=== PATIENT | female | born 1945 | race Caucasian/White ===

== ENCOUNTER 2023-12-10 19:44 | Emergency (ER) | payer MEDICARE, OTHER, SELFPAY ==
[2023-12-10 19:45] VITALS: BP 150/66
[2023-12-10 20:03] VITALS: BP 149/58
[2023-12-10 20:09] VITALS: BMI 39.6
[2023-12-10 20:23] LABS: % Basophils 0.3 % (0-2); % Eosinophils 1.2 % (0-6); % Immature Granulocytes 0.2 % (0-0.5); % Lymphocytes 9.9 % (20.5-51.1); % Monocytes 5.2 % (1.7-9.3); % Neutrophils 83.2 % (42.2-75.2); Absolute Eosinophils 0.2 10^3/uL (0-0.7); Absolute Lymphocytes 1.2 10^3/uL (1.2-3.4); Absolute Monocytes 0.6 10^3/uL (0.1-0.6); Absolute Neutrophils 10.1 10^3/uL (1.4-6.5); Hematocrit 38.2 % (37.0-47.0); Hemoglobin 12.6 g/dL (12.0-16.0); Mean Corpuscular Hgb 30.5 pg (27.0-31.0); Mean Corpuscular Volume 92.5 fL (81.0-99.0); Mean Platelet Volume 10.1 fL (7.4-10.4); Nucleated Red Blood Cells % 0 %; Platelet Count 286 10^3/uL (130-400); Red Blood Cell Count 4.13 10^6/uL (4.20-5.40); Red Cell Dist. Width 13.7 % (11.5-14.5); White Blood Cell Count 12.1 10^3/uL (4.8-10.8)
--- NOTE | 2023-12-10 20:44 | ED.GENMED ---
History of Present Illness
General
Chief Complaint: Fainting/Passed Out
Source: patient
Exam Limitations: none
Time Seen by Provider: 12/10/23 20:30
Travel History
Have you had any contact with someone who has COVID-19?: No
Do you have any symptoms of coronavirus? Fever > 100 degrees, chills, cough, shortness of breath, sore throat, loss of taste or smell, muscle aches, or headache?: No
History of Present Illness
History of Present Illness:
See MDM
Past History
Past History
ED Past Medical History: HTN, NIDDM and Other (DVT); Negative Asthma or Hypercholesterolemia
ED Past Surgical History: Gynecological (Tubel)
Social History
Tobacco: Former smoker
Alcohol: None
Personal:
Living: alone
Employment: Employed
Phy Exam
Physical Exam
Physical Exam:
See MDM
Course
Orders/Labs/Results
Orders:
Orders
12/10/23 19:48
Electrocardiogram (*1) Urgent
Reason for Study: Syncope
EKG- Treatment ONCE
Accucheck Once [Bedside Glucose Monitoring-ONCE] As Directed
12/10/23 20:16
Complete Blood Count/With Diff Urgent
Comprehensive Metabolic Panel Urgent
12/10/23 20:55
Prothrombin Time Urgent
Abnormal Lab Results
12/10/23 12/10/23
20:16 20:55
WBC 12.1 H 10^3/uL
(4.8-10.8)
RBC 4.13 L 10^6/uL
(4.20-5.40)
Absolute Neuts (auto) 10.1 H 10^3/uL
(1.4-6.5)
Neutrophils % 83.2 H %
(42.2-75.2)
Lymphocytes % 9.9 L %
(20.5-51.1)
PT 46.8 H Sec
(11.4-14.6)
INR 5.02 H*
Sodium 131 L mmol/L
(135-145)
Carbon Dioxide 19 L mmol/L
(22-30)
BUN 35 H mg/dl
(7-17)
Glucose 264 H mg/dl
(70-99)
12/10/23 20:16
12/10/23 20:16
Vital Signs
Initial and Last Documented VS:
Initial Vital Signs
Temp Pulse Resp BP Pulse Ox
98.4 F 62 18 150/66 96
12/10/23 19:45 12/10/23 19:45 12/10/23 19:45 12/10/23 19:45 12/10/23 19:45
Last Documented Vital Signs
Temp Pulse Resp BP Pulse Ox
98.4 F 63 20 149/62 94
12/10/23 19:45 12/10/23 21:45 12/10/23 21:45 12/10/23 21:00 12/10/23 21:45
MDM/Problems Addressed
Differential Diagnosis Includes:
HPI and MDM Narrative:
78-year-old female presenting with a syncopal episode. Patient was standing and she started to shake and feel comfortable. She became nauseous. Family brought her down to the floor and she passed out for a moment. No seizure-like activity was
noted. No postictal state. Patient does not recollect the event. EMS arrived and patient was found to be hyperglycemic. Patient is a uyk-sjtogdq-asoxresoz diabetic and claims compliance
Patient currently lying in bed without any complaints. I discussed my concern for hyperglycemia as possible cause for mild dehydration as possible cause for vasovagal syncope.
I discussed that I cannot reliably rule out cardiac arrhythmia. Given how well-appearing she is, we discussed likely discharge home with tighter blood sugar control and speaking to her primary care doctor about possible Holter monitor
Physical exam
General: Well appearing and non-toxic
HEENT: protecting airway
Neck: appears supple
CV: No evidence of cyanosis. Regular rate and rhythm
Resp: No accessory muscle use. Lungs clear
Abd: Non-distended
Extremities: No deformities
Neuro: alert
Psych: Normal affect
Skin: Intact
Problems Addressed including Acute and Chronic Conditions affecting care:
1. Syncope
Acuity: acute
Prognosis: stable
Details: Likely vasovagal. Patient without complaint at the moment. EKG nonischemic
2. Hyperglycemia
Acuity: acute
Prognosis: stable
Details: Discussed talking to PCP about better blood control. Will give dose of insulin
Updates
I discussed her elevated INR. There is no evidence of bleeding. Discussed skipping her next 2 INR doses. In regards to her hyperglycemia, there is no evidence of DKA. We discussed insulin versus increasing her metformin. She will take an extra
dose of metformin at home. She will call her PCP tomorrow
Differential Diagnosis (but not limited to): Vasovagal syncope, cardiac arrhythmia, dehydration
Testing considered: Troponin but she denies chest pain
Drug therapy (if applicable): OTC meds, please see d/c instruction regarding Rx drugs
Amount and/or Complexity of Data Reviewed
Clinical info obtained from: Patient
External data reviewed: N/A
Labs I independently reviewed (but not limited to): Hyperglycemia without evidence of DKA
Radiology: N/A
Pulse Ox: not hypoxic
EKG independently reviewed: Sinus rhythm, normal axis, no STEMI
[employer] Consultant: Sinus rhythm
Critical Care: N/A
Risk of Complication:
Social Determinants of health: Good social support
Discussed with other providers: N/A
Escalation of Care includes Admit/Obs: After being observed in the Emergency Department, pt stable for discharge.
Occasional wrong word or 'sound a like' substitutions may have occurred due to the inherent limitations of voice recognition software. Read the chart carefully and recognize, using context, where substitutions have occurred.
*Critical Care Note
Total Time (30-74mins, 75-104mins- exclusive of procedures): Not Applicable
ED Attending Note
-
Portions of this chart may have been created with voice recognition software.� Occasional wrong word or��sound alike� substitutions may have occurred due to the inherent limitations of voice recognition software.
Discharge Plan
Departure
Patient Disposition: Home (Routine Discharge)
Date of Disposition: 12/10/23
Time of Disposition: 22:03
Patient with high blood pressure during this ER visit?: Yes
Discharge Problem:
Syncope, Hyperglycemia
Instructions: BLOOD PRESSURE
Prescriptions:
No Action
apixaban [Eliquis DVT-PE Treat 30D Start] 5 MG tablets,dose pack
5 - 10 mg PO DIRECTED Qty: 1 0RF
Referrals:
Lilian Carrera, DO [Family Provider] -
Activity Restrictions/Additional Instructions:
As we discussed, your INR is 5.02. Please skip your next 2 doses of Coumadin.
Your blood sugar was also elevated today. It was 264. Without checking your fingerstick routinely at home, it is possible that it has been elevated for quite some time. Please take an extra dose of metformin when you go home today. If your blood
sugar is still greater than 200 in the morning, you can take 1000 mg of metformin in the morning.
Please call your primary care physician first thing tomorrow morning and discuss all of this.
There is always the possibility of an abnormal heart rhythm that caused you to pass out. Please talk to your doctor about a possible Holter monitor.
Please return for any worsening symptoms.
You may return at any time if you have further concerns.
Interventions
Interventions:
*Risk Screen - Suicide Last Done: 12/10/23 19:45
*General Assessment Last Done: 12/10/23 20:09
*Neglect/Abuse Screening Last Done: 12/10/23 19:45
ED- Fall Risk Assessment Last Done: 12/10/23 20:09
*ED COVID-19 Vaccine History Last Done: 12/10/23 20:13
ED- Cardiac Assessment Last Done: 12/10/23 20:09
ED- Neurological Assessment Last Done: 12/10/23 20:09
[2023-12-10 20:45] LABS: ALT (SGPT) 16 U/L (0-35); AST (SGOT) 21 U/L (14-36); Albumin 4.2 g/dl (3.5-5.0); Alkaline Phosphatase 98 U/L (38-126); Blood Urea Nitrogen 35 mg/dl (7-17); Carbon Dioxide 19 mmol/L (22-30); Chloride 101 mmol/L (98-107); Estimated Creatinine Clearance 53 ml/min; Glucose 264 mg/dl (70-99); Potassium 4.5 mmol/L (3.5-5.1); Sodium 131 mmol/L (135-145); Total Bilirubin 0.5 mg/dl (0.2-1.3); Total Protein 7.2 g/dl (6.3-8.2); eGFR > 60.00
[2023-12-10 21:00] VITALS: BP 149/62
[2023-12-10 21:13] LABS: PT 46.8 Sec (11.4-14.6)
[2023-12-10 21:15] LABS: INR 5.02
== END 2023-12-10 22:13 | disposition home or self-care (01) ==
LOC: EMR 19:44
PROVIDERS: EMERGENCY PHYSICIAN Student in an Organized Health Care Education/Training Program; FAMILY PHYSICIAN Family Medicine
DX: R55 Syncope and collapse (principal); E11.65 Type 2 diabetes mellitus with hyperglycemia; E86.0 Dehydration; I10 Essential (primary) hypertension; Z87.891 Personal history of nicotine dependence
CPT/HCPCS: 99284; 80053; 85025; 85610; 93005

== ENCOUNTER 2024-08-25 02:16 | Inpatient (IN) | payer MEDICARE, OTHER, SELFPAY ==
[2024-08-24 23:15] VITALS: BP 215/91
[2024-08-24 23:42] VITALS: BP 200/125
[2024-08-24 23:47] VITALS: BMI 34.6
--- NOTE | 2024-08-24 23:54 | ED.GENMED ---
History of Present Illness
<Lee Mathis PA-C - Last Filed: 08/25/24 00:58>
General
Chief Complaint: Cough
Source: patient
Exam Limitations: none
Time Seen by Provider: 08/24/24 23:33
History of Present Illness
History of Present Illness:
79-year-old female presents with several days worth of worsening cough and fatigue. She has history of clots and is on Coumadin. No prior diagnosis of A-fib. She denies any leg swelling. She was hypoxic upon EMS arrival and was started on 2 L of
oxygen. She tried to go to the bathroom and got weak and could not stand up from the toilet and could not get herself off the floor. She did not injure herself or strike her head from this episode. Of note, patient's INR was supratherapeutic
earlier this week and she has not been taking it. She last checked her INR yesterday which is 3.8.
Past History
<Lee Mathis PA-C - Last Filed: 08/25/24 00:58>
Past History
ED Past Medical History: HTN, NIDDM and Other (DVT); Negative Asthma or Hypercholesterolemia
ED Past Surgical History: Gynecological (Tubel)
Social History
Tobacco: Former smoker
Alcohol: None
Personal:
Living: alone
Employment: Employed
Phy Exam
<Lee Mathis PA-C - Last Filed: 08/25/24 00:58>
Physical Exam
Physical Exam:
General: Well-appearing female no respiratory distress
HEENT: Normocephalic atraumatic
Heart: Tachycardic and irregular
Lungs: Slightly diminished on the right clear on the left
Abdomen is soft nontender nondistended
Extremities: No cyanosis or edema
Sepsis
<Lee Mathis PA-C - Last Filed: 08/25/24 00:58>
Sepsis Screening
Sepsis Assessment: Sepsis Ruled Out
Sepsis Screen
Sepsis Screen: Sepsis Ruled Out
Date: 08/25/24
Time: 00:58
<Meliton Lewis MD - Last Filed: 08/25/24 01:37>
Sepsis Screen
Sepsis Screen: Sepsis Ruled Out
Date: 08/25/24
Time: 01:36
Course
<Lee Mathis PA-C - Last Filed: 08/25/24 00:58>
Orders/Labs/Results
Orders:
Orders
08/24/24 23:34
Electrocardiogram (*1) Urgent
Reason for Study: Other
Other Reason for Exam: Possible Sepsis
Cardiac Monitoring- Treatment ONCE
EKG- Treatment ONCE
O2 Therapy [RESP] Urgent
Titrate/Wean O2 to maintain O2 sat greater than (%): 93
Special Instructions: TO MAINTAIN CONTINUOUS O2 SATS > OR = 93%
Pulse Ox/cont/shift [RESP] Urgent
Quantity: 1
Special Instructions: CONTINUOUS
08/24/24 23:36
Complete Blood Count/With Diff Urgent
Comprehensive Metabolic Panel Urgent
08/24/24 23:53
COVID-19 Antigen Urgent
Source: Nasal Swab
NT-proBNP Urgent
Prothrombin Time Urgent
Troponin I Urgent
Influenza A+B Rapid Molecular Urgent
CORNELIO Source: Nasal Swab
Specimen Description:
08/25/24 00:00
CR Chest - 2 Views Urgent
Reason For Exam: cough, weakness
08/25/24 00:19
0.9% Sodium Chloride 1000 ml [Nss] 1,000 ml IV BOLUS
08/25/24 00:53
Azithromycin 500 mg/250 ml [Zithromax Infusion] 500 mg in 250 ml IV NOW
CefTRIAXone [Rocephin] 1,000 mg IV NOW STA
Abnormal Lab Results
08/24/24 08/24/24
23:36 23:53
WBC 13.0 H 10^3/uL
(4.8-10.8)
MCHC 32.1 L g/dL
(33.0-37.0)
MPV 11.0 H fL
(7.4-10.4)
PT 24.9 H Sec
(11.4-14.6)
BUN 24 H mg/dl
(7-17)
Creatinine 1.2 H mg/dL
(0.6-1.0)
Glucose 377 H mg/dl
(70-99)
Calcium 15.2 H* mg/dl
(8.4-10.2)
AST 38 H U/L
(14-36)
08/24/24 23:36
08/24/24 23:36
Vital Signs
Initial and Last Documented VS:
Initial Vital Signs
Temp Pulse Resp BP Pulse Ox
98.7 F 126 24 215/91 93
08/24/24 23:15 08/24/24 23:15 08/24/24 23:15 08/24/24 23:15 08/24/24 23:15
Last Documented Vital Signs
Temp Pulse Resp BP Pulse Ox
98.7 F 123 17 200/125 93
08/24/24 23:15 08/24/24 23:45 08/24/24 23:45 08/24/24 23:42 08/24/24 23:45
<Meliton Lewis MD - Last Filed: 08/25/24 01:37>
Orders/Labs/Results
Orders:
Orders
08/24/24 23:34
Electrocardiogram (*1) Urgent
Reason for Study: Other
Other Reason for Exam: Possible Sepsis
Cardiac Monitoring- Treatment ONCE
EKG- Treatment ONCE
O2 Therapy [RESP] Urgent
Titrate/Wean O2 to maintain O2 sat greater than (%): 93
Special Instructions: TO MAINTAIN CONTINUOUS O2 SATS > OR = 93%
Pulse Ox/cont/shift [RESP] Urgent
Quantity: 1
Special Instructions: CONTINUOUS
08/24/24 23:36
Complete Blood Count/With Diff Urgent
Comprehensive Metabolic Panel Urgent
08/24/24 23:53
COVID-19 Antigen Urgent
Source: Nasal Swab
NT-proBNP Urgent
Prothrombin Time Urgent
Troponin I Urgent
Influenza A+B Rapid Molecular Urgent
CORNELIO Source: Nasal Swab
Specimen Description:
08/25/24 00:00
CR Chest - 2 Views Urgent
Reason For Exam: cough, weakness
08/25/24 00:19
0.9% Sodium Chloride 1000 ml [Nss] 1,000 ml IV BOLUS
08/25/24 00:53
Azithromycin 500 mg/250 ml [Zithromax Infusion] 500 mg in 250 ml IV NOW
CefTRIAXone [Rocephin] 1,000 mg IV NOW STA
Abnormal Lab Results
08/24/24 08/24/24
23:36 23:53
WBC 13.0 H 10^3/uL
(4.8-10.8)
MCHC 32.1 L g/dL
(33.0-37.0)
MPV 11.0 H fL
(7.4-10.4)
PT 24.9 H Sec
(11.4-14.6)
BUN 24 H mg/dl
(7-17)
Creatinine 1.2 H mg/dL
(0.6-1.0)
Glucose 377 H mg/dl
(70-99)
Calcium 15.2 H* mg/dl
(8.4-10.2)
AST 38 H U/L
(14-36)
08/24/24 23:36
08/24/24 23:36
Vital Signs
Initial and Last Documented VS:
Initial Vital Signs
Temp Pulse Resp BP Pulse Ox
98.7 F 126 24 215/91 93
08/24/24 23:15 08/24/24 23:15 08/24/24 23:15 08/24/24 23:15 08/24/24 23:15
Last Documented Vital Signs
Temp Pulse Resp BP Pulse Ox
98.7 F 123 17 200/125 93
08/24/24 23:15 08/24/24 23:45 08/24/24 23:45 08/24/24 23:42 08/24/24 23:45
<Lee Mathis PA-C - Last Filed: 08/25/24 00:58>
MDM/Problems Addressed
Differential Diagnosis Includes:
Patient here with cough. Question viral illness such as COVID or flu versus pneumonia versus CHF. Unlikely to be PE secondary to anticoagulated state.
She is hypoxic here going down to 88% on room air. Now on 2 L of oxygen. Chest x-ray ordered COVID flu test ordered labs including troponin, BNP INR pending
<Lee Mathis PA-C - Last Filed: 08/25/24 00:58>
*Critical Care Note
Total Time (30-74mins, 75-104mins- exclusive of procedures): Not Applicable
<Lee Mathis PA-C - Last Filed: 08/25/24 00:58>
Update Note
Update Note:
Patient's white blood cell count is 13,000 BNP is only 522. She does not look overloaded. Chest x-ray could be pneumonia in the right upper lobe versus mild pulmonary edema. Will gently hydrate given that her calcium is 15.2. Will start on
antibiotics to cover for pneumonia. She is hypoxic requiring 2 L of oxygen. Will admit to hospital
ED Attending Note
<Lee Mathis PA-C - Last Filed: 08/25/24 00:58>
-
Portions of this chart may have been created with voice recognition software.� Occasional wrong word or��sound alike� substitutions may have occurred due to the inherent limitations of voice recognition software.
<Meliton Lewis MD - Last Filed: 08/25/24 01:37>
ED Attending Note
Patient seen and examined by attending physician: Yes
I performed the substantive portion of visit, reviewed & personally made and approve the management plan that is documented in note by myself or CHINEDU.: Yes
ED Attending Note:
Cough for days. Increase shortness of breath today. Some myalgias. No pleuritic pain or chest pain. No fever at home.
On exam patient is nontoxic minimally tachypneic at rest. Mildly tachycardic at rest.
Lungs have crackles mostly in the right base. No wheezing or rhonchi. Heart tachycardic and regular. Abdomen soft and nontender. Extremities are unremarkable. Warm and dry. Perfusing well.
Most suspicious of an infectious etiology with a leukocytosis, possible pneumonia on x-ray. X-ray could be interpreted as CHF however no CHF history. Is actually lost weight. No leg edema reasonably normal proBNP.
Will give careful fluids, antibiotics. Hypercalcemia also needs to be worked up and managed. Fluids should help.
Discharge Plan
Departure
Patient Disposition: Admit
Date of Disposition: 08/25/24
Time of Disposition: 00:55
Admit to: Telemetry
Presentation/result/management discussed w/ accepting /: Hospitalist
Discharge Problem:
Pneumonia, Hypercalcemia
Prescriptions:
No Action
apixaban [Eliquis DVT-PE Treat 30D Start] 5 MG tablets,dose pack
5 - 10 mg PO DIRECTED Qty: 1 0RF
Referrals:
Lilian Carrera DO [Family Provider] -
Interventions
Interventions:
*Risk Screen - Suicide Last Done: 08/24/24 23:15
*General Assessment Last Done: 08/24/24 23:15
*Neglect/Abuse Screening Last Done: 08/24/24 23:15
ED- Fall Risk Assessment Last Done: 08/24/24 23:15
*ED COVID-19 Vaccine History Last Done: 08/24/24 23:15
ED- Pulmonary Assessment Last Done: 08/24/24 23:43
Discharge Date and Time
Print Language: [place]
[2024-08-25] VITALS (20 sets, daily range): BP systolic 136–189; BP diastolic 59–104; PULSE 105–116; O2SAT 95
[2024-08-25] LABS: Hematocrit 39.9 % (37.0-47.0); Hemoglobin 12.8 g/dL (12.0-16.0); Mean Corp Hgb Conc. 32.1 g/dL (33.0-37.0); Mean Corpuscular Hgb 29.5 pg (27.0-31.0); Mean Corpuscular Volume 91.9 fL (81.0-99.0); Platelet Count 189 10^3/uL (130-400); Red Blood Cell Count 4.34 10^6/uL (4.20-5.40); Red Cell Dist. Width 13.3 % (11.5-14.5)
[2024-08-25 00:06] LABS: ALT (SGPT) 20 U/L (0-35); AST (SGOT) 38 U/L (14-36); Alkaline Phosphatase 114 U/L (38-126); Blood Urea Nitrogen 24 mg/dl (7-17); Carbon Dioxide 26 mmol/L (22-30); Chloride 101 mmol/L (98-107); Estimated Creatinine Clearance 38 ml/min; Glucose 377 mg/dl (70-99); Sodium 137 mmol/L (135-145); Total Bilirubin 0.3 mg/dl (0.2-1.3); eGFR 46.33
[2024-08-25 00:12] LABS: INR 2.24; PT 24.9 Sec (11.4-14.6)
[2024-08-25 00:21] LABS: Calcium 15.2 mg/dl (8.4-10.2)
[2024-08-25 00:24] LABS: COVID-19 Antigen Negative (Negative)
[2024-08-25 00:28] LABS: NT-proBNP 533 pg/ml; Troponin I 0.022 ng/ml
[2024-08-25] MEDS: NSS 1000 IV ×4 (00:39→23:38)
--- NOTE | 2024-08-25 01:31 | HPS.HSE ---
Family Physician
-
Family Physician: Lilian Carrera
Chief Complaint
-
Cough shortness of breath and weakness
History of Present Illness
This is a 79-year-old female with past medical history significant for ava-ddtcevb-aljlgqcga diabetes, hyperlipidemia, history of a right lower extremity DVT on Coumadin who presents to the emergency department with episode of weakness and unable to
get herself up in the setting of 1 week of worsening cough.
Patient reported that she started having a cough that is generally nonproductive for about 1 week ago. She also reports some left-sided flank pain. She does not have any significant dyspnea on exertion at baseline. Patient denies any lower
extremity swelling. She denies fevers or chills at home. She denies any known sick contacts. She denies any nausea or vomiting. She denies any diarrhea. She denies any urinary symptoms including dysuria, frequency urgency or incontinence. She
reported that she had a elevated INR 4 days ago and attributed to use of Mucinex. The INR was 6 at that time. Yesterday INR was down to 3.8. She denies any bleeding diathesis. Patient reports slight decreased appetite but no significant change.
She denies any changes in the color of her urine.
She is visibly called EMS today because she arose feeling very weak. She went to the bathroom and when she got up from the commode she felt like her leg gave way. She denied feeling lightheaded or dizzy. She denied any vision changes. She denies
having any chest pain or palpitations. She denied any diaphoresis. Patient reported that she had another episode of leg weakness later on in the day.
On arrival in the emergency department she was hypoxic and was placed on 2 L of oxygen. She was afebrile, she was hypertensive with initial systolic of 200 and tachycardic to 123. ECG showed a sinus tachycardia at 122. Troponin was 0.02. BNP was
500. COVID test was negative. Influenza test was negative. She had a white count of 13,000 with normal hemoglobin and platelet counts. INR was 2.4. Electrolytes are within normal limits. BUN was 24 and creatinine 1.2 with glucose of 337. The
x-ray was not particularly remarkable on my read without any obvious focal consolidation.
Medical History
Past Medical History
Past Medical History: Reports NIDDM
Additional Past Medical History:
DVT
Past Surgical History: Reports Gynocological (Tubal ligation)
Social History
Tobacco: Former Smoker
Alcohol: None
Drug: None
Personal:
Living: Alone
Employment: Retired
Family History
Family History: Not pertinent
Allergies / Home Medications
Allergies reflects when Allergies were last updated in [employer].
Home Medications with original date entered in [employer]
Allergy/Medication List:
Allergies
Allergy/AdvReac Type Severity Reaction Status Date / Time
latex Allergy Mild Rash Verified 08/24/24 23:14
Penicillins Allergy Rash Verified 08/24/24 23:14
Home Medications
Review of Systems
-
History Source: Patient
Constitutional: Reports No Symptoms
EENT: Reports No Symptoms
Respiratory: Reports Cough and Trouble Breathing
Cardiac: Reports No Symptoms
Abdomen/GI: Reports No Symptoms
: Reports Flank Pain
Musculoskeletal: Reports No Symptoms
Skin: Reports No Symptoms
Neurological: Reports No Symptoms
Endocrine: Reports No Symptoms
Hematologic/Lymphatic: Reports No Symptoms
Psych: Reports No Symptoms
Physical Exam
Vital Signs
Vital Signs
Temp Pulse Resp BP Pulse Ox
98.7 F 123 17 200/125 93
08/24/24 23:15 08/24/24 23:45 08/24/24 23:45 08/24/24 23:42 08/24/24 23:45
Physical Exam
General: Well Developed, Well Nourished and Conversant
HEENT: NormoCephalic, Anicteric, Moist mucous membranes, Atraumatic, PERRLA and [place] Conjunctivae
Respiratory: Clear (anteriorly) and Wheezes (occasional faint wheezes bilaterally)
Cardiac: S1/S2, Regular Rhythm and Tachycardia
Breast: Deferred by me
GI: Soft, Non Tender, Non Distended and Other (umbilical hernia, reducible)
Rectal: Deferred by Provider
Genito-urinary: Deferred by me
Musculoskeletal: No Clubbing, No Cyanosis and No Edema
Skin: Warm
Neuro: AO x 3
Hematologic/Lymphatic: No Lymphadenopathy
Psych: Calm
Laboratory Results
-
08/24/24 23:36
08/24/24 23:36
Laboratory Results
PT 24.9 Sec (11.4-14.6) H 08/24/24 23:53
INR 2.24 08/24/24 23:53
Total Bilirubin 0.3 mg/dl (0.2-1.3) 08/24/24 23:36
AST 38 U/L (14-36) H 08/24/24 23:36
ALT 20 U/L (0-35) 08/24/24 23:36
Alkaline Phosphatase 114 U/L (38-126) 08/24/24 23:36
Troponin I 0.022 ng/ml 08/24/24 23:53
Data Reviewed
-
Diagnostic Radiology: Image Personally Visualized and interpreted
Medical Tests (Nuc Med, Echo, EKG etc): Image Personally Visualized and interpreted
Lab Data: Labs Reviewed by me
Old Records: Reviewed
Impression/Plan
-
IMPRESSION:
79 y.o with h/o DVT on coumadin, diabetes, hld presenting with weakness after having one week of cough. Hypoxic in ED. Afebrile. Has leukocytosis. No obvious infiltrates. INR 2.4. Noted to have some hypercalcemia, renal function preserved.
COVID/FLu negative.
PLAN:
1. Suspected Pneumonia - Weakness, hypoxia and leukocytosis. No obvious infiltrates on my read but awaiting official read. No heart failure. Hypertensive.
- admit to telemetry
- check mrsa swab and legionella ag (low likelihood)
- IV ceftriaxone and doxycycline for now
- supportive care with oxygen, nebs and cough suppression
- check resp procal in am
2. Hypercalcemia - Ca 15.5. No remarkable evidence for severe dehydration. She is not on any supplementas. No prior h/o hypercalcemia or malignancy. ECG ST otherwise unremarkable. Weakness may be attributable. Total protein and albumin levels
WNL.
- check ionized calcium, vit D and pth levels
- continue hydration overnight
- reported flank pain, possible kidney stone, check u/a for blood and infection
3. DVT - h/o RLE DVT on coumadin. Takes 9mg every morning but has stopped for at least 5 days due to INR of >6 on monday. No recent changes in other meds but has been on mucinex.
- inr 2.4 today, restart coumadin at 6 and monitor
- unlikely PE given therapeutic INR
4. DM II - hyperglycemia here to 377. No DKA
- hold metformin
- continue glipizide
- insulin 3 units of regular and then low dose sliding scale
Code Status - Full Code.
[2024-08-25 01:52] LABS: % Basophils 0.5 % (0-2); % Eosinophils 1.3 % (0-6); % Lymphocytes 11.7 % (20.5-51.1); % Monocytes 6.4 % (1.7-9.3); % Neutrophils 73.1 % (42.2-75.2); Absolute Basophils 0.1 10^3/uL (0-0.2); Absolute Eosinophils 0.2 10^3/uL (0-0.7); Absolute Immature Granulocytes 0.9 10^3/uL (0-0.05); Absolute Lymphocytes 1.5 10^3/uL (1.2-3.4); Absolute Monocytes 0.8 10^3/uL (0.1-0.6); Absolute Neutrophils 9.5 10^3/uL (1.4-6.5); Nucleated Red Blood Cells % 0 %
[2024-08-25] MEDS: ROCEPHIN 1000 MG IV ×2 (01:54→23:38)
[2024-08-25] MEDS: FLUSH (NSS) 1 FLUSH IV (02:10)
[2024-08-25] MEDS: ZITHROMAX INFUSION 250 IV (02:12)
[2024-08-25 06:56] LABS: Hematocrit 36.8 % (37.0-47.0); Hemoglobin 11.8 g/dL (12.0-16.0); Mean Corp Hgb Conc. 32.1 g/dL (33.0-37.0); Mean Corpuscular Hgb 30.3 pg (27.0-31.0); Mean Corpuscular Volume 94.4 fL (81.0-99.0); Mean Platelet Volume 10.7 fL (7.4-10.4); Platelet Count 162 10^3/uL (130-400); Red Cell Dist. Width 13.5 % (11.5-14.5); White Blood Cell Count 12.8 10^3/uL (4.8-10.8)
[2024-08-25 07:06] LABS: INR 2.08; PT 23.5 Sec (11.4-14.6)
[2024-08-25 07:07] LABS: APTT 41.8 Sec (23.4-35.0)
[2024-08-25 07:25] LABS: Blood Urea Nitrogen 23 mg/dl (7-17); Carbon Dioxide 28 mmol/L (22-30); Chloride 103 mmol/L (98-107); Estimated Creatinine Clearance 45 ml/min; Glucose 241 mg/dl (70-99); Potassium 4.2 mmol/L (3.5-5.1); Sodium 138 mmol/L (135-145); eGFR 57.66
[2024-08-25 07:35] LABS: Calcium 14.3 mg/dl (8.4-10.2)
[2024-08-25 07:53] LABS: Vitamin D, 25-OH*** < 12.8 ng/mL (30-80)
--- NOTE | 2024-08-25 07:54 | EDRN ---
This RN just TT'd Dr. Huerta about 14.3 calcium -Good Morning, I see you are signed up as attending for Donna Stein in ED #[id number]. Instructor Physical Education just received a call from lab that pt's calcium is 14.3 (was 15.2 08/24 @ 23:36) KAREN HOLBROOK
--- NOTE | 2024-08-25 07:55 | EDRN ---
Dr. Huerta texted back and is informed.
[2024-08-25] MEDS: GLUCOTROL 2.5 MG PO (08:11)
[2024-08-25] MEDS: MUCINEX 600 MG PO ×2 (08:14→20:08)
[2024-08-25 08:20] LABS: Glucose - Point of Care 217 mg/dl (70-99)
--- NOTE | 2024-08-25 08:27 | EDRN ---
Physical therapy in room w/ pt at this time. Pharmacy called for insulin flexpen
--- NOTE | 2024-08-25 08:51 | EDRN ---
Diet tray ordered.
--- NOTE | 2024-08-25 08:58 | EDRN ---
Dr. Helm in room w/pt.
--- NOTE | 2024-08-25 09:06 | W.CON.NEPH ---
Consultation
-
Date/Time Consultation Requested: 08/25/24823
Date/Time Consultation Performed: 08/25/24929
Requesting Provider: Matthew Ruffin
Performing Provider: Cristiane Whitfield
Reason for Consultation: Hypercalcemia
Medical History
-
Chief Complaint: cough, sob
History of Present Illness:
79-year-old female with past medical history significant for aji-jwdxgte-hsdguhnjl diabetes on metformin, Actos, hyperlipidemia on statin, HTN on ARB, Diltiazem, history of a right lower extremity DVT on Coumadin who presents to the emergency
department with episode of weakness and unable to get herself up in the setting of 1 week of worsening cough.
Patient reported that she started having a cough that is generally nonproductive for about 1 week ago. Cough not improving and feels weak in general. She went to the bathroom last night and when she got up from the commode she felt like her leg gave
way, she buzzed her life alert. No dizziness or LOC. Patient denies any lower extremity swelling. She denies fevers or chills at home. She denies any known sick contacts. She denies any nausea or vomiting. She denies any diarrhea but has
constipation for 1week, No CP. She denies any urinary symptoms including dysuria. She reported that she had a elevated INR at 6, 4 days ago and attributed to use of Mucinex. In ER She was hypoxic and was placed on 2 L of oxygen. She was
afebrile but was hypertensive with initial systolic of 200 and tachycardic to 123. ECG showed a sinus tachycardia. CXR shows possible pNA. BNP was 500. COVID test was negative. Influenza test was negative. INR was 2.4. cr1.2, james 15.5 . BUN was
24 with glucose of 337.
Past Medical History
DVT - h/o RLE DVT on coumadin
DM II
Primary HTN
HLD
Past Surgical History: Gynecological (tubal ligation) and Other
Social History
Tobacco: Former Smoker
Alcohol: None
Living: Alone
Employment: Retired
Family History
Family History: Not Pertinent
Allergies / Home Medications
Allergy/AdvReac Type Severity Reaction Status Date / Time
latex Allergy Mild Rash Verified 08/24/24 23:14
Penicillins Allergy Rash Verified 08/24/24 23:14
�Medication �Instructions �Recorded �Confirmed �Type
apixaban 5 mg (74 tabs) tablets in 5 - 10 mg (1 - 2 x 5 mg (74 tabs)) 04/24/20 04/27/20 Rx
a dose pack (Eliquis DVT-PE Treat PO DIRECTED ##1
30D Start)
Review of Systems
-
All complete 12 point review of system have been inquired and found negative other than stated in HPI
Physical Exam
Vital Signs
Vital Signs
Temp Pulse Resp BP Pulse Ox
98.7 F 108 19 183/73 94
08/25/24 08:15 08/25/24 10:31 08/25/24 10:31 08/25/24 10:31 08/25/24 10:31
Lab Results
WBC 12.8 10^3/uL (4.8-10.8) H 08/25/24 06:41
RBC 3.90 10^6/uL (4.20-5.40) L 08/25/24 06:41
Hgb 11.8 g/dL (12.0-16.0) L 08/25/24 06:41
Hct 36.8 % (37.0-47.0) L 08/25/24 06:41
Plt Count 162 10^3/uL (130-400) 08/25/24 06:41
Sodium 138 mmol/L (135-145) 08/25/24 06:41
Potassium 4.2 mmol/L (3.5-5.1) 08/25/24 06:41
Chloride 103 mmol/L (98-107) 08/25/24 06:41
Carbon Dioxide 28 mmol/L (22-30) 08/25/24 06:41
BUN 23 mg/dl (7-17) H 08/25/24 06:41
Creatinine 1.0 mg/dL (0.6-1.0) 08/25/24 06:41
eGFR 57.66 08/25/24 06:41
Glucose 241 mg/dl (70-99) H 08/25/24 06:41
Calcium 14.3 mg/dl (8.4-10.2) H* 12 06:41
Pjr-P-Vwgwtmbrrus Pept 533 pg/ml 08/24/24 23:53
Albumin 4.0 g/dl (3.5-5.0) 08/24/24 23:36
CXR:
IMPRESSION:
New findings concerning for right-sided pneumonia.
Physical Exam
General: Awake, Alert, Oriented, AOx3, No Distress and Nontoxic
HEENT: EOMI, Anicteric, Conjunctivae Clear, Ear/Nose Intact, Neck Supple and No JVD
Respiratory: Clear, Normal Excursion and Nonlabored Respirations
Cardiac: S1/S2, Regular Rate/Rhythm and Murmur
Breast: Deferred by me
Abdomen: Soft and Nontender
Musculoskeletal: No Cyanosis and No Edema
Skin: No Rash
Neuro: Nonfocal/Grossly Intact
Psych: Mood/afflect pleasant, Insight/judgement good and Appropriate
Data Reviewed
-
Radiology: Report Reviewed by me and Discussed with Patient
Labs: Labs Reviewed by me and Discussed with Patient
Assessment/Plan
-
IMP:
Hypercalcemia - Ca 15.5
Suspected Pneumonia
possible mild BLANCHE
DVT - h/o RLE DVT on coumadin
DM II
Primary HTN
Plan:
A/w cough and sob
Hypercalcemia-no clear etiology, not on james meds
check PTH, vit D, paraprotein w/u
cont IVF, will dose Pamidronate
may need CT imaging to r/o occult malig if above are neg
cr at 1.2, baseline 0.9
UA likely UTI, await cx
concern of PNA , BNP low -abx per primary
BP are high, resume home meds
labs in am
d/w pt
--- NOTE | 2024-08-25 10:00 | EDRN ---
Pt was incontinent of urine as purewyck was not working. Pericare given and purewyck was changed, suction checked and working.
[2024-08-25] MEDS: NOVOLOG FLEXPEN-LOW RESISTANCE 300 UNITS SC (10:06)
[2024-08-25 10:18] LABS: TSH Reflex To Free T4 0.98 uIU/ml (0.47-4.68)
[2024-08-25] MEDS: AREDIA 280 MG IV (10:23)
--- NOTE | 2024-08-25 10:28 | EDRN ---
Dr. Huerta in room w/ pt. Ionized calcium blood sent to lab. Son just arrived to visit w/ pt.
[2024-08-25 10:35] LABS: Ionized Calcium 2.06 mMOL/L (1.15-1.33)
--- NOTE | 2024-08-25 10:35 | EDRN ---
Pt ate 50% of her breakfast at this time.
--- NOTE | 2024-08-25 11:00 | W.PN.UPDATE ---
Update Note
Progress Note Update
Overnight physician seen and examined overnight of independent physician. Resting in bed. States she is feeling better. On oxygen. Denies any prior history of high calcium. Denies any prior history of malignancy. Denies any flank pain or
hematuria. States of history of DVT, hypertension and diabetes. Does not have a medication list. Home med rec is pending.
General: Well Developed, Well Nourished and Conversant
HEENT: NormoCephalic, Anicteric, Moist mucous membranes, Atraumatic, PERRLA and [place] Conjunctivae
Respiratory: Wheezes (occasional faint wheezes bilaterally), on oxygen
Cardiac: S1/S2, Regular Rhythm and Tachycardia
GI: Soft, Non Tender, Non Distended and Other (umbilical hernia, reducible)
Musculoskeletal: No clubbing, No Cyanosis and No Edema
Skin: Warm
Neuro: AO x 3
Hematologic/Lymphatic: No Lymphadenopathy
Psych: Calm
IMPRESSION:
79 y.o with h/o DVT on coumadin, diabetes, hld presenting with weakness after having one week of cough. Hypoxic in ED. Afebrile. Has leukocytosis. No obvious infiltrates. INR 2.4. Noted to have some hypercalcemia, renal function preserved.
COVID/FLu negative.
Hypercalcemia - Ca 15.5. No remarkable evidence for severe dehydration. She is not on any supplementas. No prior h/o hypercalcemia or malignancy. ECG ST otherwise unremarkable. Weakness may be attributable. Total protein and albumin levels
WNL.
- check ionized calcium, vit D and pth levels
- continue hydration
- IV pamidronate added.
- severe low Vit D level. TSH wnl. No hx of cancer. Await PTH level
- nephro eval
Suspected Pneumonia - Weakness, hypoxia and leukocytosis. No obvious infiltrates on my read but awaiting official read. No heart failure. Hypertensive.
- admit to telemetry
- check mrsa swab and legionella ag (low likelihood)
- IV ceftriaxone and doxycycline for now
- supportive care with oxygen, nebs and cough suppression
- check resp procal in am
DVT - h/o RLE DVT on coumadin. Takes 9mg every morning but has stopped for at least 5 days due to INR of >6 on monday. No recent changes in other meds but has been on mucinex.
- inr 2.08 today, restart coumadin at 6 and monitor
- Daily INR.
DM II - hyperglycemia here to 377. No DKA
- hold metformin
- continue glipizide
- insulin 3 units of regular and then low dose sliding scale
Elevated Cr likely 2/2 dehydration
-Cr downtrended. IVF for now.
Primary HTN
-confirm home meds
-If unable to confirm will add IV prn meds
DVT ppx-coumadin
Code Status - Full Code.
d/w with son at bedside in details
--- NOTE | 2024-08-25 11:20 | EDRN ---
Med rec completed as best as this RN could w/ Dr. Huerta TT'd and also TT'd both coumadin and glipizide in question, all other meds checked out w/ pt, list and pharmacist Malu. Pt stated she takes 1.5 tablets of 6 mg = total of 9 mg of warfarin qpm.
[2024-08-25 12:08] LABS: Urine Albumin Trace (Neg - Trace); Urine Bilirubin Negative (Negative); Urine Character Very Cloudy (Clear); Urine Color Yellow; Urine Glucose Negative (Negative); Urine Ketone Negative (Negative); Urine Leukocyte 2+ (Negative); Urine Nitrite Negative (Negative); Urine Occult Blood 1+ (Negative); Urine Urobilinogen Negative (Neg - 1+)
[2024-08-25 12:47] LABS: Urine Bacteria Moderate (Negative); Urine White Cell 80-90 /HPF (0-5)
[2024-08-25 13:14] LABS: Glucose - Point of Care 130 mg/dl (70-99)
[2024-08-25] MEDS: NOVOLOG FLEXPEN-LOW RESISTANCE SC (13:18)
[2024-08-25] MEDS: CARDIZEM CD 240 MG PO (13:35)
[2024-08-25] MEDS: ZEBETA 5 MG PO (13:35)
[2024-08-25] MEDS: COZAAR 100 MG PO (13:35)
[2024-08-25] MEDS: NOVOLOG FLEXPEN-LOW RESISTANCE 1 UNITS SC (18:33)
[2024-08-25] MEDS: COUMADIN 6 MG PO (18:33)
[2024-08-25 18:39] LABS: Glucose - Point of Care 179 mg/dl (70-99)
[2024-08-25] MEDS: VIBRAMYCIN 100 MG PO (20:08)
[2024-08-25 21:45] LABS: Glucose - Point of Care 273 mg/dl (70-99)
[2024-08-25] MEDS: STERILE WATER FOR INJECTION 10 ML IV (23:38)
[2024-08-26 03:00] VITALS: BP 157/78
[2024-08-26 07:04] VITALS: BP 164/74
[2024-08-26 07:29] LABS: INR 1.54; PT 18.8 Sec (11.4-14.6)
[2024-08-26 07:39] LABS: Hematocrit 39.6 % (37.0-47.0); Hemoglobin 12.2 g/dL (12.0-16.0); Mean Corp Hgb Conc. 30.8 g/dL (33.0-37.0); Mean Corpuscular Hgb 29.5 pg (27.0-31.0); Mean Corpuscular Volume 95.7 fL (81.0-99.0); Mean Platelet Volume 10.7 fL (7.4-10.4); Platelet Count 142 10^3/uL (130-400); Red Blood Cell Count 4.14 10^6/uL (4.20-5.40); Red Cell Dist. Width 13.4 % (11.5-14.5); White Blood Cell Count 11.3 10^3/uL (4.8-10.8)
[2024-08-26 07:39] LABS: Glucose - Point of Care 182 mg/dl (70-99)
[2024-08-26 07:56] LABS: ALT (SGPT) 22 U/L (0-35); AST (SGOT) 50 U/L (14-36); Albumin 3.8 g/dl (3.5-5.0); Alkaline Phosphatase 107 U/L (38-126); Blood Urea Nitrogen 24 mg/dl (7-17); Calcium 13.5 mg/dl (8.4-10.2); Carbon Dioxide 27 mmol/L (22-30); Chloride 102 mmol/L (98-107); Estimated Creatinine Clearance 41 ml/min; Glucose 190 mg/dl (70-99); Potassium 3.8 mmol/L (3.5-5.1); Sodium 137 mmol/L (135-145); Total Bilirubin 0.3 mg/dl (0.2-1.3); Total Protein 6.6 g/dl (6.3-8.2); eGFR 51.43
[2024-08-26 08:23] LABS: % Basophils 0.5 % (0-2); % Eosinophils 1.4 % (0-6); % Immature Granulocytes 8.5 % (0-0.5); % Lymphocytes 6.8 % (20.5-51.1); % Monocytes 4.3 % (1.7-9.3); % Neutrophils 78.5 % (42.2-75.2); Absolute Basophils 0.1 10^3/uL (0-0.2); Absolute Eosinophils 0.2 10^3/uL (0-0.7); Absolute Lymphocytes 0.8 10^3/uL (1.2-3.4); Absolute Monocytes 0.5 10^3/uL (0.1-0.6); Absolute Neutrophils 8.8 10^3/uL (1.4-6.5); Nucleated Red Blood Cells % 0 %
--- NOTE | 2024-08-26 08:38 | PTCARENOTE ---
Lab informed this RN of critical calcium result= 13.5. made aware.
[2024-08-26] MEDS: ZOLOFT 50 MG PO (08:44)
[2024-08-26] MEDS: NSS 1000 IV (08:44)
[2024-08-26] MEDS: VIBRAMYCIN 100 MG PO ×2 (08:44→20:30)
[2024-08-26] MEDS: ZEBETA 5 MG PO (08:44)
[2024-08-26] MEDS: CARDIZEM CD 240 MG PO (08:44)
[2024-08-26] MEDS: MUCINEX 600 MG PO ×2 (08:44→20:30)
[2024-08-26] MEDS: COZAAR 100 MG PO (08:44)
[2024-08-26] MEDS: LIPITOR 20 MG PO (08:44)
[2024-08-26] MEDS: NOVOLOG FLEXPEN-LOW RESISTANCE 1 UNITS SC ×3 (09:41→18:03)
--- NOTE | 2024-08-26 10:51 | W.PN.NEPH.PH ---
Today's Communication / Plan
-
Follow-up BMP and calcium levels
will hold further IVFs after current bag completed
Assessment/Plan
-
IMP:
Hypercalcemia - Ca 15.5
Suspected Pneumonia
possible mild BLANCHE
DVT - h/o RLE DVT on coumadin
DM II
Primary HTN
Plan:
A/w cough and sob
Hypercalcemia-no clear etiology, not on james meds
Calcium down to 13.5 after pamidronate administered
checked PTH, vit D, paraprotein w/u
may need CT imaging to r/o occult malignancy if above are neg
UA likely UTI, await cx
concern of PNA , BNP low -abx per primary
Will allow IV fluids to run out today
BP are high, resume home meds
labs in am
-
-
Date of Service: August 26, 2024
CC / HPI / ROS
-
Chief Complaint:
Hypercalcemia
History of Present Illness:
calcium down to 13.5
hemodynamically stable
creatinine down to 1
Review of Systems:
no chest pain
resting comfortably on NC O2
Labs
-
Labs:
WBC 11.3 10^3/uL (4.8-10.8) H 08/26/24 06:32
RBC 4.14 10^6/uL (4.20-5.40) L 08/26/24 06:32
Hgb 12.2 g/dL (12.0-16.0) 08/26/24 06:32
Hct 39.6 % (37.0-47.0) 08/26/24 06:32
Plt Count 142 10^3/uL (130-400) 08/26/24 06:32
Sodium 137 mmol/L (135-145) 08/26/24 06:32
Potassium 3.8 mmol/L (3.5-5.1) 08/26/24 06:32
Chloride 102 mmol/L (98-107) 08/26/24 06:32
Carbon Dioxide 27 mmol/L (22-30) 08/26/24 06:32
BUN 24 mg/dl (7-17) H 08/26/24 06:32
Creatinine 1.1 mg/dL (0.6-1.0) H 08/26/24 06:32
eGFR 51.43 08/26/24 06:32
Glucose 190 mg/dl (70-99) H 08/26/24 06:32
Calcium 13.5 mg/dl (8.4-10.2) H* 08/26/24 06:32
Jpw-K-Rzrnqekgzuj Pept 533 pg/ml 08/24/24 23:53
Albumin 3.8 g/dl (3.5-5.0) 08/26/24 06:32
Physical Exam
-
Vital Signs:
Vital Signs
Temp Pulse Resp BP Pulse Ox
99.0 F 74 16 164/74 94
08/26/24 07:04 08/26/24 08:44 08/26/24 07:04 08/26/24 08:44 08/26/24 07:04
Cardiovascular:: Regular rate and rhythm
Respiratory:: Bilateral: Coarse
Lung Excursion:: Normal
Abdomen:: Nontender and Soft
Bowel Sounds:: Normal
Extremity Edema:: None: Bilateral:
[2024-08-26 11:12] VITALS: BP 156/67
[2024-08-26 12:03] LABS: Glucose - Point of Care 175 mg/dl (70-99)
[2024-08-26] MEDS: TYLENOL 650 MG PO (14:09)
[2024-08-26 15:00] VITALS: BP 121/46
--- NOTE | 2024-08-26 16:01 | W.PN.HOSP.TC ---
Today's Communication/Plan
-
Trend BMP/ionized calcium daily
Follow-up SPEP/UPEP
Plan for bone scan
Continue antibiotics and wean O2
Assessment / Plan
Assessment / Plan
#Hypercalcemia
-Suspicion for malignancy such as multiple myeloma versus other occult neoplasm
-Presented with calcium of 15.5, s/p pamidronate, calcium down to 13.5 today
-Vitamin D levels were low; TSH normal; iPTH ordered with results pending
-Nephrology sent paraprotein workup for multiple myeloma
-Remains on IV fluids, current bag to be last
Plan
-Continue to trend BMP and AM ionized calcium
-Follow-up iPTH levels and SPEP/UPEP + ETHAN
-Plan for CT to assess for bone lesions
-To consider onclology consult for proteosome inhibitor when Dx certain
#Acute hypoxemic respiratory insufficiency
#Community-acquired pneumonia
-Chest x-ray with right-sided infiltrate concerning for pneumonia, leukocytosis present
-Has required low levels of oxygen here, does not wear oxygen at baseline
-Was started on IV ceftriaxone and doxycycline empirically
-Urine antigen testing negative for Legionella; viral panel negative
Plan
-Continue CTX and doxycycline
-Trend CBC and temperature curve
-Wean oxygen for SpO2 >90%
-Plan for cefdinir for oral regimen
#Elevated serum creatinine
-On arrival had serum creatinine 1.2; last labs in November with creatinine 0.9
-Creatinine clearance 41, suspect this may be CKD stage III rather than BLANCHE
-Creatinine level has been fairly stable here, between 1.0 and 1.2
-May be associated with hypercalcemia if MM present
-Monitor daily BMP, avoid nephrotoxin
#T2DM with hyperglycemia
-On arrival blood sugar was 377; Home medications include metformin and glipizide
-Metformin held; continued on glipizide and started on ISS with Accu-Cheks
-Blood sugars in the range of 130s to 200 for the most part since admission
-Continue with current regimen, BG goal 100-200, avoid hypoglycemia
#Hypertension
-Home medication includes losartan, bisoprolol, diltiazem
-No known history of hypertensive systemic disease
-BP currently elevated
-Ordered IV hydralazine as needed
#H/O DVT of RLE
-Home medications include warfarin with INR goal 2�3
-Will continue warfarin and monitor INR
DVT prophylaxis: Home warfarin
Diet: Carb controlled
CODE STATUS: full code
The patient's 2 sons were present and I provided them with updates. Stated that they would prefer daily updates if possible
Anticipated Discharge: > 48 hours
Subjective/Interval History
-
Date of Service: August 26, 2024
Seen and examined at the bedside. No acute events reported overnight. AFVSS on 2 L oxygen
Calcium improving following IV pamidronate, down to 13.5 on morning BMP with ionized calcium 2.6
Denies any acute complaints
Objective Data
-
Labs:
Laboratory Results
08/26/24
06:32
WBC 11.3 H
Hgb 12.2
Hct 39.6
Plt Count 142
PT 18.8 H
INR 1.54
Sodium 137
Potassium 3.8
Chloride 102
Carbon Dioxide 27
BUN 24 H
Creatinine 1.1 H
Glucose 190 H
Calcium 13.5 H*
Total Bilirubin 0.3
AST 50 H
ALT 22
Alkaline Phosphatase 107
Vital Signs:
Vital Signs
Temp Pulse Resp BP Pulse Ox
97.5 F 76 18 156/67 96
08/26/24 11:12 08/26/24 11:12 08/26/24 11:12 08/26/24 11:12 08/26/24 11:12
I&O
08/25/24 08/26/24 08/27/24
06:59 06:59 06:59
Intake Total 480 / 480
Balance 480 / 480
Review of Systems
-
History Source: Patient
All other systems: Reviewed and negative
Physical Exam
-
General: Well Developed, No Apparent Distress, Comfortable and Obese
HEENT: Normocephalic, Atraumatic, Moist Mucous Membranes and Anicteric; Negative Neck Masses or Thyromegaly
Respiratory: Rhonchi (Right lung base) and Non Labored Respirations; Negative Wheezes, Rales or Accessory Resp Muscle Use
Cardiac: Regular Rhythm and S1/S2; Negative Murmur, Rub or Gallop
GI: Soft, Nontender, Nondistended and Normal Bowel Sounds
Musculoskeletal: No Clubbing, No Cyanosis and No Edema
Skin: Warm and Dry; Negative Rash
Neuro: AO x 3 and Nonfocal/Grossly Intact
Psych: Calm
Data Reviewed
-
Labs: Labs Reviewed by me, Discussed with Patient and Discussed with Family
[2024-08-26 17:04] LABS: Glucose - Point of Care 153 mg/dl (70-99)
[2024-08-26] MEDS: COUMADIN 6 MG PO (18:04)
[2024-08-26 19:00] VITALS: BP 129/51
[2024-08-26 21:31] LABS: Glucose - Point of Care 175 mg/dl (70-99)
[2024-08-26 23:00] VITALS: BP 153/67
[2024-08-26] MEDS: ROCEPHIN 1000 MG IV (23:15)
[2024-08-26] MEDS: STERILE WATER FOR INJECTION 10 ML IV (23:15)
[2024-08-27 03:00] VITALS: BP 142/69
[2024-08-27 03:02] LABS: Vitamin D 1,25 Dihydroxy <5.0 pg/mL (19.9-79.3)
[2024-08-27] MEDS: DUONEB 3 ML INH (05:14)
--- NOTE | 2024-08-27 05:41 | PTCARENOTE ---
Pt. experiencing increased shortness of breath and wheezing O2 84% on 2L. Lung sounds coarse with crackles through out. Pt states she feels congested. Pt O2 increased to 4L nasal cannula. [employer] notified and evaluated pt at bedside. PRN breathing tx
given by RT. Pt. O2 now 93%, RR 20.
[2024-08-27 06:59] LABS: Ionized Calcium 1.57 mMOL/L (1.15-1.33)
--- NOTE | 2024-08-27 07:22 | PTCARENOTE ---
Lab informed this RN of critical ionized calcium, result=1.57. made aware.
[2024-08-27 07:23] LABS: % Basophils 0.3 % (0-2); % Eosinophils 1.3 % (0-6); % Immature Granulocytes 8.8 % (0-0.5); % Lymphocytes 12.4 % (20.5-51.1); % Monocytes 6.7 % (1.7-9.3); % Neutrophils 70.5 % (42.2-75.2); Absolute Eosinophils 0.2 10^3/uL (0-0.7); Absolute Immature Granulocytes 1.1 10^3/uL (0-0.05); Absolute Lymphocytes 1.5 10^3/uL (1.2-3.4); Absolute Monocytes 0.8 10^3/uL (0.1-0.6); Absolute Neutrophils 8.5 10^3/uL (1.4-6.5); Hematocrit 33.7 % (37.0-47.0); Hemoglobin 10.9 g/dL (12.0-16.0); Mean Corp Hgb Conc. 32.3 g/dL (33.0-37.0); Mean Corpuscular Hgb 30.3 pg (27.0-31.0); Mean Corpuscular Volume 93.6 fL (81.0-99.0); Mean Platelet Volume 10.4 fL (7.4-10.4); Nucleated Red Blood Cells % 0 %; Platelet Count 119 10^3/uL (130-400); Red Cell Dist. Width 13.4 % (11.5-14.5)
[2024-08-27 07:30] VITALS: BP 145/69
[2024-08-27 07:48] LABS: Blood Urea Nitrogen 29 mg/dl (7-17); Calcium 11.3 mg/dl (8.4-10.2); Carbon Dioxide 25 mmol/L (22-30); Chloride 102 mmol/L (98-107); Estimated Creatinine Clearance 45 ml/min; Glucose 131 mg/dl (70-99); Potassium 3.2 mmol/L (3.5-5.1); Sodium 135 mmol/L (135-145); eGFR 57.66
[2024-08-27 08:06] LABS: Glucose - Point of Care 128 mg/dl (70-99)
[2024-08-27] MEDS: CARDIZEM CD 240 MG PO (08:55)
[2024-08-27] MEDS: COZAAR 100 MG PO (08:55)
[2024-08-27] MEDS: KCL ELIXIR 40 MEQ PO ×2 (09:34→20:18)
[2024-08-27] MEDS: LIPITOR 20 MG PO (09:35)
[2024-08-27] MEDS: ZOLOFT 50 MG PO (09:35)
[2024-08-27] MEDS: MUCINEX 600 MG PO ×2 (09:35→20:18)
[2024-08-27] MEDS: ZEBETA 5 MG PO (09:35)
[2024-08-27] MEDS: VIBRAMYCIN 100 MG PO ×2 (09:35→20:18)
[2024-08-27] MEDS: NOVOLOG FLEXPEN-LOW RESISTANCE SC ×2 (09:36→13:48)
--- NOTE | 2024-08-27 10:31 | PN.CDI ---
CDI
- -
CDI:
Physician Documentation Request
Admit Date: 08/25/24 02:16
Dear Doctor Fran,
08/26 Hospitalist PN: 'Community-acquired pneumonia -Chest x-ray with right-sided infiltrate concerning for pneumonia, leukocytosis present'
Laboratory Tests
08/24/24 08/25/24
23:36 06:41
WBC 13.0 H 12.8 H
08/24/24
23:15 08/24/24
23:45 08/25/24
00:46
Pulse 126 123 124
08/24/24
23:15 08/24/24
23:43 08/25/24
00:00
Resp Rate 32 23 25
Please clarify which of the following most accurately describes the status of the patient's infection:
Sepsis, POA
- Systemic manifestations of infection, with 2 or more SIRS criteria which include:
- Fever >100.4 degrees F or hypothermia < 96.8 degrees F
- Leukocytosis - WBC > 12,000 or leukopenia - WBC < 4,000 or > 10% bands
- Tachycardia > 90 beats per minute
- Tachypnea - RR > 20 breaths per minute or PaCO2 , 32mmHg
Source: Merck Manual 2012
Localized Infection Only, Without Systemic Illness
- indicate the site/source, such as UTI, pneumonia etc.
Other
Use of terms such as suspected, likely, concern for, or probable (associated with a specific diagnosis that is being evaluated, monitored, or treated as if it exists) are acceptable and can be coded in the inpatient setting, when documented at the
time of discharge.
Thank you,
Angie Matute RN, BSN
CDI Specialist
Available via [employer] text
Please use your independent medical judgment in providing your response.
[2024-08-27 11:34] VITALS: BP 179/77
--- NOTE | 2024-08-27 12:55 | W.PN.HOSP.TC ---
Today's Communication/Plan
-
Follow-up iPTH, SPEP/UPEP/ETHAN, PTHrP
Order CT C/A/P
Trend BMP and ionized calcium levels
Assessment / Plan
Assessment / Plan
#Hypercalcemia
-Suspicion for malignancy such as multiple myeloma versus other occult neoplasm
-Presented with calcium of 15.5, s/p pamidronate, calcium down to 13.5 today
-Vitamin D levels were low; TSH normal; iPTH ordered with results pending
-Nephrology sent paraprotein workup for multiple myeloma
-Remains on IV fluids, current bag to be last
Plan
-Continue to trend BMP and AM ionized calcium
-Follow-up iPTH levels, SPEP/UPEP + ETHAN, PTHrP levels
-Order CT C/A/P without contrast to assess bones, other sources of neoplasm
-To consider onclology consult for proteosome inhibitor when Dx certain
#Acute hypoxemic respiratory insufficiency
#Community-acquired pneumonia
#Sepsis POA, now resolved
-Chest x-ray with right-sided infiltrate concerning for pneumonia, leukocytosis present
-Has required low levels of oxygen here, does not wear oxygen at baseline
-Was started on IV ceftriaxone and doxycycline empirically
-Urine antigen testing negative for Legionella; viral panel negative
Plan
-Continue CTX and doxycycline
-Trend CBC and temperature curve
-Wean oxygen for SpO2 >90%
-Plan for cefdinir for oral regimen
#Elevated serum creatinine
-On arrival had serum creatinine 1.2; last labs in November with creatinine 0.9
-Creatinine clearance 41, suspect this may be CKD stage III rather than BLANCHE
-Creatinine level has been fairly stable here, between 1.0 and 1.2
-May be associated with hypercalcemia if MM present
-Monitor daily BMP, avoid nephrotoxin
#T2DM with hyperglycemia
-On arrival blood sugar was 377; Home medications include metformin and glipizide
-Metformin held; continued on glipizide and started on ISS with Accu-Cheks
-Blood sugars in the range of 130s to 200 for the most part since admission
-Continue with current regimen, BG goal 100-200, avoid hypoglycemia
#Hypertension
-Home medication includes losartan, bisoprolol, diltiazem
-No known history of hypertensive systemic disease
-BP currently elevated
-Ordered IV hydralazine as needed
#H/O DVT of RLE
-Home medications include warfarin with INR goal 2�3
-Will continue warfarin and monitor INR
#Hypokalemia
-Likely nutritional, provided KCl syrup today
-Continue to trend BMP and replete as needed
DVT prophylaxis: Home warfarin
Diet: Carb controlled
CODE STATUS: full code
The patient's 2 sons (Tyson and Gilmar) were present and I provided them with updates. Stated that they would prefer daily updates if possible. Gilmar's phone number [phone], would like results of tests here prior to giving them to the patient
so that they can be present
Anticipated Discharge: > 48 hours
Subjective/Interval History
-
Date of Service: August 27, 2024
Seen and examined at the bedside. No acute events reported overnight. AFVSS this morning on 2 L O2
Calcium continues to improve following IV bisphosphonate. WBC count remains mildly elevated without significant change
Denies any acute complaints today. States she still has some weakness. Denies chest pain, dyspnea, fevers or chills, lightheadedness, palpitations, GI issues, urinary issues, bleeding or bruising, paresthesias or weakness
Objective Data
-
Labs:
Laboratory Results
08/27/24
06:34
WBC 12.0 H
Hgb 10.9 L
Hct 33.7 L
Plt Count 119 L
Sodium 135
Potassium 3.2 L
Chloride 102
Carbon Dioxide 25
BUN 29 H
Creatinine 1.0
Glucose 131 H
Calcium 11.3 H D
Vital Signs:
Vital Signs
Temp Pulse Resp BP Pulse Ox
98.1 F 69 16 179/77 98
08/27/24 11:34 08/27/24 11:34 08/27/24 11:34 08/27/24 11:34 08/27/24 11:34
I&O
08/26/24 08/27/24 08/28/24
06:59 06:59 06:59
Intake Total 480 / 480 957 / 957
Balance 480 / 480 957 / 957
Review of Systems
-
History Source: Patient
All other systems: Reviewed and negative
Physical Exam
-
General: Well Developed, No Apparent Distress, Comfortable and Obese
HEENT: Normocephalic, Atraumatic, Moist Mucous Membranes and Anicteric
Respiratory: Clear to Auscultation and Non Labored Respirations; Negative Wheezes, Rales or Rhonchi
Cardiac: Regular Rhythm, S1/S2 and Murmur; Negative Rub or Gallop
GI: Soft, Nontender, Nondistended and Normal Bowel Sounds
Musculoskeletal: No Clubbing, No Cyanosis and No Edema
Skin: Warm, Dry and Normal Turgor; Negative Rash or Jaundice
Neuro: AO x 3 and Nonfocal/Grossly Intact
Psych: Calm
Data Reviewed
-
CT Scan: Discussed with Patient and Discussed with Family
Labs: Labs Reviewed by me, Discussed with Patient and Discussed with Family
--- NOTE | 2024-08-27 13:28 | CM ---
Patient was not in room as she was getting a cat scan therefore placed a call to patient's sons to obtain information for assessment. Placed a call to Tyson however had to leave a voice mail. Placed a call to Gaurav who answered and stated that he
could provide information on behalf of patient. Patient lives alone in an apartment which is all one floor with no steps to enter. Both of her sons live about a mile away. Patient's son stated that patient is independent with her bathing, dressing,
all ADLs, and just started using a walker as she has been week. Patient's son stated that she does have challenges with toileting and can be incontinent of bowel and bladder. She is able to cook meals for herself, her sons do her laundry and
urban planning professor and she does have a woman who comes in 2x a month to clean her apartment. Patient does not drive, however her sons are available to do her shopping, take her to the store and appointments.
Patient's son denied any DME besides the walker. She does have personal emergency response system that she wears.
She has not had any VN services.
Patient has not been to a SNF.
Patient has a prescription plan and uses, [facility] in [place] for all of her medications.
Her PCP is, Lilain Carrera.
Patient's son feels that patient will need some short term rehab before she goes home and would like for her to go to [facility]. He was also [facility]able [facility].
Messaged Faraz in admissions to determine if she has bed availability at [facility]. Have not as of yet received return message.
Will send referrals to facilities above and await responses.
Plan: Case management will continue to follow and assist with discharge planning. SNF when stable.
[2024-08-27 13:40] LABS: Glucose - Point of Care 110 mg/dl (70-99)
--- NOTE | 2024-08-27 14:29 | W.PN.NEPH.PH ---
Today's Communication / Plan
-
Follow calcium
No IV fluids at this time
Assessment/Plan
-
IMP:
Hypercalcemia - Ca 15.5
Suspected Pneumonia
possible mild BLANCHE
DVT - h/o RLE DVT on coumadin
DM II
Primary HTN
Plan:
A/w cough and sob
Hypercalcemia-no clear etiology, not on james meds, suspect related to underlying lung malignancy per review of CT scan today
Calcium down to 11 point after pamidronate administered
checked PTH, vit D, paraprotein w/u pending
concern of PNA , BNP low -abx per primary
No IV fluids provided
BP are high, resumed home meds
labs in am
-
-
Date of Service: August 27, 2024
CC / HPI / ROS
-
Chief Complaint:
Hypercalcemia
History of Present Illness:
calcium down to 11.3
hemodynamically stable, BP high
creatinine down to 1
Review of Systems:
no chest pain
resting comfortably on NC O2
Labs
-
Labs:
WBC 12.0 10^3/uL (4.8-10.8) H 08/27/24 06:34
RBC 3.60 10^6/uL (4.20-5.40) L 08/27/24 06:34
Hgb 10.9 g/dL (12.0-16.0) L 08/27/24 06:34
Hct 33.7 % (37.0-47.0) L 08/27/24 06:34
Plt Count 119 10^3/uL (130-400) L 08/27/24 06:34
Sodium 135 mmol/L (135-145) 08/27/24 06:34
Potassium 3.2 mmol/L (3.5-5.1) L 08/27/24 06:34
Chloride 102 mmol/L (98-107) 08/27/24 06:34
Carbon Dioxide 25 mmol/L (22-30) 08/27/24 06:34
BUN 29 mg/dl (7-17) H 08/27/24 06:34
Creatinine 1.0 mg/dL (0.6-1.0) 08/27/24 06:34
eGFR 57.66 08/27/24 06:34
Glucose 131 mg/dl (70-99) H 08/27/24 06:34
Calcium 11.3 mg/dl (8.4-10.2) H D 08/27/24 06:34
Wzy-W-Swxfianbajq Pept 533 pg/ml 08/24/24 23:53
Albumin 3.8 g/dl (3.5-5.0) 08/26/24 06:32
Physical Exam
-
Vital Signs:
Vital Signs
Temp Pulse Resp BP Pulse Ox
98.1 F 69 16 179/77 98
08/27/24 11:34 08/27/24 11:34 08/27/24 11:34 08/27/24 11:34 08/27/24 11:34
Cardiovascular:: Regular rate and rhythm
Respiratory:: Bilateral: Coarse, Bilateral: Rhonchi and Bilateral: Wheeze
Lung Excursion:: Normal
Abdomen:: Nontender
Extremity Edema:: None: Bilateral:
Russo Catheter: No
[2024-08-27 14:51] VITALS: BP 138/57
--- NOTE | 2024-08-27 15:10 | CON.ONC ---
Impression
Impression
hypercalcemia of malignancy
metastatic lung cancer
Plan
Plan
s/p pamidronate, monitor calcium
consult pulmonary for bronch for diagnostic and therapeutic purposes
Will follow along and plan outpatient oncology f/u to review path, order add'l staging studies (PET, brain MRI), and consider options for treatment
Patient History
History of Present Illness
79 yo F w/ h/o DVT on warfarin, and prior smoker, presented to the ER with cough, chest discomfort, and leg weakness. Calcium was 15.2 at admission. Clinical picture was concerning for pneumonia, she was started on antibiotics and given pamidronate.
CT CAP done today shows likely obstructing mass in right lung w/ post-obstructive process, lymphadenopathy, small/mod right pleural effusion, and concern for mets to adrenal, liver, bones.
Past-Medical/Surgical History
PMH/PSH:
DVT - h/o RLE DVT on coumadin
DM II
Primary HTN
HLD
Past Surgical History: Gynecological (tubal ligation) and Other
Social History
Tobacco: Former Smoker
Alcohol: None
Living: Alone
Employment: Retired
Family History
Family History: Not Pertinent
Patient Medication
�Medication �Instructions �Recorded �Confirmed �Last Taken �Type
acetaminophen 325 mg tablet 650 mg PO Q4HPRN PRN back pain 08/25/24 08/25/24 08/19/24 History
(Tylenol)
atorvastatin 20 mg tablet 20 mg PO DAILY High Cholesterol 08/25/24 08/25/24 08/19/24 History
bisoprolol fumarate 5 mg tablet 5 mg PO DAILY Blood Pressure 08/25/24 08/25/24 08/19/24 History
chlorpheniramine-acetaminophen 2 1 tab PO DAILYPRN PRN cough 08/25/24 08/25/24 08/20/24 History
mg-325 mg tablet
diltiazem HCl 240 mg 240 mg PO DAILY Heart 08/25/24 08/25/24 08/19/24 History
capsule,extended release 24 hr Disease/Condition
guaifenesin 600 mg tablet, 600 mg PO BIDPRN PRN cough 08/25/24 08/25/24 08/20/24 History
extended release 12 hr (Mucinex)
losartan 100 mg tablet 100 mg PO DAILY Blood Pressure 08/25/24 08/25/24 08/19/24 History
metformin 500 mg tablet 500 mg PO BID Diabetes 08/25/24 08/25/24 08/19/24 History
pioglitazone 30 mg tablet 30 mg PO DAILY Diabetes 08/25/24 08/25/24 08/19/24 History
sertraline 50 mg tablet 50 mg PO DAILY Mental 08/25/24 08/25/24 08/19/24 History
Health/Anxiety
warfarin 5 mg tablet 9 mg PO DAILY Blood Clot 08/25/24 08/25/24 08/19/24 History
Prevention/Tx
Active Medications
Generic Name Dose Route Start Last Admin
Trade Name Freq PRN Reason Stop Dose Admin
Acetaminophen 650 mg 08/25/24 01:57 08/26/24 14:09
Acetaminophen 325 Mg Tablet PO 09/22/24 01:56 650 mg
Q6HPRN PRN Administration
mild pain/ fever>100.5F
Albuterol/Ipratropium 3 ml 08/25/24 03:39 08/27/24 05:14
Ipratropium 0.5/Albuterol 3 Mg (3 Ml Ampul) INH 3 ml
R Q4HPRN PRN Administration
shortness of breath/wheezing
Protocol
Atorvastatin Calcium 20 mg 08/26/24 08:00 08/27/24 09:35
Atorvastatin (Lipitor) 20 Mg Tablet PO 09/23/24 07:59 20 mg
DAILY JA Administration
Benzonatate 200 mg 08/25/24 11:06
Benzonatate 100 Mg Capsule PO 09/22/24 11:05
TIDPRN PRN
severe cough
Bisoprolol Fumarate 5 mg 08/25/24 11:15 08/27/24 09:35
Bisoprolol Fumarate (Zebeta) 5 Mg Tablet PO 09/22/24 11:14 5 mg
DAILY JA Administration
Ceftriaxone Sodium 1,000 mg 08/26/24 00:00 08/26/24 23:15
Ceftriaxone 1000 Mg / 10 Ml Vial IV 1,000 mg
Q24H JA Administration
Dextrose 12.5 grams 08/25/24 04:00
Dextrose 50% (0.5 Grams/Ml) 50 Ml Syringe IV 09/22/24 03:59
[id number] PRN
hypoglycemia
Protocol
Diltiazem HCl 240 mg 08/25/24 12:00 08/27/24 08:55
Diltiazem 240 Mg Extended Release (24 H) Capsule PO 09/22/24 11:59 240 mg
DAILY JA Administration
Doxycycline Hyclate 100 mg 08/25/24 20:00 08/27/24 09:35
Doxycycline 100 Mg Capsule PO 100 mg
Q12 JA Administration
Glipizide 2.5 mg 08/25/24 08:00 08/25/24 08:11
Glipizide 5 Mg Regular Release Tablet PO 09/22/24 07:59 2.5 mg
DAILY JA Administration
Glucagon 1 mg 08/25/24 04:00
Glucagon 1 Mg Vial IM 09/22/24 03:59
PRN PRN
hypoglycemia - no IV access
Protocol
Guaifenesin 600 mg 08/25/24 08:00 08/27/24 09:35
Guaifenesin 600 Mg Extended Release Tablet PO 09/22/24 07:59 600 mg
Q12 JA Administration
Hydralazine HCl 10 mg 08/26/24 15:48
Hydralazine 20 Mg/Ml Vial IV 09/23/24 15:47
Q6HPRN PRN
SBP > 160
Insulin Aspart 0 units 08/25/24 07:30 08/27/24 13:48
Insulin Aspart Low Resistance 300 Units/3 Ml Pen.Injctr SC 09/22/24 07:29 Not Given
AC JA
Protocol
Losartan Potassium 100 mg 08/25/24 12:00 08/27/24 08:55
Losartan 100 Mg Tablet PO 09/22/24 11:59 100 mg
DAILY JA Administration
Potassium Chloride 40 meq 08/27/24 09:00 08/27/24 09:34
Potassium Chloride 10% Oral Solution (40 Meq/30 Ml) Cup PO 08/28/24 01:00 40 meq
BID JA Administration
Sertraline HCl 50 mg 08/26/24 08:00 08/27/24 09:35
Sertraline 50 Mg Tablet PO 09/23/24 07:59 50 mg
DAILY JA Administration
Sodium Chloride 0 flush 08/25/24 02:00 08/25/24 02:10
Sodium Chloride 0.9% (Flush) Syringe IV 09/22/24 01:59 1 flush
PER PROTOCOL JA Administration
Sterile Water 10 ml 08/26/24 00:00 08/26/24 23:15
Sterile Water For Injection 10 Ml Vial IV 09/23/24 00:00 10 ml
Q24H JA Administration
Warfarin Sodium 6 mg 08/25/24 18:00 08/26/24 18:04
Warfarin 3 Mg Tablet PO 08/30/24 17:59 6 mg
QPM AJ Administration
Review of Systems
-
All Other Systems: Not reviewed unless documented
Physical Exam
-
General: Well Developed, Well Nourished, No Apparent Distress and Comfortable
Cardiology: Normal Sinus Rhythm
Pulmonary: Rhonchi
Neurology: Non Focal
Skin: Warm and Dry
Psych: Calm and Intact Judgement/Insight
Labs
Lab Results
WBC 12.0 10^3/uL (4.8-10.8) H 08/27/24 06:34
RBC 3.60 10^6/uL (4.20-5.40) L 08/27/24 06:34
Hgb 10.9 g/dL (12.0-16.0) L 08/27/24 06:34
Hct 33.7 % (37.0-47.0) L 08/27/24 06:34
MCV 93.6 fL (81.0-99.0) 08/27/24 06:34
MCH 30.3 pg (27.0-31.0) 08/27/24 06:34
MCHC 32.3 g/dL (33.0-37.0) L 08/27/24 06:34
RDW 13.4 % (11.5-14.5) 08/27/24 06:34
Plt Count 119 10^3/uL (130-400) L 08/27/24 06:34
MPV 10.4 fL (7.4-10.4) 08/27/24 06:34
Abs Immat Gran (auto) 1.1 10^3/uL (0-0.05) H 08/27/24 06:34
Absolute Neuts (auto) 8.5 10^3/uL (1.4-6.5) H 08/27/24 06:34
Absolute Lymphs (auto) 1.5 10^3/uL (1.2-3.4) 08/27/24 06:34
Absolute Monos (auto) 0.8 10^3/uL (0.1-0.6) H 08/27/24 06:34
Absolute Eos (auto) 0.2 10^3/uL (0-0.7) 08/27/24 06:34
Absolute Basos (auto) 0.0 10^3/uL (0-0.2) 08/27/24 06:34
Immature Gran % 8.8 % (0-0.5) H 08/27/24 06:34
Neutrophils % 70.5 % (42.2-75.2) 08/27/24 06:34
Lymphocytes % 12.4 % (20.5-51.1) L 08/27/24 06:34
Monocytes % 6.7 % (1.7-9.3) 08/27/24 06:34
Eosinophils % 1.3 % (0-6) 08/27/24 06:34
Basophils % 0.3 % (0-2) 08/27/24 06:34
Creatinine 1.0 mg/dL (0.6-1.0) 08/27/24 06:34
Vital Signs
Vital Signs
Temp Pulse Resp BP Pulse Ox
98.7 F 63 16 138/57 98
08/27/24 14:51 08/27/24 14:51 08/27/24 14:51 08/27/24 14:51 08/27/24 14:51
--- NOTE | 2024-08-27 15:29 | CON.PUL ---
Consultation
Consultation Request
Date/Time Consultation Requested: 08/27/24
Date/Time Consultation Performed: 08/27/24
Performing Provider: Tashia
Reason for Consultation: Abnormal CT
Medical History
-
History of Present Illness:
Patient is a 79-year-old female with previous history of diabetes, hyperlipidemia, right lower extremity DVT on Coumadin presenting to ER with generalized weakness, cough complaints, left-sided flank pain over the past week. She had alerted EMS
today because of feeling of weakness, could not get up from commode and felt her legs give way. She denies any shortness of breath with this episode but was noted to be hypoxemic on arrival to ER. She was hypertensive with systolic BP of 200 and
tachycardia of 123. Serum calcium was very elevated at 15.2 which prompted malignancy w/u. Chest x-ray demonstrated possible right basilar disease, follow-up CT abdomen pelvis indicating postobstructive mass versus pneumonia at right base.
She was a former smoker, 1 PPD started at age 21 and quit 24 years ago (30+ pack years). She denies family history of lung disease or cancers.
She has never seen a forest fire management officer nor had lung cancer screening. Emphysema is noted on her imaging as well. No prior PFTs for review.
Past Medical History
Past Medical History: Other (see list below)
Social History
Tobacco: Former Smoker
Alcohol: None
Drug: None
Family History
Family History: Reviewed & Not Pertinent
Allergies / Home Medications
Allergies
Allergy/AdvReac Type Severity Reaction Status Date / Time
latex Allergy Mild Rash Verified 08/24/24 23:14
Penicillins Allergy Rash Verified 08/24/24 23:14
Home Medications
�Medication �Instructions �Recorded �Confirmed �Last Taken �Type
acetaminophen 325 mg tablet 650 mg PO Q4HPRN PRN back pain 08/25/24 08/25/24 08/19/24 History
(Tylenol)
atorvastatin 20 mg tablet 20 mg PO DAILY High Cholesterol 08/25/24 08/25/24 08/19/24 History
bisoprolol fumarate 5 mg tablet 5 mg PO DAILY Blood Pressure 08/25/24 08/25/24 08/19/24 History
chlorpheniramine-acetaminophen 2 1 tab PO DAILYPRN PRN cough 08/25/24 08/25/24 08/20/24 History
mg-325 mg tablet
diltiazem HCl 240 mg 240 mg PO DAILY Heart 08/25/24 08/25/24 08/19/24 History
capsule,extended release 24 hr Disease/Condition
guaifenesin 600 mg tablet, 600 mg PO BIDPRN PRN cough 08/25/24 08/25/24 08/20/24 History
extended release 12 hr (Mucinex)
losartan 100 mg tablet 100 mg PO DAILY Blood Pressure 08/25/24 08/25/24 08/19/24 History
metformin 500 mg tablet 500 mg PO BID Diabetes 08/25/24 08/25/24 08/19/24 History
pioglitazone 30 mg tablet 30 mg PO DAILY Diabetes 08/25/24 08/25/24 08/19/24 History
sertraline 50 mg tablet 50 mg PO DAILY Mental 08/25/24 08/25/24 08/19/24 History
Health/Anxiety
warfarin 5 mg tablet 9 mg PO DAILY Blood Clot 08/25/24 08/25/24 08/19/24 History
Prevention/Tx
Review of Systems
-
History Source: Patient
All other systems: Negative unless noted
Vitals / Labs / Diagnostic Testing
Vital Signs
Temp Pulse Resp BP Pulse Ox
98.7 F 63 16 138/57 98
08/27/24 14:51 08/27/24 14:51 08/27/24 14:51 08/27/24 14:51 08/27/24 14:51
Lab Data
08/27/24 06:34
08/27/24 06:34
Microbiology
08/25/24 18:34 Nose MRSA Screen - Final
No Methicillin Resistant Staphylococcus aureus isolated.
08/25/24 12:01 Urine Urine Culture - Final
No Significant Growth
08/25/24 12:01 Urine Legionella Urinary Antigen - Final
Negative for Legionella pneumophila Serogroup 1 antigen.
A negative result does not rule out the possiblity of
Legionella infection due to other serogroups or species of
Legionella. Clinical correlation is recommended.
08/24/24 23:53 Nasal Swab Influenza Types A & B (NELL) - Final
Negative for Influenza A & B, NAAT
Negative results must be combined with clinical observations
and patient history.
Nucleic Acid Amplification test (NAAT)performed on the
[employer] platform.
Diagnostic Testing:
Physical Exam
-
HEENT: Normocephalic, Anicteric and Moist Mucous Membranes
Cardiovascular: S1/S2 and Regular Rhythm
Respiratory: Clear (on L), Rales (R base), Non-Labored Respirations and Other
GI: Soft, Non Distended and Non Tender
Neurology: Awake, Alert, Oriented and No Motor Deficits
Skin: Warm, Dry and Good Color
General: Comfortable and Other (NAD)
Assessment
-
Patient is a 79-year-old female with previous history of diabetes, hyperlipidemia, right lower extremity DVT on Coumadin presenting to ER with generalized weakness, cough complaints, left-sided flank pain over the past week. She had alerted EMS
today because of feeling of weakness, could not get up from commode and felt her legs give way. She denies any shortness of breath with this episode but was noted to be hypoxemic on arrival to ER. She was hypertensive with systolic BP of 200 and
tachycardia of 123. Serum calcium was very elevated at 15.2 which prompted malignancy w/u. Chest x-ray demonstrated possible right basilar disease, follow-up CT abdomen pelvis indicating postobstructive mass versus pneumonia at right base. We are
consulted for eval.
Generalized weakness
Nonproductive cough
Abnormal CT, right sided postobstructive pneumonia versus mass
Compressive atelectasis
Hypertensive urgency
Tachycardia
Hypercalcemia
Suspect COPD
Emphysema noted on CT
Conditions present prior to admission
Varicose veins
Non-pressure chronic ulcer of R ankle
Diabetes
Hyperlipidemia
Right lower extremity DVT on Coumadin
Former smoker, 30 pack years, quit 24 years ago
Obesity BMI 34
Plan
She was notably low in her O2 in admission, but lázaro at 91%--she was placed on 2L NC
Not known to be on home O2, this could likely be weaned off
Home O2 evaluation eventually
Prior history of lung disease is NOT noted though suspected --
She was a former smoker, 1 PPD started at age 21 and quit 24 years ago (30+ pack years).
She denies family history of lung disease or cancers.
She has never seen a forest fire management officer nor had lung cancer screening.
Emphysema is noted on her imaging as well. No prior PFTs for review.
Imaging reviewed, new RLL consolidation, no prior recent imaging for review
CXR 2015 with no acute findings
Suspect patient has possible postobs PNA vs mass--she is high risk
We discussed evaluation via bronchoscopy but could be done as OP --preoperative testing with PFTs and ECHO can be done
She was agreeable to this
Weakness noted, would obtain PT consult/eval
HTN urgency noted, no known history of cardiac disease
Has risk factors
No ECHO for review, will obtain new study
Renal following for hypercalcemia
Could be related to underlying malignancy, trending down with IVFs
Smoking history noted--quit 24 years ago
Smoking cessation continued
Weight loss measures recommended
Obesity noted, BMI 34
Risk factors assessed for underlying sleep disordered breathing also noted, recommend outpatient PSG/sleep evaluation
Will need outpatient pulmonary evaluation in our office for PFTs and 6MWT
Reviewed with patient
We will follow
Diagnostic Data
Chest X-Ray: 08/25/24- New findings concerning for right-sided pneumonia.
09/21/15- No active disease.
CT Scan: CAP 08/27/24- Soft tissue fullness in the right hilar and infrahilar region with abrupt cut off of the bronchus intermedius. Findings likely represent a combination of infected neoplasm and postobstructive atelectasis within the right
middle and right lower lobe. Lymphadenopathy within the chest, which is likely neoplastic lymphadenopathy. Small to moderate right pleural effusion.
Patchy parenchymal opacity within the right upper lobe of the lung, which is likely patchy pneumonia. Patchy parenchymal opacity within the posterior aspect of the left lower lobe of the lung, most likely atelectasis, although pneumonia is also
possible. Minimal left pleural effusion. Changes of emphysema in the visualized upper lungs. Cholelithiasis. Mild fatty infiltration liver. Low-density lesion within the anterior left lobe of the liver, nonspecific, but concerning for hepatic
metastatic disease. 3 cm mass arising in the right adrenal gland, and CT features are most suggestive of adenoma or myelolipoma. However, given the rest of the findings on this examination, metastatic disease not completely excluded. Lucent lesions
within the skeleton as described, and raises concern for bony metastatic disease, especially lesion within C6. As warranted, further evaluation with nuclear medicine bone scan could be considered. As warranted, further evaluation with CT examination
with intravenous contrast may be helpful.
Echo:
PFT's:
Reports and relevant images were personally reviewed.
Total time spent on this consultation __75__ minutes which includes review of history, physical exam, medications, laboratory data, personal review of imaging, extensive review of outpatient records, discussion with care team and respiratory therapy.
[2024-08-27 16:13] LABS: Intact PTH 7.8 pg/ml (13.6-85.8)
[2024-08-27 16:35] LABS: Glucose - Point of Care 235 mg/dl (70-99)
[2024-08-27] MEDS: NOVOLOG FLEXPEN-LOW RESISTANCE 2 UNITS SC (17:58)
[2024-08-27] MEDS: COUMADIN 6 MG PO (17:58)
[2024-08-27 22:07] LABS: Glucose - Point of Care 227 mg/dl (70-99)
[2024-08-27 23:09] VITALS: BP 150/60
[2024-08-28] MEDS: STERILE WATER FOR INJECTION 10 ML IV ×2 (00:55→23:40)
[2024-08-28] MEDS: ROCEPHIN 1000 MG IV ×2 (00:56→23:40)
[2024-08-28] MEDS: DUONEB 3 ML INH (05:11)
[2024-08-28 06:29] VITALS: BMI 35.2
[2024-08-28 07:00] VITALS: BP 151/62
[2024-08-28 07:23] LABS: Glucose - Point of Care 180 mg/dl (70-99)
[2024-08-28 07:53] LABS: Ionized Calcium 1.29 mMOL/L (1.15-1.33)
[2024-08-28 08:12] LABS: Hemoglobin 10.8 g/dL (12.0-16.0); Mean Corp Hgb Conc. 31.8 g/dL (33.0-37.0); Mean Corpuscular Hgb 29.8 pg (27.0-31.0); Mean Corpuscular Volume 93.7 fL (81.0-99.0); Mean Platelet Volume 10.9 fL (7.4-10.4); Platelet Count 111 10^3/uL (130-400); Red Blood Cell Count 3.63 10^6/uL (4.20-5.40); Red Cell Dist. Width 13.6 % (11.5-14.5); White Blood Cell Count 13.2 10^3/uL (4.8-10.8)
[2024-08-28 08:31] VITALS: BP 150/65; PULSE 69; O2SAT 90
[2024-08-28] MEDS: NOVOLOG FLEXPEN-LOW RESISTANCE 1 UNITS SC (08:36)
[2024-08-28 08:37] LABS: Blood Urea Nitrogen 35 mg/dl (7-17); Calcium 9.5 mg/dl (8.4-10.2); Carbon Dioxide 22 mmol/L (22-30); Chloride 104 mmol/L (98-107); Estimated Creatinine Clearance 51 ml/min; Glucose 148 mg/dl (70-99); Potassium 3.6 mmol/L (3.5-5.1); Sodium 136 mmol/L (135-145); eGFR > 60.00
[2024-08-28] MEDS: VIBRAMYCIN 100 MG PO ×2 (08:37→21:05)
[2024-08-28] MEDS: COZAAR 100 MG PO (08:37)
[2024-08-28] MEDS: MUCINEX 600 MG PO ×2 (08:37→21:05)
[2024-08-28] MEDS: CARDIZEM CD 240 MG PO (08:38)
[2024-08-28] MEDS: LIPITOR 20 MG PO (08:39)
[2024-08-28] MEDS: ZEBETA 5 MG PO (08:39)
[2024-08-28] MEDS: ZOLOFT 50 MG PO (08:39)
[2024-08-28 08:55] LABS: % Basophils 0.5 % (0-2); % Eosinophils 1.3 % (0-6); % Immature Granulocytes 8.7 % (0-0.5); % Monocytes 6.7 % (1.7-9.3); % Neutrophils 72.8 % (42.2-75.2); Absolute Basophils 0.1 10^3/uL (0-0.2); Absolute Eosinophils 0.2 10^3/uL (0-0.7); Absolute Immature Granulocytes 1.2 10^3/uL (0-0.05); Absolute Lymphocytes 1.3 10^3/uL (1.2-3.4); Absolute Monocytes 0.9 10^3/uL (0.1-0.6); Absolute Neutrophils 9.6 10^3/uL (1.4-6.5); Nucleated Red Blood Cells % 0 %
--- NOTE | 2024-08-28 10:43 | CM ---
Addendum entered by INGRID Rivers 08/28/24 15:26:
Patient's son called to relay that he heard from attending that patient may be cleared for discharge on Monday. Placed a call to [facility]. Left message to update that patient may need bed for Monday.
Patient's son called. Spoke with him to update that if patient is stable for discharge on Monday, will call Valerie in the morning. Patient's son stated that he is going to call the facility to talk to admissions and a financial person to answer
some questions he has about patient's Medicare benefit.
Addendum entered by INGRID Rivers 08/28/24 13:02:
Received call from patient's son, Gaurav who is agreeable to [facility] when patient is medically stable.
Original Note:
Received call from Faraz in admissions at [facility] who stated that she will most likely be able to accept patient pending the day of discharge. Will send updated referral. Faraz stated that she will call patient's son Gaurav to talk to him and
get further information.
Plan: Case management will continue to follow and assist with discharge planning. transfer to SNF upon medical clearance.
--- NOTE | 2024-08-28 10:48 | W.PN.PUL3 ---
Today's Communication / Plan
-
Had extensive discussion case with Son (Gaurav) who is agreeable to follow up (with potential bronch) as OP
I do feel she would benefit from pre-operative w/u prior to undergoing procedure, they are not sure she can handle this from a practical place (chemo, multiple visits, rehab)
Son requested inpatient consult by cards as well, discussed with care team
Otherwise, family is agreeable to discharge to SNF and we will continue pre-op appts/further discussions in our office
Assessment
-
Patient is a 79-year-old female with previous history of diabetes, hyperlipidemia, right lower extremity DVT on Coumadin presenting to ER with generalized weakness, cough complaints, left-sided flank pain over the past week. She had alerted EMS
today because of feeling of weakness, could not get up from commode and felt her legs give way. She denies any shortness of breath with this episode but was noted to be hypoxemic on arrival to ER. She was hypertensive with systolic BP of 200 and
tachycardia of 123. Serum calcium was very elevated at 15.2 which prompted malignancy w/u. Chest x-ray demonstrated possible right basilar disease, follow-up CT abdomen pelvis indicating postobstructive mass versus pneumonia at right base. We are
consulted for eval.
Generalized weakness
Nonproductive cough
Abnormal CT, right sided postobstructive pneumonia versus mass
Suspect widely metastatic disease based on CT (liver, bone, adrenal)
Compressive atelectasis
Hypertensive urgency
Tachycardia
Hypercalcemia
Suspect COPD
Emphysema noted on CT
Conditions present prior to admission
Varicose veins
Non-pressure chronic ulcer of R ankle
Diabetes
Hyperlipidemia
Right lower extremity DVT on Coumadin
Former smoker, 30 pack years, quit 24 years ago
Obesity BMI 34
Plan
She was notably low in her O2 in admission, but lázaro at 91%--she was placed on 2L NC
Not known to be on home O2, this could likely be weaned off
Home O2 evaluation eventually
Prior history of lung disease is NOT noted though suspected --
She was a former smoker, 1 PPD started at age 21 and quit 24 years ago (30+ pack years).
She denies family history of lung disease or cancers.
She has never seen a pattern fitter nor had lung cancer screening.
Emphysema is noted on her imaging as well. No prior PFTs for review.
Imaging reviewed, new RLL consolidation, no prior recent imaging for review
CXR 2016 with no acute findings
Suspect patient has possible postobs PNA vs mass--she is high risk
We discussed evaluation via bronchoscopy but could be done as OP --preoperative testing with PFTs and ECHO can be done
She was agreeable to this
Weakness noted, would obtain PT consult/eval
Likely d/c planning to SNF
HTN urgency noted, no known history of cardiac disease
Has risk factors
No ECHO for review, will obtain new study--reviewed/stable
May need OP referral to [facility] for preop eval, son has requested inpatient consult
Renal following for hypercalcemia
Could be related to underlying malignancy, trending down with IVFs
Smoking history noted--quit 24 years ago
Smoking cessation continued
Weight loss measures recommended
Obesity noted, BMI 34
Risk factors assessed for underlying sleep disordered breathing also noted, recommend outpatient PSG/sleep evaluation
Will need outpatient pulmonary evaluation in our office for PFTs and 6MWT
Reviewed with patient and Son (Gaurav, who is POA) -- he is not sure she has the functional capacity to endure treatment and multiple visits
I explained the expectations with this type of diagnosis
They will discuss with patient
Discharge planning per team to SNF
Further management to continue as OP
Diagnostic Data
Chest X-Ray: 08/25/24- New findings concerning for right-sided pneumonia.
09/21/15- No active disease.
CT Scan: CAP 08/27/24- Soft tissue fullness in the right hilar and infrahilar region with abrupt cut off of the bronchus intermedius. Findings likely represent a combination of infected neoplasm and postobstructive atelectasis within the right
middle and right lower lobe. Lymphadenopathy within the chest, which is likely neoplastic lymphadenopathy. Small to moderate right pleural effusion.
Patchy parenchymal opacity within the right upper lobe of the lung, which is likely patchy pneumonia. Patchy parenchymal opacity within the posterior aspect of the left lower lobe of the lung, most likely atelectasis, although pneumonia is also
possible. Minimal left pleural effusion. Changes of emphysema in the visualized upper lungs. Cholelithiasis. Mild fatty infiltration liver. Low-density lesion within the anterior left lobe of the liver, nonspecific, but concerning for hepatic
metastatic disease. 3 cm mass arising in the right adrenal gland, and CT features are most suggestive of adenoma or myelolipoma. However, given the rest of the findings on this examination, metastatic disease not completely excluded. Lucent lesions
within the skeleton as described, and raises concern for bony metastatic disease, especially lesion within C6. As warranted, further evaluation with nuclear medicine bone scan could be considered. As warranted, further evaluation with CT examination
with intravenous contrast may be helpful.
Echo:
PFT's:
Reports and relevant images were personally reviewed.
Total time spent on this encounter __61__ minutes which includes review of history, physical exam, medications, laboratory data, personal review of imaging, extensive review of outpatient records, discussion with care team and respiratory therapy.
Subjective Data
-
Date of Service:
Date of Service: August 28, 2024
Chief Complaint: Pulmonary Follow Up
Subjective:
No issues overnight, feels weak but no new complaints
Stable
Objective Data
Data Reviewed
Vital Signs / I&O / Oxygen:
Vital Signs
Temp Pulse Resp BP Pulse Ox
97.8 F 69 17 151/62 92
08/28/24 07:00 08/28/24 08:37 08/28/24 07:00 08/28/24 08:37 08/28/24 07:00
Intake and Output
12/10/24 12/11/24 12/12/24
06:59 06:59 06:59
Intake Total 957 / 957 960 / 960
Balance 957 / 957 960 / 960
SaO2 92
Nasal Cannula flow liters per 2
minute
Physical Exam
General: Comfortable and Other (NAD)
HEENT: Normocephalic, Anicteric and Moist Mucous Membranes
Cardiovascular: S1-S2 and Regular Rhythm
Respiratory: Clear and Non-Labored Respirations
GI: Soft, Non Distended and Non Tender
Neurology: Awake, Alert, Oriented and No Motor Deficits
Skin: Warm, Dry and Good Color
Labs/Micro/Reports
Lab Data
08/28/24 07:31
08/28/24 07:31
Microbiology
08/25/24 18:34 Nose MRSA Screen - Final
No Methicillin Resistant Staphylococcus aureus isolated.
08/25/24 12:01 Urine Urine Culture - Final
No Significant Growth
08/25/24 12:01 Urine Legionella Urinary Antigen - Final
Negative for Legionella pneumophila Serogroup 1 antigen.
A negative result does not rule out the possiblity of
Legionella infection due to other serogroups or species of
Legionella. Clinical correlation is recommended.
[2024-08-28 10:58] LABS: Protein/creatinine Ratio 0.3; Urine Protein 21 mg/dl
[2024-08-28 11:35] LABS: Glucose - Point of Care 255 mg/dl (70-99)
[2024-08-28] MEDS: NOVOLOG FLEXPEN-LOW RESISTANCE 3 UNITS SC (11:38)
--- NOTE | 2024-08-28 12:49 | W.PN.NEPH.PH ---
Today's Communication / Plan
-
follow BMP
Assessment/Plan
-
IMP:
Hypercalcemia - Ca 15.5
Suspected Pneumonia
possible mild BLANCHE
DVT - h/o RLE DVT on coumadin
DM II
Primary HTN
Plan:
malignancy w/u
follow BMP
await PTHrP
no IVF
-
-
Date of Service: August 28, 2024
CC / HPI / ROS
-
Chief Complaint:
Hypercalcemia
History of Present Illness:
calcium down to 9.5
hemodynamically stable, BP high
creatinine down to 0.9
Review of Systems:
no chest pain
resting comfortably on NC O2
Labs
-
Labs:
WBC 13.2 10^3/uL (4.8-10.8) H 08/28/24 07:31
RBC 3.63 10^6/uL (4.20-5.40) L 08/28/24 07:31
Hgb 10.8 g/dL (12.0-16.0) L 08/28/24 07:31
Hct 34.0 % (37.0-47.0) L 08/28/24 07:31
Plt Count 111 10^3/uL (130-400) L 08/28/24 07:31
Sodium 136 mmol/L (135-145) 08/28/24 07:31
Potassium 3.6 mmol/L (3.5-5.1) 08/28/24 07:31
Chloride 104 mmol/L (98-107) 08/28/24 07:31
Carbon Dioxide 22 mmol/L (22-30) 08/28/24 07:31
BUN 35 mg/dl (7-17) H 08/28/24 07:31
Creatinine 0.9 mg/dL (0.6-1.0) 12/11/24 07:31
eGFR > 60.00 08/28/24 07:31
Glucose 148 mg/dl (70-99) H 08/28/24 07:31
Calcium 9.5 mg/dl (8.4-10.2) D 08/28/24 07:31
Tcx-Z-Snewtiudktp Pept 533 pg/ml 08/24/24 23:53
Albumin 3.8 g/dl (3.5-5.0) 08/26/24 06:32
Physical Exam
-
Vital Signs:
Vital Signs
Temp Pulse Resp BP Pulse Ox
97.8 F 69 17 151/62 92
08/28/24 07:00 08/28/24 08:37 08/28/24 07:00 08/28/24 08:37 08/28/24 07:00
Cardiovascular:: Regular rate and rhythm
Respiratory:: Bilateral: CTA
Lung Excursion:: Normal
Abdomen:: Nontender and Soft
Bowel Sounds:: Normal
Extremity Edema:: None: Bilateral:
--- NOTE | 2024-08-28 13:23 | W.PN.HOSP.TC ---
Today's Communication/Plan
-
Plan for bronchoscopy with biopsy
Continue antibiotics and wean O2
Plan for home O2 eval
Trend BMP
Assessment / Plan
Assessment / Plan
#Acute hypoxemic respiratory insufficiency
#Community-acquired pneumonia
#Sepsis POA, now resolved
-Chest x-ray with right-sided infiltrate concerning for pneumonia, leukocytosis present
-Has required low levels of oxygen here, does not wear oxygen at baseline
-Was started on IV ceftriaxone and doxycycline empirically
-Urine antigen testing negative for Legionella; viral panel negative
-CT C/A/P showed signs of pneumonia superimposed on lung malignancy
Plan
-Continue antibiotics, plan for 7 days
-Trend CBC and temperature curve
-Wean oxygen for SpO2 >90%
-Plan for cefdinir for oral regimen
-Home oxygen eval prior to DC
#Metastatic lung cancer
-CT C/A/P without contrast showed likely bronchogenic carcinoma the right lung, adrenal mass, C6 bone lesion
-Patient does have previous smoking history despite stopping 24 years ago, smoked as well
-Pulmonology and oncology following, planning for bronchoscopy with biopsy and tissue diagnosis
-Will need formal staging with PET/CT, possible brain MRI with and without contrast
-Will need to have consideration for PD-1 testing if non-small cell lung cancer noted
#Hypercalcemia
-Very likely secondary to metastatic lung cancer, unclear histopathology at this time
-Vitamin D levels were low; TSH normal; iPTH ordered with results pending
-S/p pamidronate; nephrology sent paraprotein workup for multiple myeloma
-Follow-up iPTH levels, SPEP/UPEP + ETHAN, PTHrP levels
-Calcium levels normalized, continue to monitor BMP
#Elevated serum creatinine
-On arrival had serum creatinine 1.2; last labs in November with creatinine 0.9
-Creatinine clearance 41, suspect this may be CKD stage III rather than BLANCHE
-Creatinine level has been fairly stable here, between 1.0 and 1.2
-May be associated with hypercalcemia if MM present
-Monitor daily BMP, avoid nephrotoxin
#T2DM with hyperglycemia
-On arrival blood sugar was 377; Home medications include metformin and glipizide
-Metformin held; continued on glipizide and started on ISS with Accu-Cheks
-Blood sugars in the range of 130s to 200 for the most part since admission
-Continue with current regimen, BG goal 100-200, avoid hypoglycemia
#Hypertension
-Home medication includes losartan, bisoprolol, diltiazem
-No known history of hypertensive systemic disease
-BP currently elevated
-Ordered IV hydralazine as needed
#H/O DVT of RLE
-Home medications include warfarin with INR goal 2�3
-Will continue warfarin and monitor INR
#Hypokalemia
-Likely nutritional, provided KCl syrup today
-Continue to trend BMP and replete as needed
DVT prophylaxis: Home warfarin
Diet: Carb controlled
CODE STATUS: full code
The patient's 2 sons (Tyson and Gilmar) were present and I provided them with updates. Stated that they would prefer daily updates if possible. Gilmar's phone number [phone], would like results of tests here prior to giving them to the patient
so that they can be present
Anticipated Discharge: 24 - 48 hours
Subjective/Interval History
-
Date of Service: August 28, 2024
Seen and examined at bedside. No acute events report overnight. AFVSS this morning.
Calcium continue to improve following bisphosphonate therapy
Denies acute complaints today
Objective Data
-
Labs:
Laboratory Results
08/28/24
07:31
WBC 13.2 H
Hgb 10.8 L
Hct 34.0 L
Plt Count 111 L
Sodium 136
Potassium 3.6
Chloride 104
Carbon Dioxide 22
BUN 35 H
Creatinine 0.9
Glucose 148 H
Calcium 9.5 D
Vital Signs:
Vital Signs
Temp Pulse Resp BP Pulse Ox
97.8 F 69 17 151/62 92
08/28/24 07:00 08/28/24 08:37 08/28/24 07:00 08/28/24 08:37 08/28/24 07:00
I&O
08/27/24 08/28/24 08/29/24
06:59 06:59 06:59
Intake Total 957 / 957 960 / 960
Balance 957 / 957 960 / 960
Review of Systems
-
History Source: Patient
All other systems: Reviewed and negative
Physical Exam
-
General: Well Developed, No Apparent Distress, Comfortable and Obese
HEENT: Normocephalic, Atraumatic, Moist Mucous Membranes and Anicteric
Respiratory: Clear to Auscultation and Non Labored Respirations
Cardiac: Regular Rhythm and S1/S2; Negative Murmur, Rub or Gallop
GI: Soft, Nontender, Nondistended and Normal Bowel Sounds
Musculoskeletal: No Clubbing, No Cyanosis and No Edema
Skin: Warm, Dry and Normal Turgor; Negative Rash
Neuro: AO x 3 and Nonfocal/Grossly Intact
Psych: Calm
Data Reviewed
-
Labs: Labs Reviewed by me, Discussed with Patient and Discussed with Family
[2024-08-28] MEDS: TYLENOL 650 MG PO ×2 (14:40→21:15)
[2024-08-28 15:17] VITALS: BP 136/54
--- NOTE | 2024-08-28 15:42 | W.PN.UPDATE ---
Update Note
Progress Note Update
I received a tiger text from RN that pt family requested a phone call for updates. I called Gaurav as requested, no answer so I LMOM to return my call at his convenience and that I will be rounding again in the morning so can provide updates at that
time as well.
[2024-08-28 16:24] LABS: Glucose - Point of Care 224 mg/dl (70-99)
[2024-08-28 17:00] VITALS: BP 129/55; BP 153/63; PULSE 63; O2SAT 98
[2024-08-28] MEDS: COUMADIN 6 MG PO (17:01)
[2024-08-28] MEDS: NOVOLOG FLEXPEN-LOW RESISTANCE 2 UNITS SC (17:01)
[2024-08-28 21:27] LABS: Glucose - Point of Care 265 mg/dl (70-99)
[2024-08-28 22:51] VITALS: BP 139/89
[2024-08-29] MEDS: TESSALON PERLES 200 MG PO (04:55)
[2024-08-29] MEDS: DUONEB 3 ML INH (05:10)
[2024-08-29 06:00] VITALS: BMI 33.8
[2024-08-29 06:25] LABS: Hematocrit 34.6 % (37.0-47.0); Hemoglobin 11.2 g/dL (12.0-16.0); Mean Corp Hgb Conc. 32.4 g/dL (33.0-37.0); Mean Corpuscular Hgb 29.9 pg (27.0-31.0); Mean Corpuscular Volume 92.5 fL (81.0-99.0); Mean Platelet Volume 10.9 fL (7.4-10.4); Platelet Count 117 10^3/uL (130-400); Red Blood Cell Count 3.74 10^6/uL (4.20-5.40); Red Cell Dist. Width 13.8 % (11.5-14.5); White Blood Cell Count 13.6 10^3/uL (4.8-10.8)
[2024-08-29 06:46] LABS: Blood Urea Nitrogen 37 mg/dl (7-17); Carbon Dioxide 23 mmol/L (22-30); Chloride 104 mmol/L (98-107); Estimated Creatinine Clearance 51 ml/min; Glucose 165 mg/dl (70-99); Potassium 3.4 mmol/L (3.5-5.1); Sodium 136 mmol/L (135-145); eGFR > 60.00
[2024-08-29 07:23] VITALS: BP 186/81
[2024-08-29] MEDS: VIBRAMYCIN 100 MG PO ×2 (07:44→20:43)
[2024-08-29] MEDS: COZAAR 100 MG PO (07:44)
[2024-08-29] MEDS: ZEBETA 5 MG PO (07:46)
[2024-08-29] MEDS: TYLENOL 650 MG PO ×3 (07:47→20:48)
[2024-08-29] MEDS: CARDIZEM CD 240 MG PO (07:47)
[2024-08-29] MEDS: LIPITOR 20 MG PO (07:49)
[2024-08-29] MEDS: MUCINEX 600 MG PO ×2 (07:51→20:43)
[2024-08-29] MEDS: ZOLOFT 50 MG PO (07:51)
--- NOTE | 2024-08-29 08:05 | W.PN.ONC2 ---
Today's Communication / Plan
-
OP follow up will be arranged upon discharge
I provided updates to son, Gilmar, on speaker phone in room with pt. Questions answered. I provided my contact information and encouaged pt and Gilmar to reach out with any questions or concerns.
Impression
Impression
acute hypoxic respiratory failure on 2L NC
hypercalcemia of malignancy -resolved s/p pamidronate
suspected metastatic lung cancer
CAP on abx
headache
Plan
Plan
Pulmonary planning OP follow up for potential bronch
MRI brain w &w/o to further evaluate headache
Will plan outpatient oncology f/u to review path, order add'l staging studies (PET), and consider options for treatment
Subjective/Objective
Subjective
new headache, denies dizziness or other neurological changes
Vital Signs:
Vital Signs
Temp Pulse Resp BP Pulse Ox
97.2 F 73 24 186/81 92
08/29/24 07:23 08/29/24 07:23 08/29/24 07:23 08/29/24 07:23 08/29/24 07:23
Lab Results:
Laboratory Data
WBC 13.6 10^3/uL (4.8-10.8) H 08/29/24 05:32
Hgb 11.2 g/dL (12.0-16.0) L 08/29/24 05:32
Plt Count 117 10^3/uL (130-400) L 08/29/24 05:32
PT 18.8 Sec (11.4-14.6) H 08/26/24 06:32
INR 1.54 08/26/24 06:32
APTT 41.8 Sec (23.4-35.0) H 08/25/24 06:41
eGFR > 60.00 08/29/24 05:32
Physical Exam
HEENT: No Jaundice or Moist Mucous Membranes
Cardiology: S1 and S2
Pulmonary: Clear
GI: Soft
Extremities: Pulses Present
Neuro: Non Focal
[2024-08-29 08:18] LABS: Glucose - Point of Care 163 mg/dl (70-99)
[2024-08-29 08:59] LABS: INR 2.37; PT 26.4 Sec (11.4-14.6)
[2024-08-29 09:00] LABS: APTT 50.2 Sec (23.4-35.0)
[2024-08-29] MEDS: NOVOLOG FLEXPEN-LOW RESISTANCE 1 UNITS SC ×2 (09:02→18:11)
[2024-08-29] MEDS: KCL 40 MEQ PO (09:04)
[2024-08-29 11:55] LABS: Glucose - Point of Care 204 mg/dl (70-99)
--- NOTE | 2024-08-29 12:11 | W.PN.PUL3 ---
Today's Communication / Plan
-
Doing well today, no complaints, stable on RA
We discussed OP FU again, updated son yesterday
Outpatient pulm FU left in chart
Awaiting SNF placement per team
We will sign off at this time, please call with questions
Assessment
-
Patient is a 79-year-old female with previous history of diabetes, hyperlipidemia, right lower extremity DVT on Coumadin presenting to ER with generalized weakness, cough complaints, left-sided flank pain over the past week. She had alerted EMS
today because of feeling of weakness, could not get up from commode and felt her legs give way. She denies any shortness of breath with this episode but was noted to be hypoxemic on arrival to ER. She was hypertensive with systolic BP of 200 and
tachycardia of 123. Serum calcium was very elevated at 15.2 which prompted malignancy w/u. Chest x-ray demonstrated possible right basilar disease, follow-up CT abdomen pelvis indicating postobstructive mass versus pneumonia at right base. We are
consulted for eval.
Generalized weakness
Nonproductive cough
Abnormal CT, right sided postobstructive pneumonia versus mass
Suspect widely metastatic disease based on CT (liver, bone, adrenal)
Compressive atelectasis
Hypertensive urgency
Tachycardia
Hypercalcemia
Suspect COPD
Emphysema noted on CT
Conditions present prior to admission
Varicose veins
Non-pressure chronic ulcer of R ankle
Diabetes
Hyperlipidemia
Right lower extremity DVT on Coumadin
Former smoker, 30 pack years, quit 24 years ago
Obesity BMI 34
Plan
She was notably low in her O2 in admission, but lázaro at 91%--she was placed on 2L NC
Not known to be on home O2, this could likely be weaned off
Home O2 evaluation eventually
Prior history of lung disease is NOT noted though suspected --
She was a former smoker, 1 PPD started at age 21 and quit 24 years ago (30+ pack years).
She denies family history of lung disease or cancers.
She has never seen a refinery pipeline operator nor had lung cancer screening.
Emphysema is noted on her imaging as well. No prior PFTs for review.
Imaging reviewed, new RLL consolidation, no prior recent imaging for review
CXR 2016 with no acute findings
Suspect patient has possible postobs PNA vs mass--she is high risk
We discussed evaluation via bronchoscopy but could be done as OP --preoperative testing with PFTs and ECHO can be done
She was agreeable to this
Weakness noted, would obtain PT consult/eval
Likely d/c planning to SNF
HTN urgency noted, no known history of cardiac disease
Has risk factors
No ECHO for review, will obtain new study--reviewed/stable
May need OP referral to cards for preop eval, son has requested inpatient consult
Renal following for hypercalcemia
Could be related to underlying malignancy, trending down with IVFs
Smoking history noted--quit 24 years ago
Smoking cessation continued
Weight loss measures recommended
Obesity noted, BMI 34
Risk factors assessed for underlying sleep disordered breathing also noted, recommend outpatient PSG/sleep evaluation
Will need outpatient pulmonary evaluation in our office for PFTs and 6MWT
Reviewed with patient and Son (Gaurav, who is POA) -- he is not sure she has the functional capacity to endure treatment and multiple visits
I explained the expectations with this type of diagnosis
They will discuss with patient
Discharge planning per team to SNF
Further management to continue as OP
Diagnostic Data
Chest X-Ray: 08/25/24- New findings concerning for right-sided pneumonia.
09/21/15- No active disease.
CT Scan: CAP 08/27/24- Soft tissue fullness in the right hilar and infrahilar region with abrupt cut off of the bronchus intermedius. Findings likely represent a combination of infected neoplasm and postobstructive atelectasis within the right
middle and right lower lobe. Lymphadenopathy within the chest, which is likely neoplastic lymphadenopathy. Small to moderate right pleural effusion.
Patchy parenchymal opacity within the right upper lobe of the lung, which is likely patchy pneumonia. Patchy parenchymal opacity within the posterior aspect of the left lower lobe of the lung, most likely atelectasis, although pneumonia is also
possible. Minimal left pleural effusion. Changes of emphysema in the visualized upper lungs. Cholelithiasis. Mild fatty infiltration liver. Low-density lesion within the anterior left lobe of the liver, nonspecific, but concerning for hepatic
metastatic disease. 3 cm mass arising in the right adrenal gland, and CT features are most suggestive of adenoma or myelolipoma. However, given the rest of the findings on this examination, metastatic disease not completely excluded. Lucent lesions
within the skeleton as described, and raises concern for bony metastatic disease, especially lesion within C6. As warranted, further evaluation with nuclear medicine bone scan could be considered. As warranted, further evaluation with CT examination
with intravenous contrast may be helpful.
Echo:
PFT's:
Reports and relevant images were personally reviewed.
Total time spent on this encounter __35__ minutes which includes review of history, physical exam, medications, laboratory data, personal review of imaging, extensive review of outpatient records, discussion with care team and respiratory therapy.
Subjective Data
-
Date of Service:
Date of Service: August 29, 2024
Chief Complaint: Pulmonary Follow Up
Subjective:
No new events ON, stable on RA
No new complaints
Objective Data
Data Reviewed
Vital Signs / I&O / Oxygen:
Vital Signs
Temp Pulse Resp BP Pulse Ox
97.2 F 73 24 186/81 92
08/29/24 07:23 08/29/24 07:23 08/29/24 07:23 08/29/24 07:23 08/29/24 07:23
Intake and Output
08/28/24 08/29/24 08/30/24
06:59 06:59 06:59
Intake Total 960 / 960 1800 / 1800
Output Total 125 / 125
Balance 960 / 960 1675 / 1675
SaO2 92
Nasal Cannula flow liters per 2
minute
Physical Exam
General: Comfortable and Other (NAD)
HEENT: Normocephalic, Anicteric and Moist Mucous Membranes
Cardiovascular: S1-S2 and Regular Rhythm
Respiratory: Clear and Non-Labored Respirations
GI: Soft, Non Distended and Non Tender
Neurology: Awake, Alert, Oriented and No Motor Deficits
Skin: Warm, Dry and Good Color
Labs/Micro/Reports
Lab Data
08/29/24 08:09
08/29/24 05:32
Laboratory Results
08/29/24
08:14
PT 26.4 H
INR 2.37
APTT 50.2 H
Microbiology
08/25/24 18:34 Nose MRSA Screen - Final
No Methicillin Resistant Staphylococcus aureus isolated.
08/25/24 12:01 Urine Urine Culture - Final
No Significant Growth
[2024-08-29] MEDS: NOVOLOG FLEXPEN-LOW RESISTANCE 2 UNITS SC (12:48)
--- NOTE | 2024-08-29 12:52 | W.PN.HOSP.TC ---
Today's Communication/Plan
-
Continue with antibiotics
Follow-up MRI brain with and without contrast
Cardiology consult for prebronchoscopy evaluation
Likely discharge to [facility] tomorrow
Assessment / Plan
Assessment / Plan
#Acute hypoxemic respiratory insufficiency
#Community-acquired pneumonia
#Sepsis POA, now resolved
-Chest x-ray with right-sided infiltrate concerning for pneumonia, leukocytosis present
-Has required low levels of oxygen here, does not wear oxygen at baseline
-Was started on IV ceftriaxone and doxycycline empirically
-Urine antigen testing negative for Legionella; viral panel negative
-CT C/A/P showed signs of pneumonia superimposed on lung malignancy
Plan
-Continue antibiotics, plan for 7 days
-Trend CBC and temperature curve
-Wean oxygen for SpO2 >90%
-Plan for cefdinir for oral regimen
#Metastatic lung cancer
-CT C/A/P without contrast showed likely bronchogenic carcinoma the right lung, adrenal mass, C6 bone lesion
-Patient does have previous smoking history despite stopping 24 years ago, smoked as well
-Pulmonology and oncology following, planning for bronchoscopy with biopsy and tissue diagnosis
-Will need formal staging with PET/CT, possible brain MRI with and without contrast
-Will need to have consideration for PD-1 testing if non-small cell lung cancer noted
-Oncology ordered MRI brain with and without contrast to assess for metastatic lesion
#Hypercalcemia
-Very likely secondary to metastatic lung cancer, unclear histopathology at this time
-Vitamin D levels were low; TSH normal; iPTH ordered with results pending
-S/p pamidronate; nephrology sent paraprotein workup for multiple myeloma
-Follow-up iPTH levels, SPEP/UPEP + ETHAN, PTHrP levels
-Calcium levels normalized, continue to monitor BMP
#Elevated serum creatinine
-On arrival had serum creatinine 1.2; last labs in November with creatinine 0.9
-Creatinine clearance 41, suspect this may be CKD stage III rather than BLANCHE
-Creatinine level has been fairly stable here, between 1.0 and 1.2
-May be associated with hypercalcemia if MM present
-Monitor daily BMP, avoid nephrotoxin
#T2DM with hyperglycemia
-On arrival blood sugar was 377; Home medications include metformin and glipizide
-Metformin held; continued on glipizide and started on ISS with Accu-Cheks
-Blood sugars in the range of 130s to 200 for the most part since admission
-Continue with current regimen, BG goal 100-200, avoid hypoglycemia
#Hypertension
-Home medication includes losartan, bisoprolol, diltiazem
-No known history of hypertensive systemic disease
-BP currently elevated
-Ordered IV hydralazine as needed
#H/O DVT of RLE
-Home medications include warfarin with INR goal 2�3
-Will continue warfarin and monitor INR
#Hypokalemia
-Likely nutritional, provided KCl syrup today
-Continue to trend BMP and replete as needed
DVT prophylaxis: Home warfarin
Diet: Carb controlled
CODE STATUS: full code
The patient's 2 sons (Tyson and Gilmar) were present and I provided them with updates. Stated that they would prefer daily updates if possible. Gilmar's phone number [phone], would like results of tests here prior to giving them to the patient
so that they can be present
Anticipated Discharge: Within 24 hours
Subjective/Interval History
-
Date of Service: August 29, 2024
Seen and examined at the bedside. Her sons were in the room and updates were provided. No acute events. AFVSS this morning on 2 L oxygen
INR this morning returned at 2.36. Per nursing, patient had 2 episodes of diarrhea this morning
Denies any other acute complaints.
Objective Data
-
Labs:
Laboratory Results
08/29/24 08/29/24 08/29/24
05:32 08:09 08:14
WBC 13.6 H Cancelled
Hgb 11.2 L Cancelled
Hct 34.6 L Cancelled
Plt Count 117 L Cancelled
PT 26.4 H
INR 2.37
APTT 50.2 H
Sodium 136
Potassium 3.4 L
Chloride 104
Carbon Dioxide 23
BUN 37 H
Creatinine 0.9
Glucose 165 H
Calcium 9.0
Vital Signs:
Vital Signs
Temp Pulse Resp BP Pulse Ox
97.2 F 73 24 186/81 92
08/29/24 07:23 08/29/24 07:23 08/29/24 07:23 08/29/24 07:23 08/29/24 07:23
I&O
08/28/24 08/29/24 08/30/24
06:59 06:59 06:59
Intake Total 960 / 960 1800 / 1800
Output Total 125 / 125
Balance 960 / 960 1675 / 1675
Review of Systems
-
History Source: Patient
All other systems: Reviewed and negative
Physical Exam
-
General: Well Developed, No Apparent Distress, Comfortable and Obese
HEENT: Normocephalic, Atraumatic, Moist Mucous Membranes, Anicteric and Oxygen
Respiratory: Clear to Auscultation and Non Labored Respirations; Negative Wheezes, Rales, Rhonchi or Accessory Resp Muscle Use
Cardiac: Regular Rhythm, S1/S2 and Murmur (2/6 HUMBERTO); Negative Rub or Gallop
GI: Soft, Nontender, Nondistended and Normal Bowel Sounds
Musculoskeletal: No Clubbing, No Cyanosis and No Edema
Skin: Warm, Dry and Normal Turgor; Negative Rash
Neuro: AO x 3 and Nonfocal/Grossly Intact
Psych: Anxious
Data Reviewed
-
Labs: Labs Reviewed by me, Discussed with Patient and Discussed with Family
[2024-08-29 13:01] LABS: Albumin 3.29 g/dL (3.75-5.01); Alpha 1 Globulin 0.38 g/dL (0.19-0.46); Alpha 2 Globulin 0.96 g/dL (0.48-1.05); SPEP IFE Reflex Not Done; Total Protein-Electrophoresis 6.4 g/dL (6.3-8.2)
--- NOTE | 2024-08-29 13:08 | CM ---
Addendum entered by Keyanna Christiansen RN 08/29/24 15:49:
Voice message left for Faraz with [facility] inquiring if bed will be available for the patient for potential discharge tomorrow. Awaiting call back.
Original Note:
Reviewed the chart notes and spoke with the patient at the bedside. IMM signed and placed on the chart. CM continues to be available to patient/family and is monitoring medical plan for needs at discharge.
Plan: Discharge to SNF/rehab once medically stable and bed secured. No precert required.
--- NOTE | 2024-08-29 13:19 | W.PN.NEPH.PH ---
Today's Communication / Plan
-
Await PTH RP
Assessment/Plan
-
IMP:
Hypercalcemia - Ca 15.5
Suspected Pneumonia
possible mild BLANCHE
DVT - h/o RLE DVT on coumadin
DM II
Primary HTN
Plan:
malignancy w/u
follow BMP
await PTHrP
no IVF
Replete potassium
-
-
Date of Service: August 29, 2024
CC / HPI / ROS
-
Chief Complaint:
Hypercalcemia
History of Present Illness:
calcium down to 9.0
Potassium low 3.4
hemodynamically stable, BP high
creatinine down to 0.9
Review of Systems:
no chest pain
resting comfortably on NC O2
Labs
-
Labs:
WBC Cancelled 08/29/24 08:09
RBC Cancelled 08/29/24 08:09
Hgb Cancelled 08/29/24 08:09
Hct Cancelled 08/29/24 08:09
Plt Count Cancelled 08/29/24 08:09
Sodium 136 mmol/L (135-145) 08/29/24 05:32
Potassium 3.4 mmol/L (3.5-5.1) L 08/29/24 05:32
Chloride 104 mmol/L (98-107) 08/29/24 05:32
Carbon Dioxide 23 mmol/L (22-30) 08/29/24 05:32
BUN 37 mg/dl (7-17) H 08/29/24 05:32
Creatinine 0.9 mg/dL (0.6-1.0) 08/29/24 05:32
eGFR > 60.00 08/29/24 05:32
Glucose 165 mg/dl (70-99) H 08/29/24 05:32
Calcium 9.0 mg/dl (8.4-10.2) 08/29/24 05:32
Ssn-L-Ksztllzjcbv Pept 533 pg/ml 08/24/24 23:53
Albumin 3.8 g/dl (3.5-5.0) 08/26/24 06:32
Physical Exam
-
Vital Signs:
Vital Signs
Temp Pulse Resp BP Pulse Ox
97.2 F 73 24 186/81 92
08/29/24 07:23 08/29/24 07:23 08/29/24 07:23 08/29/24 07:23 08/29/24 07:23
Cardiovascular:: Regular rate and rhythm
Respiratory:: Bilateral: CTA
Lung Excursion:: Normal
Abdomen:: Nontender and Soft
Bowel Sounds:: Normal
Extremity Edema:: None: Bilateral:
[2024-08-29] MEDS: KCL 20 MEQ PO (13:26)
[2024-08-29 16:15] VITALS: BP 156/74
[2024-08-29 17:04] VITALS: O2SAT 99
[2024-08-29 17:04] LABS: Glucose - Point of Care 178 mg/dl (70-99)
[2024-08-29] MEDS: COUMADIN 6 MG PO (18:12)
[2024-08-29 21:34] LABS: Glucose - Point of Care 245 mg/dl (70-99)
[2024-08-29 23:05] VITALS: BP 151/64
[2024-08-29] MEDS: ROCEPHIN 1000 MG IV (23:36)
[2024-08-29] MEDS: STERILE WATER FOR INJECTION 10 ML IV (23:36)
[2024-08-30] MEDS: TESSALON PERLES 200 MG PO (05:51)
[2024-08-30 06:00] VITALS: BMI 33.8
[2024-08-30] MEDS: DUONEB 3 ML INH ×2 (06:05→14:14)
[2024-08-30 07:55] VITALS: BP 151/66
[2024-08-30 08:00] LABS: Hematocrit 34.3 % (37.0-47.0); Hemoglobin 10.9 g/dL (12.0-16.0); Mean Corp Hgb Conc. 31.8 g/dL (33.0-37.0); Mean Corpuscular Hgb 29.4 pg (27.0-31.0); Mean Corpuscular Volume 92.5 fL (81.0-99.0); Mean Platelet Volume 10.6 fL (7.4-10.4); Platelet Count 123 10^3/uL (130-400); Red Blood Cell Count 3.71 10^6/uL (4.20-5.40); Red Cell Dist. Width 13.9 % (11.5-14.5); White Blood Cell Count 12.5 10^3/uL (4.8-10.8)
[2024-08-30] MEDS: VIBRAMYCIN 100 MG PO (08:02)
[2024-08-30] MEDS: ZOLOFT 50 MG PO (08:03)
[2024-08-30] MEDS: ZEBETA 5 MG PO (08:03)
[2024-08-30] MEDS: CARDIZEM CD 240 MG PO (08:03)
[2024-08-30] MEDS: LIPITOR 20 MG PO (08:03)
[2024-08-30] MEDS: COZAAR 100 MG PO (08:03)
[2024-08-30] MEDS: MUCINEX 600 MG PO ×2 (08:03→20:57)
[2024-08-30 08:11] LABS: Glucose - Point of Care 170 mg/dl (70-99)
[2024-08-30 08:13] LABS: INR 3.13
[2024-08-30 08:30] LABS: Blood Urea Nitrogen 31 mg/dl (7-17); Calcium 8.4 mg/dl (8.4-10.2); Carbon Dioxide 22 mmol/L (22-30); Chloride 107 mmol/L (98-107); Estimated Creatinine Clearance 56 ml/min; Glucose 169 mg/dl (70-99); Potassium 3.9 mmol/L (3.5-5.1); Sodium 138 mmol/L (135-145); eGFR > 60.00
[2024-08-30 09:01] LABS: % Basophils 0.6 % (0-2); % Eosinophils 2.2 % (0-6); % Immature Granulocytes 8.4 % (0-0.5); % Lymphocytes 9.1 % (20.5-51.1); % Monocytes 6.1 % (1.7-9.3); % Neutrophils 73.6 % (42.2-75.2); Absolute Basophils 0.1 10^3/uL (0-0.2); Absolute Eosinophils 0.3 10^3/uL (0-0.7); Absolute Lymphocytes 1.1 10^3/uL (1.2-3.4); Absolute Monocytes 0.8 10^3/uL (0.1-0.6); Absolute Neutrophils 9.2 10^3/uL (1.4-6.5); Nucleated Red Blood Cells % 0 %
[2024-08-30] MEDS: NOVOLOG FLEXPEN-LOW RESISTANCE 1 UNITS SC (09:10)
--- NOTE | 2024-08-30 09:15 | CON.CAR ---
Consultation
Consultation Request
Date/Time Consultation Requested: 08/29/24 11:08 AM
Date/Time Consultation Performed: 08/30/24 9:00 AM
Requesting Provider: Damian Peters MD
Performing Provider: Jonathan Zelaya MD
Reason for Consultation: Preoperative risk stratification for bronchoscopy
Medical History
-
Chief Complaint: Preprocedural cardiac risk stratification for bronchoscopy
History of Present Illness:
79-year-old woman with a past medical history of noninsulin-dependent diabetes, hypertension, hyperlipidemia, DVT on warfarin who presented to the hospital with cough and hypoxia, found to have RLL consolidation concerning for postobstructive
pneumonia versus lung mass. Pulmonary saw her this admission and is planning for an outpatient bronchoscopy. Cardiology was consulted for preprocedural risk stratification.
Patient reports that she does not see a stress analyst and has never been told she has any heart problems. She has chronic shortness of breath and cough which are being attributed to underlying lung disease. She denies chest pressure, palpitations,
leg swelling, orthopnea, and syncope. She did have 1 presyncopal episode a few months ago when her sugar was in the 300s. She had an echocardiogram on 08/28/2024 which showed normal biventricular size and function and moderate aortic stenosis.
Past Medical History
Past Medical History: HTN, Hypercholesterolemia, NIDDM and Other (DVT on warfarin)
Social History
Tobacco: Former Smoker
Living: Alone
Family History
Family History: Reviewed & Not Pertinent
Allergies / Home Medications
Allergy/AdvReac Type Severity Reaction Status Date / Time
latex Allergy Mild Rash Verified 08/24/24 23:14
Penicillins Allergy Rash Verified 08/24/24 23:14
�Medication �Instructions �Recorded �Confirmed �Type
acetaminophen 325 mg tablet 650 mg PO Q4HPRN PRN back pain 08/25/24 08/25/24 History
(Tylenol)
atorvastatin 20 mg tablet 20 mg PO DAILY High Cholesterol 08/25/24 08/25/24 History
bisoprolol fumarate 5 mg tablet 5 mg PO DAILY Blood Pressure 08/25/24 08/25/24 History
chlorpheniramine-acetaminophen 2 1 tab PO DAILYPRN PRN cough 08/25/24 08/25/24 History
mg-325 mg tablet
diltiazem HCl 240 mg 240 mg PO DAILY Heart 08/25/24 08/25/24 History
capsule,extended release 24 hr Disease/Condition
guaifenesin 600 mg tablet, 600 mg PO BIDPRN PRN cough 08/25/24 08/25/24 History
extended release 12 hr (Mucinex)
losartan 100 mg tablet 100 mg PO DAILY Blood Pressure 08/25/24 08/25/24 History
metformin 500 mg tablet 500 mg PO BID Diabetes 08/25/24 08/25/24 History
pioglitazone 30 mg tablet 30 mg PO DAILY Diabetes 08/25/24 08/25/24 History
sertraline 50 mg tablet 50 mg PO DAILY Mental 08/25/24 08/25/24 History
Health/Anxiety
warfarin 5 mg tablet 9 mg PO DAILY Blood Clot 08/25/24 08/25/24 History
Prevention/Tx
Review of Systems
-
All other systems: Negative unless noted
Physical Exam
Vital Signs
Temp Pulse Resp BP Pulse Ox
98.4 F 78 18 151/66 89
08/30/24 07:55 08/30/24 07:55 08/30/24 07:55 08/30/24 07:55 08/30/24 07:55
Lab Results
08/30/24 07:41
08/30/24 07:41
Troponin I 0.022 ng/ml 08/24/24 23:53
Vsa-B-Aoxnatbdfha Pept 533 pg/ml 08/24/24 23:53
Physical Exam
General: Well Developed and No Apparent Distress
Respiratory: Crackles and Rhonchi
Cardiac: S1/S2, Regular Rhythm and Murmur; Negative Peripheral Edema or JVD
Breast: Deferred by me
Musculoskeletal: No Edema
Skin: Warm and Dry
Neuro: AO x 3
Impression / Plan
-
79-year-old woman with a past medical history of noninsulin-dependent diabetes, hypertension, hyperlipidemia, coronary artery calcifications, DVT on warfarin who presented to the hospital with cough and hypoxia, found to have RLL consolidation
concerning for postobstructive pneumonia versus lung mass. Pulmonary saw her this admission and is planning for an outpatient bronchoscopy. Cardiology was consulted for preprocedural risk stratification.
Preprocedural risk stratification
-Her functional status is extremely limited by her lung disease, so it is difficult to assess for angina, but she does not have any symptoms of angina with her normal activities.
-Bronchoscopy is a low risk procedure done with conscious sedation, so I do not feel that she needs any further cardiovascular testing prior
-Please note that she has moderate aortic stenosis (peak/mean gradient 39/23 mmHg, ERICA 1.0 cm�) so would avoid volume depletion
Moderate aortic stenosis
-She does not currently follow with a stress analyst. I discussed with her send that she would like to follow-up with us.
-I will have our office call her son Gilmar to arrange follow-up.
Coronary artery calcifications
-Continue atorvastatin 20 mg daily
Hypertension
-BPs here have been elevated but this is in the setting of acute illness. May need further titration as an outpatient.
-Continue diltiazem, losartan, and bisoprolol
DVT
-Continue warfarin
Cardiology will sign off at this time. Please call with any further questions or concerns.
Data Reviewed
-
EKG: Tracing Personally Visualized and interpreted
CT Scan: Image Personally Visualized and interpreted
Medical Tests (Nuc Med, Echo etc): Report Reviewed by me, Discussed with Physician, Discussed with Patient and Discussed with Family
Labs: Labs Reviewed by me
[2024-08-30] MEDS: ATIVAN 0.5 MG IV (10:29)
[2024-08-30] MEDS: NSS (PRESERVATIVE FREE) 0.25 ML IV (10:30)
--- NOTE | 2024-08-30 10:54 | W.PN.NEPH.PH ---
Today's Communication / Plan
-
Sign off
Assessment/Plan
-
IMP:
Hypercalcemia - Ca 15.5
Suspected Pneumonia
possible mild BLANCHE
DVT - h/o RLE DVT on coumadin
DM II
Primary HTN
Plan:
malignancy w/u
Calcium now stabilized
Creatinine and other electrolytes normal
We will sign off
-
-
Date of Service: August 30, 2024
CC / HPI / ROS
-
Chief Complaint:
Hypercalcemia
History of Present Illness:
calcium down to 8.4
hemodynamically stable, BP high
creatinine down to 0.9
Review of Systems:
no chest pain
resting comfortably on NC O2
Labs
-
Labs:
WBC 12.5 10^3/uL (4.8-10.8) H 08/30/24 07:41
RBC 3.71 10^6/uL (4.20-5.40) L 08/30/24 07:41
Hgb 10.9 g/dL (12.0-16.0) L 08/30/24 07:41
Hct 34.3 % (37.0-47.0) L 08/30/24 07:41
Plt Count 123 10^3/uL (130-400) L 08/30/24 07:41
Sodium 138 mmol/L (135-145) 08/30/24 07:41
Potassium 3.9 mmol/L (3.5-5.1) 08/30/24 07:41
Chloride 107 mmol/L (98-107) 08/30/24 07:41
Carbon Dioxide 22 mmol/L (22-30) 08/30/24 07:41
BUN 31 mg/dl (7-17) H 08/30/24 07:41
Creatinine 0.8 mg/dL (0.6-1.0) 08/30/24 07:41
eGFR > 60.00 08/30/24 07:41
Glucose 169 mg/dl (70-99) H 08/30/24 07:41
Calcium 8.4 mg/dl (8.4-10.2) 08/30/24 07:41
Sue-X-Lwzpwsrvtgt Pept 533 pg/ml 08/24/24 23:53
Albumin 3.8 g/dl (3.5-5.0) 08/26/24 06:32
Physical Exam
-
Vital Signs:
Vital Signs
Temp Pulse Resp BP Pulse Ox
98.4 F 78 18 151/66 89
08/30/24 07:55 08/30/24 07:55 08/30/24 07:55 08/30/24 07:55 08/30/24 07:55
Cardiovascular:: Regular rate and rhythm
Respiratory:: Bilateral: CTA
Lung Excursion:: Normal
Abdomen:: Nontender and Soft
Bowel Sounds:: Normal
Extremity Edema:: None: Bilateral:
--- NOTE | 2024-08-30 11:46 | W.PN.ONC2 ---
Today's Communication / Plan
-
Updates provided to son, Gilmar, at bedside
f/u MRI brain
OP follow up
Impression
Impression
acute hypoxic respiratory failure on 2L NC
hypercalcemia of malignancy -resolved s/p pamidronate
suspected metastatic lung cancer
CAP on abx
headache
Plan
Plan
Pulmonary planning OP follow up for potential bronch
MRI brain w &w/o to further evaluate headache
Will plan outpatient oncology f/u to review path, order add'l staging studies (PET), and consider options for treatment
Subjective/Objective
Subjective
headache persists
Vital Signs:
Vital Signs
Temp Pulse Resp BP Pulse Ox
98.4 F 78 18 151/66 89
08/30/24 07:55 08/30/24 07:55 08/30/24 07:55 08/30/24 07:55 08/30/24 07:55
Lab Results:
Laboratory Data
WBC 12.5 10^3/uL (4.8-10.8) H 08/30/24 07:41
Hgb 10.9 g/dL (12.0-16.0) L 08/30/24 07:41
Plt Count 123 10^3/uL (130-400) L 08/30/24 07:41
PT 32.0 Sec (11.4-14.6) H 08/30/24 07:41
INR 3.13 08/30/24 07:41
APTT 50.2 Sec (23.4-35.0) H 08/29/24 08:14
eGFR > 60.00 08/30/24 07:41
Physical Exam
HEENT: No Jaundice
Cardiology: S1 and S2
Pulmonary: Other (diminished)
GI: Soft
Extremities: Pulses Present; No Edema
Neuro: Non Focal
Orders
Orders
Orders From Last 24 Hours
08/30/24 10:50
MR Brain W/o & With Contrast Routine
[2024-08-30 12:53] LABS: Glucose - Point of Care 219 mg/dl (70-99)
--- NOTE | 2024-08-30 13:13 | W.PN.HOSP.TC ---
Today's Communication/Plan
-
Follow-up MRI brain with and without contrast
Reduce warfarin at 3 mg nightly and trend INR
SpO2 goal 88 to 94%
Consider repeat chest x-ray
Start as needed Ativan
Assessment / Plan
Assessment / Plan
#Acute hypoxemic respiratory insufficiency
#Community-acquired pneumonia
#Sepsis POA, now resolved
-Chest x-ray with right-sided infiltrate concerning for pneumonia, leukocytosis present
-Has required low levels of oxygen here, does not wear oxygen at baseline
-Was started on IV ceftriaxone and doxycycline empirically; s/p Doxy
-Urine antigen testing negative for Legionella; viral panel negative
-CT C/A/P showed signs of pneumonia superimposed on lung malignancy
-Suspect component of anxiety contributing to her shortness of breath
-On 3 L with SpO2 in the low 90s this morning
Plan
-Continue antibiotics, plan for 7 days
-Trend CBC and temperature curve
-Wean oxygen for SpO2 >90% 88 to 94% in context of emphysema
-Continue with DuoNebs as needed
-Consider repeating chest x-ray
#Metastatic lung cancer
-CT C/A/P without contrast showed likely bronchogenic carcinoma the right lung, adrenal mass, C6 bone lesion
-Patient does have previous smoking history despite stopping 24 years ago, smoked as well
-Pulmonology and oncology following, planning for bronchoscopy with biopsy and tissue diagnosis
-Will need formal staging with PET/CT, possible brain MRI with and without contrast
-Will need to have consideration for PD-1 testing if non-small cell lung cancer noted
-Oncology ordered MRI brain with and without contrast to assess for metastatic lesion
#Hypercalcemia
-Very likely secondary to metastatic lung cancer, unclear histopathology at this time
-Vitamin D levels were low; TSH normal; iPTH ordered with results pending
-S/p pamidronate; nephrology sent paraprotein workup for multiple myeloma
-Follow-up iPTH levels, SPEP/UPEP + ETHAN, PTHrP levels
-Calcium levels normalized, continue to monitor BMP
#Elevated serum creatinine
-On arrival had serum creatinine 1.2; last labs in November with creatinine 0.9
-Creatinine clearance 41, suspect this may be CKD stage III rather than BLANCHE
-Creatinine level has been fairly stable here, between 1.0 and 1.2
-May be associated with hypercalcemia if MM present
-Monitor daily BMP, avoid nephrotoxin
#T2DM with hyperglycemia
-On arrival blood sugar was 377; Home medications include metformin and glipizide
-Metformin held; continued on glipizide and started on ISS with Accu-Cheks
-Blood sugars in the range of 130s to 200 for the most part since admission
-Continue with current regimen, BG goal 100-200, avoid hypoglycemia
#Hypertension
-Home medication includes losartan, bisoprolol, diltiazem
-No known history of hypertensive systemic disease
-BP currently elevated
-Ordered IV hydralazine as needed
#H/O DVT of RLE
-Home medications include warfarin with INR goal 2�3
-INR up to 3.1 on 6 mg warfarin nightly, reduced to 3 mg for now
-Will continue warfarin and monitor INR
#Hypokalemia
-Likely nutritional, provided KCl syrup today
-Continue to trend BMP and replete as needed
DVT prophylaxis: Home warfarin
Diet: Carb controlled
CODE STATUS: full code
The patient's 2 sons (Tyson and Gilmar) were present and I provided them with updates. Stated that they would prefer daily updates if possible. Gilmar's phone number [phone], would like results of tests here prior to giving them to the patient
so that they can be present
Anticipated Discharge: > 48 hours
Subjective/Interval History
-
Date of Service: August 30, 2024
Seen and examined at the bedside. No acute events reported overnight. AFVSS on 3 L oxygen
Was slightly short of breath, oxygen levels 89% this morning.
Denies any acute complaints other than anxiety for MRI scan and cough. Ativan ordered
Objective Data
-
Labs:
Laboratory Results
08/30/24
07:41
WBC 12.5 H
Hgb 10.9 L
Hct 34.3 L
Plt Count 123 L
PT 32.0 H
INR 3.13
Sodium 138
Potassium 3.9
Chloride 107
Carbon Dioxide 22
BUN 31 H
Creatinine 0.8
Glucose 169 H
Calcium 8.4
Vital Signs:
Vital Signs
Temp Pulse Resp BP Pulse Ox
98.4 F 78 18 151/66 89
08/30/24 07:55 08/30/24 07:55 08/30/24 07:55 08/30/24 07:55 08/30/24 07:55
I&O
08/29/24 08/30/24 08/31/24
06:59 06:59 06:59
Intake Total 1800 / 1800 1320 / 1320
Output Total 125 / 125
Balance 1675 / 1675 1320 / 1320
Review of Systems
-
History Source: Patient
All other systems: Reviewed and negative
Physical Exam
-
General: Well Developed, No Apparent Distress, Comfortable and Obese
HEENT: Normocephalic, Atraumatic, Moist Mucous Membranes and Anicteric
Respiratory: Clear to Auscultation, Rhonchi and Non Labored Respirations; Negative Wheezes or Rales
Cardiac: Regular Rhythm and S1/S2; Negative Murmur, Rub or Gallop
GI: Soft, Nontender, Nondistended and Normal Bowel Sounds
Musculoskeletal: No Clubbing, No Cyanosis and No Edema
Skin: Warm, Dry and Normal Turgor; Negative Rash
Neuro: AO x 3 and Nonfocal/Grossly Intact; Negative Tremors
Data Reviewed
-
MRI: Discussed with Patient and Discussed with Family
Labs: Labs Reviewed by me and Discussed with Family
[2024-08-30] MEDS: NOVOLOG FLEXPEN-LOW RESISTANCE 2 UNITS SC (13:41)
[2024-08-30] MEDS: IMODIUM 4 MG PO (13:41)
[2024-08-30 16:10] VITALS: BP 151/66
[2024-08-30 16:42] LABS: Glucose - Point of Care 258 mg/dl (70-99)
[2024-08-30] MEDS: NOVOLOG FLEXPEN-LOW RESISTANCE 3 UNITS SC (17:26)
[2024-08-30 21:13] LABS: Glucose - Point of Care 237 mg/dl (70-99)
[2024-08-30 23:30] VITALS: BP 151/81
[2024-08-30] MEDS: ROCEPHIN 1000 MG IV (23:54)
[2024-08-30] MEDS: STERILE WATER FOR INJECTION 10 ML IV (23:54)
[2024-08-30] MEDS: FLUSH (NSS) 2 FLUSH IV (23:55)
[2024-08-31] MEDS: DUONEB 3 ML INH (04:35)
[2024-08-31 06:00] VITALS: BMI 35.2
[2024-08-31 06:04] LABS: INR 3.29; PT 33.3 Sec (11.4-14.6)
[2024-08-31 06:33] LABS: Blood Urea Nitrogen 33 mg/dl (7-17); Calcium 8.1 mg/dl (8.4-10.2); Carbon Dioxide 21 mmol/L (22-30); Chloride 105 mmol/L (98-107); Estimated Creatinine Clearance 50 ml/min; Glucose 186 mg/dl (70-99); Sodium 136 mmol/L (135-145); eGFR > 60.00
[2024-08-31 07:00] VITALS: BP 166/71
[2024-08-31 07:20] LABS: Hematocrit 33.8 % (37.0-47.0); Mean Corp Hgb Conc. 32.5 g/dL (33.0-37.0); Mean Corpuscular Hgb 30.1 pg (27.0-31.0); Mean Corpuscular Volume 92.6 fL (81.0-99.0); Platelet Count 123 10^3/uL (130-400); Red Blood Cell Count 3.65 10^6/uL (4.20-5.40); White Blood Cell Count 12.1 10^3/uL (4.8-10.8)
[2024-08-31 08:17] LABS: Absolute Neutrophils -Man Diff 8.3 10^3/uL (1.4-6.5); Atypical Lymphocytes 2 %; Band Neutrophils 8 % (0-3); Eosinophils 1 % (0-6); Lymphocytes 11 % (20-51); Metamyelocytes 6 % (-); Monocytes 9 % (2-9); Myelocytes 2 % (-); Platelets Checked Yes; Segmented Neutrophils 61 % (42-75)
[2024-08-31 08:18] LABS: Normal RBC Morphology Yes; Total Cells Counted 100
[2024-08-31 08:24] LABS: Glucose - Point of Care 174 mg/dl (70-99)
[2024-08-31] MEDS: ZEBETA 5 MG PO (08:59)
[2024-08-31] MEDS: MUCINEX 600 MG PO ×2 (09:00→20:44)
[2024-08-31] MEDS: CARDIZEM CD 240 MG PO (09:00)
[2024-08-31] MEDS: COZAAR 100 MG PO (09:00)
[2024-08-31] MEDS: ZOLOFT 50 MG PO (09:01)
[2024-08-31] MEDS: LIPITOR 20 MG PO (09:01)
[2024-08-31] MEDS: ATIVAN 0.5 MG PO ×2 (09:02→20:46)
[2024-08-31] MEDS: TYLENOL 650 MG PO ×2 (09:02→16:26)
[2024-08-31] MEDS: NOVOLOG FLEXPEN-LOW RESISTANCE 1 UNITS SC (09:05)
--- NOTE | 2024-08-31 09:08 | CM ---
Per CM handoff, CM to follow up with [facility] Monday on bed availability.
--- NOTE | 2024-08-31 11:39 | W.PN.ONC2 ---
Today's Communication / Plan
-
- MRI brain negative.
- O2 support. eval for need for home O2 on discharge.
- oncology follow up on discharge.
Impression
Impression
acute hypoxic respiratory failure on NC
hypercalcemia of malignancy -resolved s/p pamidronate
suspected metastatic lung cancer
CAP on abx
headache
Plan
Plan
Pulmonary planning OP follow up for potential bronch
MRI brain w &w/o without OPERATIONS DEVELOPER metastases. non-specific dural thickening unlikely mets.
Will plan outpatient oncology f/u to review path, order add'l staging studies (PET), and consider options for treatment
Subjective/Objective
Chief Complaint
suspected metastatic lung cancer
Subjective
pt has no new complaints this am, sitting in chair. She is on 3L NC. She continues to have cough, WANG. Denies fevers, chills, nausea. notes poor appetite.
Vital Signs:
Vital Signs
Temp Pulse Resp BP Pulse Ox
97.7 F 80 24 166/71 92
08/31/24 07:00 08/31/24 09:00 08/31/24 07:00 08/31/24 09:00 08/31/24 07:00
Lab Results:
Laboratory Data
WBC 12.1 10^3/uL (4.8-10.8) H 08/31/24 05:25
Hgb 11.0 g/dL (12.0-16.0) L 08/31/24 05:25
Plt Count 123 10^3/uL (130-400) L 08/31/24 05:25
PT 33.3 Sec (11.4-14.6) H 08/31/24 05:25
INR 3.29 08/31/24 05:25
APTT 50.2 Sec (23.4-35.0) H 08/29/24 08:14
eGFR > 60.00 08/31/24 05:25
Physical Exam
HEENT: No Jaundice
Cardiology: Normal Sinus Rhythm
Pulmonary: Other (decreased BS in right mid to lower lung guerra )
Extremities: No Edema
Neuro: Non Focal
Review of Systems
Review of Systems
Constitutional: Denies Fever
Respiratory: Reports Dyspnea and Cough
Cardiovascular: Denies Chest Pain
Neurological: Denies Headache or Numbness
[2024-08-31 12:03] LABS: Glucose - Point of Care 232 mg/dl (70-99)
[2024-08-31] MEDS: NOVOLOG FLEXPEN-LOW RESISTANCE 4 UNITS SC (12:22)
--- NOTE | 2024-08-31 12:52 | W.PN.HOSP.TC ---
Today's Communication/Plan
-
SpO2 goal 88 to 94%
Hold warfarin tonight, recheck INR tomorrow
Consider repeating chest x-ray
Assessment / Plan
Assessment / Plan
#Acute hypoxemic respiratory insufficiency
#Community-acquired pneumonia
#Sepsis POA, now resolved
-Chest x-ray with right-sided infiltrate concerning for pneumonia, leukocytosis present
-Has required low levels of oxygen here, does not wear oxygen at baseline
-Was started on IV ceftriaxone and doxycycline empirically; s/p Doxy
-Urine antigen testing negative for Legionella; viral panel negative
-CT C/A/P showed signs of pneumonia superimposed on lung malignancy
-Suspect component of anxiety contributing to her shortness of breath
-On 3 L with SpO2 in the low 90s this morning
Plan
-Continue antibiotics, plan for 7 days, last day 09/01
-Trend CBC and temperature curve
-Wean oxygen for SpO2 >90% 88 to 94% in context of emphysema
-Continue with DuoNebs as needed
-Consider repeating chest x-ray
#Metastatic lung cancer
-CT C/A/P without contrast showed likely bronchogenic carcinoma the right lung, adrenal mass, C6 bone lesion
-Patient does have previous smoking history despite stopping 24 years ago, smoked as well
-Pulmonology and oncology following, planning for bronchoscopy with biopsy and tissue diagnosis
-Will need formal staging with PET/CT, possible brain MRI with and without contrast
-Will need to have consideration for PD-1 testing if non-small cell lung cancer noted
-MRI brain with and without contrast did not have signs of metastasis
#Hypercalcemia
-Very likely secondary to metastatic lung cancer, unclear histopathology at this time
-Vitamin D levels were low; TSH normal; iPTH ordered with results pending
-S/p pamidronate; nephrology sent paraprotein workup for multiple myeloma
-Follow-up iPTH levels, SPEP/UPEP + ETHAN, PTHrP levels
-Calcium levels normalized, continue to monitor BMP
#CKD 3
-On arrival had serum creatinine 1.2; last labs in November with creatinine 0.9
-Creatinine level has been fairly stable here, between 1.0 and 1.2
-Monitor daily BMP, avoid nephrotoxin
#T2DM with hyperglycemia
-On arrival blood sugar was 377; Home medications include metformin and glipizide
-Metformin held; continued on glipizide and started on ISS with Accu-Cheks
-Blood sugars in the range of 130s to 200 for the most part since admission
-Continue with current regimen, BG goal 100-200, avoid hypoglycemia
#Hypertension
-Home medication includes losartan, bisoprolol, diltiazem
-No known history of hypertensive systemic disease
-BP currently elevated
-Ordered IV hydralazine as needed
#H/O DVT of RLE
-Home medications include warfarin with INR goal 2�3
-INR up to 3.1 on 6 mg warfarin nightly, reduced to 3 mg for now
-Hold warfarin evening of 08/31 for supratherapeutic INR
-Plan to resume warfarin at 3 mg when INR at goal
#Hypokalemia
-Likely nutritional, provided KCl syrup today
-Continue to trend BMP and replete as needed
DVT prophylaxis: Home warfarin
Diet: Carb controlled
CODE STATUS: full code
The patient's 2 sons (Tyson and Gilmar) were present and I provided them with updates. Stated that they would prefer daily updates if possible. Gilmar's phone number [phone], would like results of tests here prior to giving them to the patient
so that they can be present
Anticipated Discharge: > 48 hours
Subjective/Interval History
-
Date of Service: August 31, 2024
Seen and examined at the bedside. No acute events reported overnight. AFVSS this morning on 3 L O2
States that she does not feel short of breath at the moment. Denies any acute complaints today
MRI brain yesterday negative for signs of metastases, patient is very happy at this news
Objective Data
-
Labs:
Laboratory Results
08/31/24
05:25
WBC 12.1 H
Hgb 11.0 L
Hct 33.8 L
Plt Count 123 L
PT 33.3 H
INR 3.29
Sodium 136
Potassium 4.0
Chloride 105
Carbon Dioxide 21 L
BUN 33 H
Creatinine 0.9
Glucose 186 H
Calcium 8.1 L
Vital Signs:
Vital Signs
Temp Pulse Resp BP Pulse Ox
97.7 F 80 24 166/71 92
08/31/24 07:00 08/31/24 09:00 08/31/24 07:00 08/31/24 09:00 08/31/24 08:15
I&O
08/30/24 08/31/24 09/01/24
06:59 06:59 06:59
Intake Total 1320 / 1320 1320 / 1320
Balance 1320 / 1320 1320 / 1320
Review of Systems
-
History Source: Patient
All other systems: Reviewed and negative
Physical Exam
-
General: Well Developed, No Apparent Distress, Comfortable and Obese
HEENT: Normocephalic, Atraumatic, Moist Mucous Membranes, Anicteric and PERRLA
Respiratory: Clear to Auscultation and Non Labored Respirations; Negative Wheezes, Rales, Rhonchi or Accessory Resp Muscle Use
Cardiac: Regular Rhythm, S1/S2 and Murmur (2/6 HUMBERTO); Negative Rub or Gallop
GI: Soft, Nontender, Nondistended and Normal Bowel Sounds
Musculoskeletal: No Clubbing, No Cyanosis and No Edema
Skin: Warm, Dry and Normal Turgor; Negative Rash
Neuro: AO x 3, Nonfocal/Grossly Intact and Central Nerve's Intact; Negative Tremors
Psych: Anxious
Data Reviewed
-
MRI: Report Reviewed by me, Discussed with Patient and Discussed with Family
Labs: Labs Reviewed by me and Discussed with Patient
[2024-08-31 15:45] VITALS: BP 127/61
[2024-08-31 16:40] LABS: Glucose - Point of Care 213 mg/dl (70-99)
[2024-08-31] MEDS: NOVOLOG FLEXPEN-LOW RESISTANCE 2 UNITS SC (17:34)
[2024-08-31 21:44] LABS: Glucose - Point of Care 237 mg/dl (70-99)
[2024-08-31 23:30] VITALS: BP 136/62
[2024-09-01] MEDS: ROCEPHIN 1000 MG IV (00:03)
[2024-09-01] MEDS: STERILE WATER FOR INJECTION 10 ML IV (00:03)
[2024-09-01 03:35] LABS: PTH Related Peptide LC-MS/MS 4.6 pmol/L (0.0-3.4)
[2024-09-01 07:00] VITALS: BP 150/64
[2024-09-01 07:09] LABS: INR 3.08; PT 31.7 Sec (11.4-14.6)
[2024-09-01 07:16] LABS: Hematocrit 32.4 % (37.0-47.0); Hemoglobin 10.5 g/dL (12.0-16.0); Mean Corp Hgb Conc. 32.4 g/dL (33.0-37.0); Mean Corpuscular Hgb 30.2 pg (27.0-31.0); Mean Corpuscular Volume 93.1 fL (81.0-99.0); Mean Platelet Volume 10.6 fL (7.4-10.4); Platelet Count 139 10^3/uL (130-400); Red Blood Cell Count 3.48 10^6/uL (4.20-5.40); Red Cell Dist. Width 14.2 % (11.5-14.5); White Blood Cell Count 13.3 10^3/uL (4.8-10.8)
[2024-09-01] MEDS: DUONEB 3 ML INH ×3 (07:16→19:17)
[2024-09-01 07:29] LABS: Blood Urea Nitrogen 37 mg/dl (7-17); Calcium 8.3 mg/dl (8.4-10.2); Carbon Dioxide 21 mmol/L (22-30); Chloride 107 mmol/L (98-107); Estimated Creatinine Clearance 51 ml/min; Glucose 158 mg/dl (70-99); Potassium 4.3 mmol/L (3.5-5.1); Sodium 138 mmol/L (135-145); eGFR > 60.00
[2024-09-01 07:46] LABS: Glucose - Point of Care 156 mg/dl (70-99)
[2024-09-01 09:27] LABS: Absolute Neutrophils -Man Diff 9.5 10^3/uL (1.4-6.5); Band Neutrophils 12 % (0-3); Eosinophils 3 % (0-6); Lymphocytes 9 % (20-51); Metamyelocytes 6 % (-); Monocytes 5 % (2-9); Myelocytes 5 % (-); Normal RBC Morphology Yes; Platelets Checked Yes; Segmented Neutrophils 60 % (42-75)
[2024-09-01 09:28] LABS: Total Cells Counted 100
[2024-09-01] MEDS: NOVOLOG FLEXPEN-LOW RESISTANCE 1 UNITS SC (09:41)
[2024-09-01] MEDS: COZAAR 100 MG PO (09:41)
[2024-09-01] MEDS: CARDIZEM CD 240 MG PO (09:42)
[2024-09-01] MEDS: ZOLOFT 50 MG PO (09:42)
[2024-09-01] MEDS: LIPITOR 20 MG PO (09:44)
[2024-09-01] MEDS: ZEBETA 5 MG PO (09:44)
[2024-09-01] MEDS: MUCINEX 600 MG PO ×2 (09:44→20:37)
[2024-09-01] MEDS: TESSALON PERLES 200 MG PO (09:53)
[2024-09-01] MEDS: TYLENOL 650 MG PO (10:07)
[2024-09-01 11:44] LABS: Glucose - Point of Care 227 mg/dl (70-99)
--- NOTE | 2024-09-01 11:45 | W.PN.HOSP.TC ---
Today's Communication/Plan
-
Last day of antibiotics
Hold warfarin tonight, INR in the morning
SpO2 goal 88 to 94%
Likely discharge to SNF tomorrow
Assessment / Plan
Assessment / Plan
#Acute hypoxemic respiratory insufficiency
#Community-acquired pneumonia
#Sepsis POA, now resolved
-Chest x-ray with right-sided infiltrate concerning for pneumonia, leukocytosis present
-Has required low levels of oxygen here, does not wear oxygen at baseline
-Was started on IV ceftriaxone and doxycycline empirically; s/p Doxy
-Urine antigen testing negative for Legionella; viral panel negative
-CT C/A/P showed signs of pneumonia superimposed on lung malignancy
-Suspect component of anxiety contributing to her shortness of breath
-On 3 L with SpO2 in the low 90s this morning
Plan
-Continue antibiotics, last day today
-Trend CBC and temperature curve
-Wean oxygen for SpO2 >90% 88 to 94% in context of emphysema
-Continue with DuoNebs as needed
#Metastatic lung cancer
-CT C/A/P without contrast showed likely bronchogenic carcinoma the right lung, adrenal mass, C6 bone lesion
-Patient does have previous smoking history despite stopping 24 years ago, smoked as well
-Pulmonology and oncology following, planning for bronchoscopy with biopsy and tissue diagnosis
-Will need formal staging with PET/CT, possible brain MRI with and without contrast
-Will need to have consideration for PD-1 testing if non-small cell lung cancer noted
-MRI brain with and without contrast did not have signs of metastasis
#Hypercalcemia
-Very likely secondary to metastatic lung cancer, unclear histopathology at this time
-Vitamin D levels were low; TSH normal; iPTH ordered with results pending
-S/p pamidronate; nephrology sent paraprotein workup for multiple myeloma
-Follow-up iPTH levels, SPEP/UPEP + ETHAN, PTHrP levels
-Calcium levels normalized, continue to monitor BMP
#CKD 3
-On arrival had serum creatinine 1.2; last labs in November with creatinine 0.9
-Creatinine level has been fairly stable here, between 1.0 and 1.2
-Monitor daily BMP, avoid nephrotoxin
#T2DM with hyperglycemia
-On arrival blood sugar was 377; Home medications include metformin and glipizide
-Metformin held; continued on glipizide and started on ISS with Accu-Cheks
-Blood sugars in the range of 130s to 200 for the most part since admission
-Continue with current regimen, BG goal 100-200, avoid hypoglycemia
#Hypertension
-Home medication includes losartan, bisoprolol, diltiazem
-No known history of hypertensive systemic disease
-BP currently elevated
-Ordered IV hydralazine as needed
#H/O DVT of RLE
-Home medications include warfarin with INR goal 2�3
-INR up to 3.1 on 6 mg warfarin nightly, reduced to 3 mg for now
-Hold warfarin evening of 08/31 and 09/01 for supratherapeutic INR
-Plan to resume warfarin at 3 mg when INR at goal
#Hypokalemia
-Likely nutritional, provided KCl syrup today
-Continue to trend BMP and replete as needed
DVT prophylaxis: Home warfarin
Diet: Carb controlled
CODE STATUS: full code
The patient's 2 sons (Tyson and Gilmar) were present and I provided them with updates. Stated that they would prefer daily updates if possible. Gilmar's phone number [phone], would like results of tests here prior to giving them to the patient
so that they can be present
Anticipated Discharge: 24 - 48 hours
Subjective/Interval History
-
Date of Service: September 01, 2024
Seen and examined at the bedside. No acute events reported overnight. AFVSS on 2 L of oxygen this morning
INR improved but still elevated at 3.08, above goal
She denies any acute complaints. States her breathing is slightly better today
Objective Data
-
Labs:
Laboratory Results
09/01/24
06:30
WBC 13.3 H
Hgb 10.5 L
Hct 32.4 L
Plt Count 139
PT 31.7 H
INR 3.08
Sodium 138
Potassium 4.3
Chloride 107
Carbon Dioxide 21 L
BUN 37 H
Creatinine 0.9
Glucose 158 H
Calcium 8.3 L
Vital Signs:
Vital Signs
Temp Pulse Resp BP Pulse Ox
97.8 F 74 18 150/64 92
09/01/24 07:00 09/01/24 09:44 09/01/24 07:19 09/01/24 09:44 09/01/24 07:19
I&O
08/31/24 09/01/24 09/02/24
06:59 06:59 06:59
Intake Total 1320 / 1320 960 / 960
Balance 1320 / 1320 960 / 960
Review of Systems
-
History Source: Patient
All other systems: Reviewed and negative
Physical Exam
-
General: Well Developed, No Apparent Distress, Comfortable and Obese
HEENT: Normocephalic, Atraumatic, Moist Mucous Membranes and Anicteric
Respiratory: Clear to Auscultation and Non Labored Respirations; Negative Accessory Resp Muscle Use
Cardiac: Regular Rhythm, S1/S2 and Murmur; Negative Rub or Gallop
GI: Soft, Nontender, Nondistended and Normal Bowel Sounds
Musculoskeletal: No Clubbing, No Cyanosis and No Edema
Skin: Warm, Dry and Normal Turgor; Negative Rash
Neuro: AO x 3 and Nonfocal/Grossly Intact
Psych: Anxious
Data Reviewed
-
Labs: Labs Reviewed by me and Discussed with Nurse
[2024-09-01] MEDS: NOVOLOG FLEXPEN-LOW RESISTANCE 2 UNITS SC (12:38)
[2024-09-01] MEDS: ATIVAN 0.5 MG PO ×2 (13:01→20:37)
[2024-09-01 15:00] VITALS: BP 134/53
[2024-09-01 16:41] LABS: Glucose - Point of Care 264 mg/dl (70-99)
[2024-09-01] MEDS: NOVOLOG FLEXPEN-LOW RESISTANCE 3 UNITS SC (17:38)
[2024-09-01 21:35] LABS: Glucose - Point of Care 295 mg/dl (70-99)
[2024-09-01 23:40] VITALS: BP 131/56
[2024-09-02] MEDS: STERILE WATER FOR INJECTION 10 ML IV (00:23)
[2024-09-02] MEDS: ROCEPHIN 1000 MG IV (00:24)
[2024-09-02 05:40] LABS: INR 3.04; PT 31.4 Sec (11.4-14.6)
[2024-09-02 06:30] LABS: Blood Urea Nitrogen 35 mg/dl (7-17); Calcium 8.4 mg/dl (8.4-10.2); Carbon Dioxide 21 mmol/L (22-30); Chloride 104 mmol/L (98-107); Estimated Creatinine Clearance 51 ml/min; Glucose 197 mg/dl (70-99); Potassium 4.2 mmol/L (3.5-5.1); Sodium 136 mmol/L (135-145); eGFR > 60.00
[2024-09-02 07:30] VITALS: BP 137/77
[2024-09-02 07:35] LABS: Hemoglobin 10.6 g/dL (12.0-16.0); Mean Corp Hgb Conc. 32.1 g/dL (33.0-37.0); Mean Corpuscular Hgb 29.7 pg (27.0-31.0); Mean Corpuscular Volume 92.4 fL (81.0-99.0); Mean Platelet Volume 10.4 fL (7.4-10.4); Platelet Count 135 10^3/uL (130-400); Red Blood Cell Count 3.57 10^6/uL (4.20-5.40); Red Cell Dist. Width 14.3 % (11.5-14.5); White Blood Cell Count 12.4 10^3/uL (4.8-10.8)
[2024-09-02 07:36] LABS: Absolute Neutrophils -Man Diff 8.5 10^3/uL (1.4-6.5); Band Neutrophils 7 % (0-3); Eosinophils 5 % (0-6); Lymphocytes 15 % (20-51); Metamyelocytes 7 % (-); Monocytes 2 % (2-9); Myelocytes 2 % (-); Normal RBC Morphology No; Nucleated Red Blood Cells 1 (-); Platelets Checked Yes; Segmented Neutrophils 62 % (42-75)
[2024-09-02 07:37] LABS: Anisocytosis Slight; Polychromasia 1+; Spherocytes 1+; Total Cells Counted 100
[2024-09-02 08:22] LABS: Glucose - Point of Care 188 mg/dl (70-99)
[2024-09-02] MEDS: MUCINEX 600 MG PO ×2 (08:34→20:53)
[2024-09-02] MEDS: ZEBETA 5 MG PO (08:34)
[2024-09-02] MEDS: TESSALON PERLES 200 MG PO ×2 (08:34→17:44)
[2024-09-02] MEDS: TYLENOL 650 MG PO ×2 (08:34→20:58)
[2024-09-02] MEDS: CARDIZEM CD 240 MG PO (08:35)
[2024-09-02] MEDS: COZAAR 100 MG PO (08:35)
[2024-09-02] MEDS: ZOLOFT 50 MG PO (08:35)
[2024-09-02] MEDS: LIPITOR 20 MG PO (08:36)
[2024-09-02] MEDS: DUONEB 3 ML INH ×3 (08:58→19:43)
[2024-09-02] MEDS: NOVOLOG FLEXPEN-LOW RESISTANCE 1 UNITS SC (09:49)
[2024-09-02] MEDS: PULMICORT 0.5 MG INH ×2 (10:07→19:43)
[2024-09-02] MEDS: DUONEB INH (11:14)
--- NOTE | 2024-09-02 11:48 | CM ---
CM following re: discharge planning.
Reviewed pt's chart, met with pt. Pt's son Gilmar and son Tyson at bedside.
PT and OT continue recommending SNF level of care. Per CM note, a plan is to get the pt to [facility]. Both pt and her sons are aware and they stated that they are awaiting for [facility] to confirm pt's admission. IMM reviewed, placed on chart, pt has a copy.
CM spoke to [facility] senior clinical data coordinator Faraz and she stated she will talk to pt's sons regrading pt's admission. Per Faraz, no confirmation regarding pt's admission made yet.
D/C plan: possibly [facility]. Coordinating pt's admission to [facility] with [facility] admissions department and pt's sons.
CM will follow with discharge plan updates as hospitalization progresses
--- NOTE | 2024-09-02 12:00 | W.PN.HOSP.TC ---
Today's Communication/Plan
-
Monitor vital signs
see plan
Wheezing this morning, added standing DuoNebs and Pulmicort
Repeat chest x-ray with improving pneumonia, does show atelectasis
Discussed with son at bedside and over the phone
Get 3 mg Coumadin tonight
Monitor INR
Assessment / Plan
Assessment / Plan
#Acute hypoxemic respiratory insufficiency
#Community-acquired pneumonia
#Sepsis POA, now resolved
-Chest x-ray with right-sided infiltrate concerning for pneumonia, leukocytosis present
-Has required low levels of oxygen here, does not wear oxygen at baseline
-Was started on IV ceftriaxone and doxycycline empirically; s/p Doxy
-Urine antigen testing negative for Legionella; viral panel negative
-CT C/A/P showed signs of pneumonia superimposed on lung malignancy
-Suspect component of anxiety contributing to her shortness of breath
-On 3 L with SpO2 in the low 90s this morning
Plan
-finished abx
-Trend CBC and temperature curve
-Wean oxygen for SpO2 >90% 88 to 94% in context of emphysema
-Continue with DuoNebs as needed; wheezing, added standing duonebs, inhaled pulmicort
#Metastatic lung cancer
-CT C/A/P without contrast showed likely bronchogenic carcinoma the right lung, adrenal mass, C6 bone lesion
-Patient does have previous smoking history despite stopping 24 years ago, smoked as well
-Pulmonology and oncology following, planning for bronchoscopy with biopsy and tissue diagnosis
-Will need formal staging with PET/CT, brain MRI without any malignancy
-Will need to have consideration for PD-1 testing if non-small cell lung cancer noted
-MRI brain with and without contrast did not have signs of metastasis
#Hypercalcemia
-Very likely secondary to metastatic lung cancer, unclear histopathology at this time
-Vitamin D levels were low; TSH normal; iPTH ordered with results pending
-S/p pamidronate; nephrology sent paraprotein workup for multiple myeloma
-Follow-up iPTH levels, SPEP/UPEP + ETHAN, PTHrP levels
-Calcium levels normalized, continue to monitor BMP
#CKD 3
-On arrival had serum creatinine 1.2; last labs in November with creatinine 0.9
-Creatinine level has been fairly stable here, between 1.0 and 1.2
-Monitor daily BMP, avoid nephrotoxin
#T2DM with hyperglycemia
-On arrival blood sugar was 377; Home medications include metformin and glipizide
-Metformin held; continued on glipizide and started on ISS with Accu-Cheks
-Blood sugars in the range of 130s to 200 for the most part since admission
-Continue with current regimen, BG goal 100-200, avoid hypoglycemia
#Hypertension
-Home medication includes losartan, bisoprolol, diltiazem
-No known history of hypertensive systemic disease
-BP currently elevated
-Ordered IV hydralazine as needed
#H/O DVT of RLE
-Home medications include warfarin with INR goal 2�3
-INR up to 3.04; give 3mg tonite
-Hold warfarin evening of 08/31 and 09/01 for supratherapeutic INR
#Hypokalemia
-Likely nutritional, monitor
-Continue to trend BMP and replete as needed
DVT prophylaxis: Home warfarin
Diet: Carb controlled
CODE STATUS: full code
Dr Tanner Discussed with patient's 2 sons (Tyson and Gilmar) were present and he provided them with updates. Stated that they would prefer daily updates if possible. Gilmar's phone number [phone], would like results of tests here prior to
giving them to the patient so that they can be present
I spent a total of 52 minutes with the patient or on the floor. More than 50% of this time involved counseling and coordination of care.
General: Well Developed, No Apparent Distress, Comfortable and Obese
HEENT: Normocephalic, Atraumatic, Moist Mucous Membranes and Anicteric
Respiratory: Clear to Auscultation and Non Labored Respirations; Negative Accessory Resp Muscle Use
Cardiac: Regular Rhythm, S1/S2 and Murmur; Negative Rub or Gallop
GI: Soft, Nontender, Nondistended and Normal Bowel Sounds
Musculoskeletal: No Clubbing, No Cyanosis and No Edema
Skin: Warm, Dry and Normal Turgor; Negative Rash
Neuro: AO x 3 and Nonfocal/Grossly Intact
Psych: Anxious
Anticipated Discharge: Within 24 hours
Subjective/Interval History
-
Date of Service: September 02, 2024
denies pain
Objective Data
-
Labs:
Laboratory Results
09/02/24
05:21
WBC 12.4 H
Hgb 10.6 L
Hct 33.0 L
Plt Count 135
PT 31.4 H
INR 3.04
Sodium 136
Potassium 4.2
Chloride 104
Carbon Dioxide 21 L
BUN 35 H
Creatinine 0.9
Glucose 197 H
Calcium 8.4
Vital Signs:
Vital Signs
Temp Pulse Resp BP Pulse Ox
99.1 F 75 20 137/77 92
09/02/24 07:30 09/02/24 10:09 09/02/24 10:09 09/02/24 08:35 09/02/24 10:09
I&O
09/01/24 09/02/24 09/03/24
06:59 06:59 06:59
Intake Total 960 / 960 240 / 240
Balance 960 / 960 240 / 240
[2024-09-02 12:23] LABS: Glucose - Point of Care 302 mg/dl (70-99)
[2024-09-02] MEDS: NOVOLOG FLEXPEN-LOW RESISTANCE 4 UNITS SC (13:01)
[2024-09-02] MEDS: ATIVAN 0.5 MG PO (14:11)
[2024-09-02 16:00] VITALS: BP 111/65
[2024-09-02 17:35] LABS: Glucose - Point of Care 271 mg/dl (70-99)
[2024-09-02] MEDS: DECADRON 4 MG IV (17:44)
[2024-09-02] MEDS: COUMADIN 3 MG PO (17:45)
[2024-09-02] MEDS: NOVOLOG FLEXPEN-LOW RESISTANCE 3 UNITS SC (17:50)
--- NOTE | 2024-09-02 19:00 | PTCARENOTE ---
pt SOB and wheezing despite nebulizer treatment. pulse ox 87-88% on 2L, increased O2 to 4L, sating 92%. MD notified. IV steriods ordered. head of chair elevated and pt instructed to breath through nasal cannula. Pt appears more comfortable. Able to
ambulate with assistance back to bed.
[2024-09-02 22:06] LABS: Glucose - Point of Care 333 mg/dl (70-99)
[2024-09-02 23:38] VITALS: BP 146/65
[2024-09-03] MEDS: DECADRON 4 MG IV ×3 (01:08→17:59)
[2024-09-03 06:34] LABS: Hemoglobin 10.4 g/dL (12.0-16.0); Mean Corp Hgb Conc. 31.5 g/dL (33.0-37.0); Mean Corpuscular Hgb 29.1 pg (27.0-31.0); Mean Corpuscular Volume 92.4 fL (81.0-99.0); Mean Platelet Volume 10.1 fL (7.4-10.4); Platelet Count 129 10^3/uL (130-400); Red Blood Cell Count 3.57 10^6/uL (4.20-5.40); White Blood Cell Count 11.9 10^3/uL (4.8-10.8)
[2024-09-03 06:35] LABS: INR 2.52; PT 27.2 Sec (11.4-14.6)
[2024-09-03 06:51] LABS: Blood Urea Nitrogen 30 mg/dl (7-17); Calcium 8.2 mg/dl (8.4-10.2); Carbon Dioxide 22 mmol/L (22-30); Chloride 102 mmol/L (98-107); Estimated Creatinine Clearance 65 ml/min; Glucose 268 mg/dl (70-99); Potassium 4.6 mmol/L (3.5-5.1); Sodium 135 mmol/L (135-145); eGFR > 60.00
[2024-09-03] MEDS: PULMICORT 0.5 MG INH ×2 (07:52→19:18)
[2024-09-03] MEDS: DUONEB 3 ML INH ×4 (07:52→19:18)
[2024-09-03 07:58] VITALS: BP 156/72
[2024-09-03 08:00] LABS: Absolute Neutrophils -Man Diff 8.5 10^3/uL (1.4-6.5); Band Neutrophils 17 % (0-3); Eosinophils 2 % (0-6); Lymphocytes 11 % (20-51); Metamyelocytes 9 % (-); Monocytes 2 % (2-9); Myelocytes 4 % (-); Segmented Neutrophils 55 % (42-75)
[2024-09-03 08:01] LABS: Platelets Checked Yes
[2024-09-03 08:03] LABS: Normal RBC Morphology No; Polychromasia Slight; Total Cells Counted 100
[2024-09-03 08:17] LABS: Glucose - Point of Care 266 mg/dl (70-99)
--- NOTE | 2024-09-03 09:19 | W.PN.ONC2 ---
Today's Communication / Plan
-
no further inpatient medical oncology recommendations - will see outpatient for treatment planning once path is available
medical oncology will sign off, please reach out with any questions or concerns
Impression
Impression
acute hypoxic respiratory failure on NC
hypercalcemia of malignancy -resolved s/p pamidronate
suspected metastatic lung cancer
CAP completed abx
headache, MRI head - non-specific dural thickening unlikely met
Plan
Plan
Pulmonary planning OP follow up for potential bronch
Will plan outpatient oncology f/u to review path, order add'l staging studies (PET), and consider options for treatment - discussed with pt and 2 sons, Tyson and Gilmar, at bedside
Subjective/Objective
Subjective
no new complaints
4L NC
Vital Signs:
Vital Signs
Temp Pulse Resp BP Pulse Ox
97.7 F 83 18 156/72 95
09/03/24 07:58 09/03/24 07:58 09/03/24 07:58 09/03/24 07:58 09/03/24 07:58
Lab Results:
Laboratory Data
WBC 11.9 10^3/uL (4.8-10.8) H 09/03/24 05:56
Hgb 10.4 g/dL (12.0-16.0) L 09/03/24 05:56
Plt Count 129 10^3/uL (130-400) L 09/03/24 05:56
PT 27.2 Sec (11.4-14.6) H 09/03/24 05:56
INR 2.52 09/03/24 05:56
APTT 50.2 Sec (23.4-35.0) H 08/29/24 08:14
eGFR > 60.00 09/03/24 05:56
Physical Exam
HEENT: No Jaundice
Cardiology: Normal Sinus Rhythm
Pulmonary: Other (decreased BS in right mid to lower lung guerra )
Extremities: No Edema
Neuro: Non Focal
[2024-09-03] MEDS: NOVOLOG FLEXPEN-LOW RESISTANCE 3 UNITS SC (10:16)
[2024-09-03] MEDS: ATIVAN 0.5 MG PO ×2 (10:17→19:13)
[2024-09-03] MEDS: CARDIZEM CD 240 MG PO (10:17)
[2024-09-03] MEDS: ZOLOFT 50 MG PO (10:17)
[2024-09-03] MEDS: COZAAR 100 MG PO (10:17)
[2024-09-03] MEDS: ZEBETA 5 MG PO (10:17)
[2024-09-03] MEDS: MUCINEX 600 MG PO ×2 (10:17→20:35)
[2024-09-03] MEDS: LIPITOR 20 MG PO (10:17)
--- NOTE | 2024-09-03 10:46 | CM ---
Addendum entered by Jack Xiong 09/04/24 09:30:
Late entry. CM received a phone call from [facility] costume director and she stated that pt's family member Dayna Stein called her and asked for information regarding Medicaid. Per web art director they do not have a terminal block assembler care bed
available and at that point a referral has been denied.
Original Note:
CM following re: discharge planning.
Reviewed pt's chart, met with pt and pt's sons Gilmar and Tyson at bedside.
CM spoke to [facility] group sales coordinator Faraz late afternoon yesterday and she stated after meeting with pt's son Gilmar they decided to deny a referral.
CM discussed it with pt's sons and pt's son Gilmar expressed to me his very unhappy feelings regarding [facility] denied the admission. He stated: 'I met with Faraz yesterday and she did not tell me about denial, I called her late yesterday and today and
she did not pharmacy picking technician the phone'. Emotional support offered and provided.
Pt's son requested [facility] or [facility]. From [facility] both [facility] and [facility] offered a bed and pt's sons preferred [facility].
CM spoke to [facility] costume director Demi and she confirmed that pt will be accepted for a short term rehab when medically stable and based on bed availability on the day of discharge.
[facility] nursing report: [phone]
Discharge instructions fax: [phone]
Per MD, pt is not ready for discharge today.
D/C plan: [facility] for a short term rehab when pt is medically stable and based on bed availability on the day of discharge.
CM will follow to assist pt with discharge to [facility] for a short term rehab.
[2024-09-03 12:10] VITALS: PULSE 80; PULSE 83; O2SAT 93
[2024-09-03 12:16] LABS: Glucose - Point of Care 406 mg/dl (70-99)
--- NOTE | 2024-09-03 12:44 | W.PN.HOSP.TC ---
Today's Communication/Plan
-
Monitor vital signs see plan
Continue with steroids, nebs
Pulmonary evaluation
Wean oxygen as tolerated
Hyperglycemic likely secondary to steroids, start insulin
Discussed with son over the phone
Assessment / Plan
Assessment / Plan
#Acute hypoxemic respiratory insufficiency
#Community-acquired pneumonia
#Sepsis POA, now resolved
-Chest x-ray with right-sided infiltrate concerning for pneumonia, leukocytosis present
-Has required low levels of oxygen here, does not wear oxygen at baseline
-Was started on IV ceftriaxone and doxycycline empirically; s/p Doxy
-Urine antigen testing negative for Legionella; viral panel negative
-CT C/A/P showed signs of pneumonia superimposed on lung malignancy
-Suspect component of anxiety contributing to her shortness of breath
-On 4 L with SpO2 in the low 90s this morning
Plan
-finished abx
-Trend CBC and temperature curve
-Wean oxygen for SpO2 >90% 88 to 94% in context of emphysema
-Continue with DuoNebs as needed; wheezing, added standing duonebs, inhaled pulmicort
repeat CXR 09/02 with improving PNA, atelectasis
#Metastatic lung cancer
-CT C/A/P without contrast showed likely bronchogenic carcinoma the right lung, adrenal mass, C6 bone lesion
-Patient does have previous smoking history despite stopping 24 years ago, smoked as well
-Pulmonology and oncology following, planning for bronchoscopy with biopsy and tissue diagnosis
-Will need formal staging with PET/CT, brain MRI without any malignancy
-Will need to have consideration for PD-1 testing if non-small cell lung cancer noted
-MRI brain with and without contrast did not have signs of metastasis
#Hypercalcemia
-Very likely secondary to metastatic lung cancer, unclear histopathology at this time
-Vitamin D levels were low; TSH normal; iPTH ordered with results pending
-S/p pamidronate; nephrology sent paraprotein workup for multiple myeloma
-Follow-up iPTH levels, SPEP/UPEP + ETHAN, PTHrP levels
-Calcium levels normalized, continue to monitor BMP
#CKD 3
-On arrival had serum creatinine 1.2; last labs in November with creatinine 0.9
-Creatinine level has been fairly stable here, between 1.0 and 1.2
-Monitor daily BMP, avoid nephrotoxin
#T2DM with hyperglycemia
-On arrival blood sugar was 377; Home medications include metformin and glipizide
-Metformin held; continued on glipizide and started on ISS with Accu-Cheks
sugar now uncontrolled, on steroids. Start long-acting short acting insulin
#Hypertension
-Home medication includes losartan, bisoprolol, diltiazem
-No known history of hypertensive systemic disease
-BP currently elevated
-Ordered IV hydralazine as needed
#H/O DVT of RLE
-Home medications include warfarin with INR goal 2�3
-INR up to 2.5;start 6mg Qpm
-Hold warfarin evening of 08/31 and 09/01 for supratherapeutic INR
#Hypokalemia
-Likely nutritional, monitor
-Continue to trend BMP and replete as needed
DVT prophylaxis: Home warfarin
Diet: Carb controlled
CODE STATUS: full code
Dr Peters Discussed with patient's 2 sons (Tyson and Gilmar) were present and he provided them with updates. Stated that they would prefer daily updates if possible. Gilmar's phone number [phone], would like results of tests here prior to
giving them to the patient so that they can be present
I spent a total of 53 minutes with the patient or on the floor. More than 50% of this time involved counseling and coordination of care.
General: Well Developed, No Apparent Distress, Comfortable and Obese
HEENT: Normocephalic, Atraumatic, Moist Mucous Membranes and Anicteric
Respiratory: Clear to Auscultation and Non Labored Respirations; Negative Accessory Resp Muscle Use
Cardiac: Regular Rhythm, S1/S2 and Murmur; Negative Rub or Gallop
GI: Soft, Nontender, Nondistended and Normal Bowel Sounds
Musculoskeletal: No Clubbing, No Cyanosis and No Edema
Skin: Warm, Dry and Normal Turgor; Negative Rash
Neuro: AO x 3 and Nonfocal/Grossly Intact
Psych: Anxious
Anticipated Discharge: 24 - 48 hours
Subjective/Interval History
-
Date of Service: September 03, 2024
denies chest pain
Objective Data
-
Labs:
Laboratory Results
09/03/24 09/03/24
05:56 12:30
WBC 11.9 H
Hgb 10.4 L
Hct 33.0 L
Plt Count 129 L
PT 27.2 H
INR 2.52
Sodium 135
Potassium 4.6
Chloride 102
Carbon Dioxide 22
BUN 30 H
Creatinine 0.7
Glucose 268 H Pending
Calcium 8.2 L
Vital Signs:
Vital Signs
Temp Pulse Resp BP Pulse Ox
97.7 F 83 18 156/72 95
09/03/24 07:58 09/03/24 07:58 09/03/24 07:58 09/03/24 07:58 09/03/24 07:58
I&O
09/02/24 09/03/24 09/04/24
06:59 06:59 06:59
Intake Total 240 / 240 840 / 840
Balance 240 / 240 840 / 840
[2024-09-03 12:56] LABS: Glucose 411 mg/dl (70-99)
[2024-09-03] MEDS: NOVOLOG FLEXPEN-LOW RESISTANCE SC (12:59)
[2024-09-03] MEDS: NOVOLIN R 0.05 UNITS SC (14:04)
[2024-09-03 14:08] LABS: Glucose - Point of Care 425 mg/dl (70-99)
[2024-09-03 14:41] LABS: Glucose 433 mg/dl (70-99)
[2024-09-03] MEDS: NOVOLOG FLEXPEN 8 UNITS SC ×2 (14:44→21:30)
[2024-09-03 15:05] VITALS: BP 124/49
[2024-09-03] MEDS: TYLENOL 650 MG PO (16:20)
[2024-09-03 16:59] LABS: Glucose - Point of Care 464 mg/dl (70-99)
[2024-09-03 17:48] LABS: Glucose 438 mg/dl (70-99)
[2024-09-03] MEDS: NOVOLOG FLEXPEN-LOW RESISTANCE 6 UNITS SC (17:57)
[2024-09-03] MEDS: NOVOLOG FLEXPEN 4 UNITS SC (17:58)
[2024-09-03] MEDS: COUMADIN 6 MG PO (17:59)
[2024-09-03 20:18] LABS: Glucose - Point of Care 430 mg/dl (70-99)
[2024-09-03] MEDS: ULTRAM 25 MG PO (21:04)
[2024-09-03 21:09] LABS: Glucose 444 mg/dl (70-99)
[2024-09-03 21:27] LABS: Blood Urea Nitrogen 34 mg/dl (7-17); Calcium 8.2 mg/dl (8.4-10.2); Carbon Dioxide 21 mmol/L (22-30); Chloride 102 mmol/L (98-107); Estimated Creatinine Clearance 57 ml/min; Potassium 4.3 mmol/L (3.5-5.1); Sodium 131 mmol/L (135-145); eGFR > 60.00
[2024-09-03] MEDS: LANTUS 0.12 UNITS SC (21:31)
--- NOTE | 2024-09-03 22:50 | PTCARENOTE ---
1999 accucheck read HI. Venous glucose sent along with BMP. House LION TRAINER notified of results when received. Pt given novolog and lantus. Pt also c/o 810 R shoulder pain. Discussed with LION TRAINER and pt med with tramadol. Will continue to monitor.
[2024-09-03 23:47] LABS: Glucose - Point of Care 445 mg/dl (70-99)
[2024-09-03 23:50] VITALS: BP 165/72
[2024-09-04 00:31] LABS: Glucose 422 mg/dl (70-99)
[2024-09-04] MEDS: NOVOLOG FLEXPEN 15 UNITS SC (00:53)
[2024-09-04] MEDS: DECADRON 4 MG IV ×3 (02:05→21:55)
[2024-09-04 02:58] LABS: Glucose - Point of Care 342 mg/dl (70-99)
[2024-09-04] MEDS: ULTRAM 25 MG PO ×3 (04:09→20:07)
--- NOTE | 2024-09-04 04:48 | PTCARENOTE ---
Repeat accucheck 2 hours after novolog given read HI. Venous glucose 422. Pt given 15 units novolog. Accucheck 2 hours after novolog was 342.
[2024-09-04] MEDS: DUONEB 3 ML INH ×3 (06:08→19:44)
[2024-09-04] MEDS: PULMICORT 0.5 MG INH ×2 (06:08→19:44)
[2024-09-04 06:10] LABS: Hematocrit 32.2 % (37.0-47.0); Hemoglobin 10.7 g/dL (12.0-16.0); Mean Corp Hgb Conc. 33.2 g/dL (33.0-37.0); Mean Corpuscular Hgb 29.9 pg (27.0-31.0); Mean Corpuscular Volume 89.9 fL (81.0-99.0); Mean Platelet Volume 9.9 fL (7.4-10.4); Platelet Count 142 10^3/uL (130-400); Red Blood Cell Count 3.58 10^6/uL (4.20-5.40); Red Cell Dist. Width 13.8 % (11.5-14.5); White Blood Cell Count 14.7 10^3/uL (4.8-10.8)
[2024-09-04 06:29] LABS: INR 2.62
[2024-09-04 07:08] LABS: Blood Urea Nitrogen 30 mg/dl (7-17); Calcium 8.2 mg/dl (8.4-10.2); Carbon Dioxide 22 mmol/L (22-30); Chloride 104 mmol/L (98-107); Estimated Creatinine Clearance 65 ml/min; Glucose 215 mg/dl (70-99); Sodium 136 mmol/L (135-145); eGFR > 60.00
[2024-09-04 07:10] VITALS: BP 190/83
[2024-09-04 07:16] LABS: Potassium 4.4 mmol/L (3.5-5.1)
[2024-09-04 07:19] LABS: Segmented Neutrophils 57 % (42-75)
[2024-09-04 07:20] LABS: Absolute Neutrophils -Man Diff 9.9 10^3/uL (1.4-6.5); Band Neutrophils 11 % (0-3); Lymphocytes 17 % (20-51); Monocytes 9 % (2-9); Myelocytes 4 % (-)
[2024-09-04 07:21] LABS: Normal RBC Morphology Yes; Platelets Checked Yes; Total Cells Counted 100
[2024-09-04 07:45] LABS: Glucose - Point of Care 256 mg/dl (70-99)
[2024-09-04] MEDS: COZAAR 100 MG PO (07:45)
[2024-09-04] MEDS: MUCINEX 600 MG PO ×2 (07:45→19:58)
[2024-09-04] MEDS: ATIVAN 0.5 MG PO ×2 (07:45→15:58)
[2024-09-04] MEDS: CARDIZEM CD 240 MG PO (07:45)
[2024-09-04] MEDS: TYLENOL 650 MG PO ×2 (07:45→15:58)
[2024-09-04] MEDS: NOVOLOG FLEXPEN 4 UNITS SC (07:46)
[2024-09-04] MEDS: NOVOLOG FLEXPEN-LOW RESISTANCE 3 UNITS SC (07:46)
[2024-09-04] MEDS: LIPITOR 20 MG PO (07:46)
[2024-09-04] MEDS: ZEBETA 5 MG PO (07:46)
[2024-09-04] MEDS: ZOLOFT 50 MG PO (07:46)
[2024-09-04 09:00] VITALS: BP 166/76
--- NOTE | 2024-09-04 09:52 | W.PN.PUL.V3 ---
Today's Communication / Plan
-
Agree with Decadron
Nebulizers
Mucolytic's
Wean oxygen
Outpatient pulmonary follow-up
Assessment
-
Patient is a 79-year-old female with previous history of diabetes, hyperlipidemia, right lower extremity DVT on Coumadin presenting to ER with generalized weakness, cough complaints, left-sided flank pain over the past week. She had alerted EMS
today because of feeling of weakness, could not get up from commode and felt her legs give way. She denies any shortness of breath with this episode but was noted to be hypoxemic on arrival to ER. She was hypertensive with systolic BP of 200 and
tachycardia of 123. Serum calcium was very elevated at 15.2 which prompted malignancy w/u. Chest x-ray demonstrated possible right basilar disease, follow-up CT abdomen pelvis indicating postobstructive mass versus pneumonia at right base. We are
consulted for eval.
Generalized weakness
Nonproductive cough
Abnormal CT, right sided postobstructive pneumonia versus mass
Suspect widely metastatic disease based on CT (liver, bone, adrenal)
Community-acquired pneumonia
Compressive atelectasis
Hypertensive urgency
Tachycardia
Hypercalcemia
Suspect COPD with mild acute exacerbation
Emphysema noted on CT
Conditions present prior to admission:
Varicose veins
Non-pressure chronic ulcer of R ankle
Diabetes
Hyperlipidemia
Right lower extremity DVT on Coumadin
COPD
Former smoker, 30 pack years, quit 24 years ago
Obesity BMI 34
Plan
Respiratory status still somewhat tenuous
Undoubtedly has underlying emphysema/COPD with [id number] smoking history
Supplemental oxygen as needed
Continue nebulizers
Mucolytic's
Steroids-Decadron initiated
Chest x-ray 09/02/2024-slight improvement in the aeration of the right lower lobe
Follow radiographically-until clearing
Check cultures
Finished antibiotics
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
Outpatient PET scan
Monitor hypercalcemia
Smoking history noted--quit 24 years ago
Smoking cessation continued
DVT prophylaxis-on Coumadin
Nutrition
Physical therapy
Outpatient pulmonary [id number], 6-minute walk test, radiographic follow-up, potential biopsy
Diagnostic Data
Chest X-Ray: 08/25/24- New findings concerning for right-sided pneumonia.
09/21/15- No active disease.
CT Scan: CAP 08/27/24- Soft tissue fullness in the right hilar and infrahilar region with abrupt cut off of the bronchus intermedius. Findings likely represent a combination of infected neoplasm and postobstructive atelectasis within the right
middle and right lower lobe. Lymphadenopathy within the chest, which is likely neoplastic lymphadenopathy. Small to moderate right pleural effusion.
Patchy parenchymal opacity within the right upper lobe of the lung, which is likely patchy pneumonia. Patchy parenchymal opacity within the posterior aspect of the left lower lobe of the lung, most likely atelectasis, although pneumonia is also
possible. Minimal left pleural effusion. Changes of emphysema in the visualized upper lungs. Cholelithiasis. Mild fatty infiltration liver. Low-density lesion within the anterior left lobe of the liver, nonspecific, but concerning for hepatic
metastatic disease. 3 cm mass arising in the right adrenal gland, and CT features are most suggestive of adenoma or myelolipoma. However, given the rest of the findings on this examination, metastatic disease not completely excluded. Lucent lesions
within the skeleton as described, and raises concern for bony metastatic disease, especially lesion within C6. As warranted, further evaluation with nuclear medicine bone scan could be considered. As warranted, further evaluation with CT examination
with intravenous contrast may be helpful.
Subjective Data
-
Date of Service:
Date of Service: September 04, 2024
Chief Complaint: Pulmonary Follow Up and Dyspnea Follow Up
Subjective:
Complains of some shortness of breath, some wheezing, no chest pain or abdominal pain
Review of Systems
General: Other (Per HPI)
Objective Data
Data Reviewed
Vital Signs / I&O:
Vital Signs
Temp Pulse Resp BP Pulse Ox
97.8 F 81 17 166/76 91
09/04/24 07:10 09/04/24 09:00 09/04/24 07:10 09/04/24 09:00 09/04/24 07:10
Intake and Output
09/03/24 09/04/24 09/05/24
06:59 06:59 06:59
Intake Total 840 / 840 1290 / 1290
Balance 840 / 840 1290 / 1290
SaO2: 91
Nasal Cannula flow liters per minute: 4
Physical Exam
General: Respiratory Distress (n), Comfortable and Other (NAD)
HEENT: Normocephalic, Anicteric and Moist Mucous Membranes
Cardiovascular: Regular Rhythm
Respiratory: Wheeze (Few expiratory), Non-Labored Respirations, Accessory Resp Muscle Use (n) and Stridor (n)
GI: Soft, Non Distended and Non Tender
Neurology: Awake, Alert and No Motor Deficits
Skin: Warm, Good Color and Cyanosis (n)
Labs/Micro/Reports
Lab Data
09/04/24 05:56
09/04/24 05:56
Laboratory Results
09/04/24
05:56
PT 28.0 H
INR 2.62
Microbiology
08/29/24 13:10 Feces/Stool Salmonella/Shigella Culture - Final
No Salmonella, Shigella, Aeromonas or Plesiomonas species
isolated.
08/29/24 13:10 Feces/Stool Campylobacter Culture - Final
No Campylobacter species isolated.
08/29/24 13:10 Feces/Stool Shiga Toxin Test - Final
No E. coli Shiga Toxin 1 or 2 detected.
[2024-09-04 10:47] VITALS: BP 152/69
[2024-09-04 11:48] LABS: Glucose - Point of Care 277 mg/dl (70-99)
--- NOTE | 2024-09-04 11:51 | W.PN.HOSP.TC ---
Today's Communication/Plan
-
Monitor vital signs
See plan
Wean oxygen as tolerated
Decrease Decadron to 4 every 12
Continue with nebs
Discussed with son over the phone
Titrate insulin
Assessment / Plan
Assessment / Plan
#Acute hypoxemic respiratory insufficiency
#Community-acquired pneumonia
#Sepsis POA, now resolved
-Chest x-ray with right-sided infiltrate concerning for pneumonia, leukocytosis present
-Has required low levels of oxygen here, does not wear oxygen at baseline
-Was started on IV ceftriaxone and doxycycline empirically; s/p Doxy
-Urine antigen testing negative for Legionella; viral panel negative
-CT C/A/P showed signs of pneumonia superimposed on lung malignancy
-Suspect component of anxiety contributing to her shortness of breath
-On 4 L O2; wean o2 as tolerated
Plan
-finished abx
-Trend CBC and temperature curve
-Wean oxygen for SpO2 >90% 88 to 92% in context of emphysema
-Continue with DuoNebs as needed; wheezing, added standing duonebs, inhaled pulmicort
repeat CXR 09/02 with improving PNA, atelectasis
started decadron; wean to 4Q12
#Metastatic lung cancer
-CT C/A/P without contrast showed likely bronchogenic carcinoma the right lung, adrenal mass, C6 bone lesion
-Patient does have previous smoking history despite stopping 24 years ago, smoked as well
-Pulmonology and oncology following, planning for bronchoscopy with biopsy and tissue diagnosis
-Will need formal staging with PET/CT, brain MRI without any malignancy
-Will need to have consideration for PD-1 testing if non-small cell lung cancer noted
-MRI brain with and without contrast did not have signs of metastasis
#Hypercalcemia
-Very likely secondary to metastatic lung cancer, unclear histopathology at this time
-Vitamin D levels were low; TSH normal; iPTH ordered with results pending
-S/p pamidronate; nephrology sent paraprotein workup for multiple myeloma
-Follow-up iPTH levels, SPEP/UPEP + ETHAN, PTHrP levels
-Calcium levels normalized, continue to monitor BMP
#CKD 3
-On arrival had serum creatinine 1.2; last labs in November with creatinine 0.9
-Creatinine level has been fairly stable here, between 1.0 and 1.2
-Monitor daily BMP, avoid nephrotoxin
#T2DM with hyperglycemia
-On arrival blood sugar was 377; Home medications include metformin and glipizide
-Metformin held; continued on glipizide and started on ISS with Accu-Cheks
sugar now uncontrolled, on steroids. Started long-acting short acting insulin
#Hypertension
-Home medication includes losartan, bisoprolol, diltiazem
-No known history of hypertensive systemic disease
-BP currently elevated
-Ordered IV hydralazine as needed
#H/O DVT of RLE
-Home medications include warfarin with INR goal 2�3
-INR up to 2.6;started 6mg Qpm
-Held warfarin evening of 08/31 and 09/01 for supratherapeutic INR
#Hypokalemia
-Likely nutritional, monitor
-Continue to trend BMP and replete as needed
DVT prophylaxis: Home warfarin
Diet: Carb controlled
CODE STATUS: full code
Dr Peters Discussed with patient's 2 sons (Tyson and Gilmar) were present and he provided them with updates. Stated that they would prefer daily updates if possible. Gilmar's phone number [phone], would like results of tests here prior to
giving them to the patient so that they can be present
I spent a total of 51 minutes with the patient or on the floor. More than 50% of this time involved counseling and coordination of care.
General: Well Developed, No Apparent Distress, Comfortable and Obese
HEENT: Normocephalic, Atraumatic, Moist Mucous Membranes and Anicteric
Respiratory: Clear to Auscultation and Non Labored Respirations; Negative Accessory Resp Muscle Use
Cardiac: Regular Rhythm, S1/S2 and Murmur; Negative Rub or Gallop
GI: Soft, Nontender, Nondistended and Normal Bowel Sounds
Musculoskeletal: No Clubbing, No Cyanosis and No Edema
Skin: Warm, Dry and Normal Turgor; Negative Rash
Neuro: AO x 3 and Nonfocal/Grossly Intact
Psych: Anxious
Anticipated Discharge: 24 - 48 hours
Subjective/Interval History
-
Date of Service: September 04, 2024
denies nausea
Objective Data
-
Labs:
Laboratory Results
09/03/24 09/04/24
23:55 05:56
WBC 14.7 H
Hgb 10.7 L
Hct 32.2 L
Plt Count 142
PT 28.0 H
INR 2.62
Sodium 136
Potassium 4.4
Chloride 104
Carbon Dioxide 22
BUN 30 H
Creatinine 0.7
Glucose 422 H 215 H
Calcium 8.2 L
Vital Signs:
Vital Signs
Temp Pulse Resp BP Pulse Ox
97.8 F 78 15 152/69 92
09/04/24 07:10 09/04/24 11:12 09/04/24 11:12 09/04/24 10:47 09/04/24 11:12
I&O
09/03/24 09/04/24 09/05/24
06:59 06:59 06:59
Intake Total 840 / 840 1290 / 1290
Balance 840 / 840 1290 / 1290
[2024-09-04] MEDS: NOVOLOG FLEXPEN 7 UNITS SC ×2 (12:08→17:04)
[2024-09-04] MEDS: NOVOLOG FLEXPEN-LOW RESISTANCE 10 UNITS SC (12:08)
[2024-09-04 15:13] VITALS: BP 157/70
[2024-09-04] MEDS: DUONEB INH (15:23)
[2024-09-04 16:26] LABS: Glucose - Point of Care 381 mg/dl (70-99)
[2024-09-04] MEDS: COUMADIN 6 MG PO (17:04)
[2024-09-04] MEDS: NOVOLOG FLEXPEN-LOW RESISTANCE 5 UNITS SC (17:04)
[2024-09-04] MEDS: TESSALON PERLES 200 MG PO (17:15)
--- NOTE | 2024-09-04 17:59 | CM ---
Received call from patient's son. He stated that that he is upset due to the denial of both [facility] and [facility] patient. He felt that his calling trying to obtain information from these facilities about LTC was the catalyst for the
denial at [facility] however the goal is still short term rehab. Provided emotional support and advised patient's son that patient will be transferred for rehab as she is unable to return home and that will be handled by CM staff as there is an
established protocol and rapport, between the hospital and facilities. He stated that patient's goal is still to do rehab, return home and then determine what course to take regarding her treatment once she knows more about her new dx.
Placed a call to Faraz in admissions at [facility] to revisit referral. She stated that she may have some beds on Monday and will take a look at referral again.
Placed a call to Demi in admissions at [facility] however had to leave a voice mail.
Patient updated and made aware that it looks like other facilities have offered acceptance and CM will continue to send referrals to facilities that family chooses until bed is secured. He expressed relief.
Plan: Case mangement will continue to follow and assist with discharge planning. SNF when stable and bed secured.
[2024-09-04 21:33] LABS: Glucose - Point of Care 391 mg/dl (70-99)
[2024-09-04] MEDS: LANTUS 0.18 UNITS SC (21:55)
[2024-09-04 23:30] VITALS: BP 162/81
[2024-09-05] MEDS: APRESOLINE 10 MG IV (00:28)
[2024-09-05] MEDS: TYLENOL 650 MG PO ×2 (04:55→20:34)
[2024-09-05] MEDS: ATIVAN 0.5 MG PO ×3 (05:07→22:02)
[2024-09-05 07:03] LABS: PT 32.3 Sec (11.4-14.6)
[2024-09-05 07:16] LABS: Blood Urea Nitrogen 34 mg/dl (7-17); Calcium 7.9 mg/dl (8.4-10.2); Carbon Dioxide 23 mmol/L (22-30); Chloride 102 mmol/L (98-107); Estimated Creatinine Clearance 76 ml/min; Glucose 326 mg/dl (70-99); Potassium 4.3 mmol/L (3.5-5.1); Sodium 133 mmol/L (135-145); eGFR > 60.00
[2024-09-05 07:25] LABS: Hematocrit 31.9 % (37.0-47.0); Hemoglobin 10.9 g/dL (12.0-16.0); Mean Corp Hgb Conc. 34.2 g/dL (33.0-37.0); Mean Corpuscular Hgb 30.4 pg (27.0-31.0); Mean Corpuscular Volume 88.9 fL (81.0-99.0); Platelet Count 130 10^3/uL (130-400); Red Blood Cell Count 3.59 10^6/uL (4.20-5.40); Red Cell Dist. Width 13.9 % (11.5-14.5); White Blood Cell Count 14.8 10^3/uL (4.8-10.8)
[2024-09-05 07:30] VITALS: BP 169/86
[2024-09-05] MEDS: PULMICORT INH (07:40)
[2024-09-05] MEDS: DUONEB INH (07:40)
[2024-09-05 08:05] LABS: Glucose - Point of Care 318 mg/dl (70-99)
[2024-09-05] MEDS: PULMICORT 0.5 MG INH ×2 (08:09→19:15)
[2024-09-05] MEDS: DUONEB 3 ML INH ×4 (08:10→19:15)
[2024-09-05] MEDS: ZEBETA 5 MG PO (08:59)
[2024-09-05] MEDS: GLUCOTROL 2.5 MG PO (08:59)
[2024-09-05] MEDS: COZAAR 100 MG PO (08:59)
[2024-09-05] MEDS: MUCINEX 600 MG PO ×2 (08:59→20:34)
[2024-09-05] MEDS: CARDIZEM CD 240 MG PO (08:59)
[2024-09-05] MEDS: LIPITOR 20 MG PO (09:00)
[2024-09-05] MEDS: ZOLOFT 50 MG PO (09:00)
[2024-09-05] MEDS: NOVOLOG FLEXPEN-LOW RESISTANCE 4 UNITS SC ×3 (09:01→17:39)
[2024-09-05] MEDS: NOVOLOG FLEXPEN 7 UNITS SC (09:28)
[2024-09-05 10:08] LABS: Absolute Neutrophils -Man Diff 11.6 10^3/uL (1.4-6.5); Band Neutrophils 12 % (0-3); Lymphocytes 12 % (20-51); Metamyelocytes 3 % (-); Monocytes 3 % (2-9); Segmented Neutrophils 67 % (42-75)
[2024-09-05 10:09] LABS: Myelocytes 3 % (-); Normal RBC Morphology Yes; Platelets Checked Yes; Total Cells Counted 100; Toxic Granulation 1+
--- NOTE | 2024-09-05 10:23 | W.PN.PUL.V3 ---
Today's Communication / Plan
-
Wean oxygen
Decadron
Nebulizers
Outpatient pulmonary follow-up
Assessment
-
Patient is a 79-year-old female with previous history of diabetes, hyperlipidemia, right lower extremity DVT on Coumadin presenting to ER with generalized weakness, cough complaints, left-sided flank pain over the past week. She had alerted EMS
today because of feeling of weakness, could not get up from commode and felt her legs give way. She denies any shortness of breath with this episode but was noted to be hypoxemic on arrival to ER. She was hypertensive with systolic BP of 200 and
tachycardia of 123. Serum calcium was very elevated at 15.2 which prompted malignancy w/u. Chest x-ray demonstrated possible right basilar disease, follow-up CT abdomen pelvis indicating postobstructive mass versus pneumonia at right base. We are
consulted for eval.
Generalized weakness
Nonproductive cough
Abnormal CT, right sided postobstructive pneumonia versus mass
Suspect widely metastatic disease based on CT (liver, bone, adrenal)
Community-acquired pneumonia
Compressive atelectasis
Hypertensive urgency
Tachycardia
Hypercalcemia
Suspect COPD with mild acute exacerbation
Emphysema noted on CT
Conditions present prior to admission:
Varicose veins
Non-pressure chronic ulcer of R ankle
Diabetes
Hyperlipidemia
Right lower extremity DVT on Coumadin
COPD
Former smoker, 30 pack years, quit 24 years ago
Obesity BMI 34
Plan
Respiratory status still somewhat tenuous
Undoubtedly has underlying emphysema/COPD with [id number] smoking history
Supplemental oxygen as needed-currently on 3.5 L
Continue nebulizers
Mucolytic's
Steroids-Decadron initiated-4 mg IV every 12 hours-begin to reduce in the next 24 hours
Chest x-ray 09/02/2024-slight improvement in the aeration of the right lower lobe
Follow radiographically-until clearing
Cultures reviewed
Stool cultures negative
C. difficile negative
MRSA screen negative
Urine cultures no growth
Urine Legionella negative
Influenza negative
Finished antibiotics
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
Outpatient PET scan
Monitor hypercalcemia
Smoking history noted--quit 24 years ago
Smoking cessation continued
DVT prophylaxis-on Coumadin
Nutrition
Physical therapy
Outpatient pulmonary [id number], 6-minute walk test, radiographic follow-up, potential biopsy
Diagnostic Data
Chest X-Ray: 08/25/24- New findings concerning for right-sided pneumonia.
09/21/15- No active disease.
CT Scan: CAP 08/27/24- Soft tissue fullness in the right hilar and infrahilar region with abrupt cut off of the bronchus intermedius. Findings likely represent a combination of infected neoplasm and postobstructive atelectasis within the right
middle and right lower lobe. Lymphadenopathy within the chest, which is likely neoplastic lymphadenopathy. Small to moderate right pleural effusion.
Patchy parenchymal opacity within the right upper lobe of the lung, which is likely patchy pneumonia. Patchy parenchymal opacity within the posterior aspect of the left lower lobe of the lung, most likely atelectasis, although pneumonia is also
possible. Minimal left pleural effusion. Changes of emphysema in the visualized upper lungs. Cholelithiasis. Mild fatty infiltration liver. Low-density lesion within the anterior left lobe of the liver, nonspecific, but concerning for hepatic
metastatic disease. 3 cm mass arising in the right adrenal gland, and CT features are most suggestive of adenoma or myelolipoma. However, given the rest of the findings on this examination, metastatic disease not completely excluded. Lucent lesions
within the skeleton as described, and raises concern for bony metastatic disease, especially lesion within C6. As warranted, further evaluation with nuclear medicine bone scan could be considered. As warranted, further evaluation with CT examination
with intravenous contrast may be helpful.
Subjective Data
-
Date of Service:
Date of Service: September 05, 2024
Chief Complaint: Pulmonary Follow Up and Dyspnea Follow Up
Subjective:
Still has some shortness of breath, complains of some headaches, no increased chest congestion, productive cough, chest pain or abdominal pain
Review of Systems
General: Other (Per HPI)
Objective Data
Data Reviewed
Vital Signs / I&O:
Vital Signs
Temp Pulse Resp BP Pulse Ox
97.5 F 82 16 169/86 92
09/05/24 07:30 09/05/24 08:59 09/05/24 08:13 09/05/24 08:59 09/05/24 08:13
Intake and Output
09/04/24 09/05/24 09/06/24
06:59 06:59 06:59
Intake Total 1290 / 1290 2160 / 2160
Balance 1290 / 1290 2160 / 2160
SaO2: 92
Nasal Cannula flow liters per minute: 4
Physical Exam
General: Respiratory Distress (n), Comfortable and Other (NAD)
HEENT: Normocephalic, Anicteric and Moist Mucous Membranes
Cardiovascular: Regular Rhythm
Respiratory: Wheeze (Few expiratory), Non-Labored Respirations, Accessory Resp Muscle Use (n) and Stridor (n)
GI: Soft, Non Distended and Non Tender
Neurology: Awake, Alert and No Motor Deficits
Skin: Warm, Good Color and Cyanosis (n)
Labs/Micro/Reports
Lab Data
09/05/24 06:16
09/05/24 06:16
Laboratory Results
09/05/24
06:16
PT 32.3 H
INR 3.10
Microbiology
08/29/24 13:10 Feces/Stool Salmonella/Shigella Culture - Final
No Salmonella, Shigella, Aeromonas or Plesiomonas species
isolated.
08/29/24 13:10 Feces/Stool Campylobacter Culture - Final
No Campylobacter species isolated.
08/29/24 13:10 Feces/Stool Shiga Toxin Test - Final
No E. coli Shiga Toxin 1 or 2 detected.
[2024-09-05] MEDS: DECADRON 4 MG IV ×2 (10:42→22:02)
--- NOTE | 2024-09-05 12:04 | W.PN.HOSP.TC ---
Today's Communication/Plan
-
Monitor vital signs see plan
Continue with Decadron
Wean oxygen as tolerated
Called son, left voicemail
Hold Coumadin today
Pulmonary following
Assessment / Plan
Assessment / Plan
#Acute hypoxemic respiratory insufficiency
#Community-acquired pneumonia
#Sepsis POA, now resolved
-Chest x-ray with right-sided infiltrate concerning for pneumonia, leukocytosis present
-Has required low levels of oxygen here, does not wear oxygen at baseline
-Was started on IV ceftriaxone and doxycycline empirically; s/p Doxy
-Urine antigen testing negative for Legionella; viral panel negative
-CT C/A/P showed signs of pneumonia superimposed on lung malignancy
-Suspect component of anxiety contributing to her shortness of breath
-On 3-4 L O2; wean o2 as tolerated
Plan
-finished abx
-Trend CBC and temperature curve
-Wean oxygen for SpO2 >90% 88 to 92% in context of emphysema
-Continue with DuoNebs as needed; wheezing, added standing duonebs, inhaled pulmicort
repeat CXR 09/02 with improving PNA, atelectasis
started decadron; wean to 4Q12
#Metastatic lung cancer
-CT C/A/P without contrast showed likely bronchogenic carcinoma the right lung, adrenal mass, C6 bone lesion
-Patient does have previous smoking history despite stopping 24 years ago, smoked as well
-Pulmonology and oncology following, planning for bronchoscopy with biopsy and tissue diagnosis
-Will need formal staging with PET/CT, brain MRI without any malignancy
-Will need to have consideration for PD-1 testing if non-small cell lung cancer noted
-MRI brain with and without contrast did not have signs of metastasis
Pseudo hyponatremia
Monitor
#Hypercalcemia
-Very likely secondary to metastatic lung cancer, unclear histopathology at this time
-S/p pamidronate; nephrology sent paraprotein workup for multiple myeloma
-Follow-up iPTH levels, SPEP/UPEP + ETHAN, PTHrP levels
-Calcium levels normalized, continue to monitor BMP
#CKD 3
-On arrival had serum creatinine 1.2; last labs in November with creatinine 0.9
-Creatinine level has been fairly stable here, between 1.0 and 1.2
-Monitor daily BMP, avoid nephrotoxin
#T2DM with hyperglycemia
-On arrival blood sugar was 377; Home medications include metformin and glipizide
-Metformin held; continued on glipizide and started on ISS with Accu-Cheks
sugar now uncontrolled, on steroids. Started long-acting, short acting insulin
#Hypertension
-Home medication includes losartan, bisoprolol, diltiazem
-No known history of hypertensive systemic disease
-BP currently elevated
-Ordered IV hydralazine as needed
#H/O DVT of RLE
-Home medications include warfarin with INR goal 2�3
-INR up to 3.1; hold Coumadin
-Held warfarin evening of 08/31 and 09/01 for supratherapeutic INR
Anxiety
monitor
#Hypokalemia
-Likely nutritional, monitor
-Continue to trend BMP and replete as needed
DVT prophylaxis: Home warfarin
CODE STATUS: full code
Dr Peters Discussed with patient's 2 sons (Tyson and Gilmar) were present and he provided them with updates. Stated that they would prefer daily updates if possible. Gilmar's phone number [phone], would like results of tests here prior to
giving them to the patient so that they can be present
I spent a total of 52 minutes with the patient or on the floor. More than 50% of this time involved counseling and coordination of care.
General: Well Developed, No Apparent Distress, Comfortable and Obese
HEENT: Normocephalic, Atraumatic, Moist Mucous Membranes and Anicteric
Respiratory: Clear to Auscultation and Non Labored Respirations; Negative Accessory Resp Muscle Use
Cardiac: Regular Rhythm, S1/S2 and Murmur; Negative Rub or Gallop
GI: Soft, Nontender, Nondistended and Normal Bowel Sounds
Musculoskeletal: No Clubbing, No Cyanosis and No Edema
Skin: Warm, Dry and Normal Turgor; Negative Rash
Neuro: AO x 3 and Nonfocal/Grossly Intact
Psych: Anxious
Anticipated Discharge: 24 - 48 hours
Subjective/Interval History
-
Date of Service: September 05, 2024
denies pain
Objective Data
-
Labs:
Laboratory Results
09/05/24
06:16
WBC 14.8 H
Hgb 10.9 L
Hct 31.9 L
Plt Count 130
PT 32.3 H
INR 3.10
Sodium 133 L
Potassium 4.3
Chloride 102
Carbon Dioxide 23
BUN 34 H
Creatinine 0.6
Glucose 326 H
Calcium 7.9 L
Vital Signs:
Vital Signs
Temp Pulse Resp BP Pulse Ox
97.5 F 86 16 169/86 93
09/05/24 07:30 09/05/24 11:33 09/05/24 11:33 09/05/24 08:59 09/05/24 11:33
I&O
09/04/24 09/05/24 09/06/24
06:59 06:59 06:59
Intake Total 1290 / 1290 2160 / 2160
Balance 1290 / 1290 2160 / 2160
[2024-09-05 12:18] LABS: Glucose - Point of Care 317 mg/dl (70-99)
--- NOTE | 2024-09-05 13:17 | CM ---
Addendum entered by Amanda Boateng 09/05/24 13:36:
[facility] did not accept referral
Addendum entered by Amanda Boateng 09/05/24 13:24:
Sent updated clinicals to SNF referrals; requested that admission revisit referral and provide bed availability
Original Note:
CM reached out to [facility], [facility], and [facility] and requested that they revisit Referral for SNF and provide and update.
[2024-09-05] MEDS: NOVOLOG FLEXPEN 9 UNITS SC ×2 (13:34→17:39)
[2024-09-05 14:51] VITALS: BP 133/62; PULSE 76; O2SAT 90
[2024-09-05 14:55] VITALS: BP 133/62; PULSE 76; O2SAT 90
[2024-09-05 15:30] VITALS: BP 145/67
[2024-09-05 16:53] LABS: Glucose - Point of Care 349 mg/dl (70-99)
[2024-09-05 21:35] LABS: Glucose - Point of Care 315 mg/dl (70-99)
[2024-09-05] MEDS: LANTUS 0.21 UNITS SC (22:01)
[2024-09-05 23:54] VITALS: BP 160/75
[2024-09-06] MEDS: ULTRAM 25 MG PO (05:47)
[2024-09-06 06:06] VITALS: BMI 34.6
[2024-09-06 06:29] LABS: Hemoglobin 10.9 g/dL (12.0-16.0); Mean Corp Hgb Conc. 34.1 g/dL (33.0-37.0); Mean Corpuscular Hgb 29.8 pg (27.0-31.0); Mean Corpuscular Volume 87.4 fL (81.0-99.0); Mean Platelet Volume 10.4 fL (7.4-10.4); Platelet Count 122 10^3/uL (130-400); Red Blood Cell Count 3.66 10^6/uL (4.20-5.40); Red Cell Dist. Width 13.6 % (11.5-14.5); White Blood Cell Count 14.2 10^3/uL (4.8-10.8)
[2024-09-06 06:34] LABS: INR 3.41; PT 34.7 Sec (11.4-14.6)
[2024-09-06 06:51] LABS: Blood Urea Nitrogen 36 mg/dl (7-17); Carbon Dioxide 25 mmol/L (22-30); Chloride 102 mmol/L (98-107); Estimated Creatinine Clearance 76 ml/min; Glucose 274 mg/dl (70-99); Potassium 4.5 mmol/L (3.5-5.1); Sodium 134 mmol/L (135-145); eGFR > 60.00
[2024-09-06 07:14] LABS: Eosinophils 1 % (0-6); Lymphocytes 11 % (20-51); Metamyelocytes 7 % (-); Myelocytes 3 % (-); Platelets Checked Yes; Segmented Neutrophils 63 % (42-75)
[2024-09-06 07:15] LABS: Absolute Neutrophils -Man Diff 10.9 10^3/uL (1.4-6.5); Band Neutrophils 14 % (0-3); Monocytes 1 % (2-9)
[2024-09-06 07:16] LABS: Normal RBC Morphology Yes; Total Cells Counted 100
[2024-09-06] MEDS: DUONEB 3 ML INH ×4 (07:18→18:37)
[2024-09-06] MEDS: PULMICORT 0.5 MG INH ×2 (07:18→18:37)
[2024-09-06 07:35] VITALS: BP 164/84
[2024-09-06 08:02] LABS: Glucose - Point of Care 278 mg/dl (70-99)
[2024-09-06] MEDS: NOVOLOG FLEXPEN-LOW RESISTANCE 3 UNITS SC ×2 (08:08→17:53)
[2024-09-06] MEDS: NOVOLOG FLEXPEN 9 UNITS SC (08:09)
[2024-09-06] MEDS: GLUCOTROL 2.5 MG PO (08:11)
[2024-09-06] MEDS: ZEBETA 5 MG PO (08:11)
[2024-09-06] MEDS: ZOLOFT 50 MG PO (08:12)
[2024-09-06] MEDS: COZAAR 100 MG PO (08:12)
[2024-09-06] MEDS: MUCINEX 600 MG PO ×2 (08:12→21:07)
[2024-09-06] MEDS: LIPITOR 20 MG PO (08:12)
[2024-09-06] MEDS: CARDIZEM CD 240 MG PO (08:12)
--- NOTE | 2024-09-06 09:56 | W.PN.PUL.V3 ---
Today's Communication / Plan
-
Attempt to wean oxygen
Still with wheezing-no change in steroids-hopefully reduce in the next 24 hours
Speech evaluation-complains of coughing after eating
Assessment
-
Patient is a 79-year-old female with previous history of diabetes, hyperlipidemia, right lower extremity DVT on Coumadin presenting to ER with generalized weakness, cough complaints, left-sided flank pain over the past week. She had alerted EMS
today because of feeling of weakness, could not get up from commode and felt her legs give way. She denies any shortness of breath with this episode but was noted to be hypoxemic on arrival to ER. She was hypertensive with systolic BP of 200 and
tachycardia of 123. Serum calcium was very elevated at 15.2 which prompted malignancy w/u. Chest x-ray demonstrated possible right basilar disease, follow-up CT abdomen pelvis indicating postobstructive mass versus pneumonia at right base. We are
consulted for eval.
Generalized weakness
Nonproductive cough
Abnormal CT, right sided postobstructive pneumonia versus mass
Suspect widely metastatic disease based on CT (liver, bone, adrenal)
Community-acquired pneumonia
Compressive atelectasis
Hypertensive urgency
Tachycardia
Hypercalcemia
Suspect COPD with mild acute exacerbation
Emphysema noted on CT
Conditions present prior to admission:
Varicose veins
Non-pressure chronic ulcer of R ankle
Diabetes
Hyperlipidemia
Right lower extremity DVT on Coumadin
COPD
Former smoker, 30 pack years, quit 24 years ago
Obesity BMI 34
Plan
Respiratory status slowly improving-still with considerable wheezing-suspect mild COPD exacerbation
Undoubtedly has underlying emphysema/COPD with [id number] smoking history
Supplemental oxygen as needed-currently on 4 L
Continue nebulizers
Mucolytic's
Decadron initiated-4 mg IV every 12 hours-without change today-begin to reduce in the next 24 hours
Chest x-ray 09/02/2024-slight improvement in the aeration of the right lower lobe
Follow radiographically-until clearing
Aspiration precautions
Speech therapy evaluation-complains of coughing after eating
Cultures reviewed
Stool cultures negative
C. difficile negative
MRSA screen 08/25/2024-negative
MRSA screen 09/06/2024-pending
Urine cultures no growth
Urine Legionella negative
Influenza negative
Finished antibiotics
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
Outpatient PET scan
Monitor hypercalcemia
Smoking history noted--quit 24 years ago
Smoking cessation continued
DVT prophylaxis-on Coumadin
Nutrition
Physical therapy
Outpatient pulmonary [id number], 6-minute walk test, radiographic follow-up, potential biopsy
Diagnostic Data
Chest X-Ray: 08/25/24- New findings concerning for right-sided pneumonia.
09/21/15- No active disease.
CT Scan: CAP 08/27/24- Soft tissue fullness in the right hilar and infrahilar region with abrupt cut off of the bronchus intermedius. Findings likely represent a combination of infected neoplasm and postobstructive atelectasis within the right
middle and right lower lobe. Lymphadenopathy within the chest, which is likely neoplastic lymphadenopathy. Small to moderate right pleural effusion.
Patchy parenchymal opacity within the right upper lobe of the lung, which is likely patchy pneumonia. Patchy parenchymal opacity within the posterior aspect of the left lower lobe of the lung, most likely atelectasis, although pneumonia is also
possible. Minimal left pleural effusion. Changes of emphysema in the visualized upper lungs. Cholelithiasis. Mild fatty infiltration liver. Low-density lesion within the anterior left lobe of the liver, nonspecific, but concerning for hepatic
metastatic disease. 3 cm mass arising in the right adrenal gland, and CT features are most suggestive of adenoma or myelolipoma. However, given the rest of the findings on this examination, metastatic disease not completely excluded. Lucent lesions
within the skeleton as described, and raises concern for bony metastatic disease, especially lesion within C6. As warranted, further evaluation with nuclear medicine bone scan could be considered. As warranted, further evaluation with CT examination
with intravenous contrast may be helpful.
Subjective Data
-
Date of Service:
Date of Service: September 06, 2024
Chief Complaint: Pulmonary Follow Up and Dyspnea Follow Up
Subjective:
Still complaining of wheezing, some chest congestion, no cough no, no chest pain or abdominal pain
Review of Systems
General: Other (Per HPI)
Objective Data
Data Reviewed
Vital Signs / I&O:
Vital Signs
Temp Pulse Resp BP Pulse Ox
97.6 F 72 17 164/84 96
09/06/24 07:35 09/06/24 08:11 09/06/24 07:35 09/06/24 08:11 09/06/24 07:35
Intake and Output
09/05/24 09/06/24 09/07/24
06:59 06:59 06:59
Intake Total 2160 / 2160 1400 / 1400
Balance 2160 / 2160 1400 / 1400
SaO2: 96
Nasal Cannula flow liters per minute: 4
Physical Exam
General: Respiratory Distress (n), Comfortable and Other (NAD)
HEENT: Normocephalic, Anicteric and Moist Mucous Membranes
Cardiovascular: Regular Rhythm
Respiratory: Wheeze (Few expiratory), Non-Labored Respirations, Accessory Resp Muscle Use (n) and Stridor (n)
GI: Soft, Non Distended and Non Tender
Neurology: Awake, Alert and No Motor Deficits
Skin: Warm, Good Color and Cyanosis (n)
Labs/Micro/Reports
Lab Data
09/06/24 05:57
09/06/24 05:57
Laboratory Results
09/06/24
05:57
PT 34.7 H
INR 3.41
[2024-09-06] MEDS: DECADRON 4 MG IV ×2 (10:24→21:07)
[2024-09-06] MEDS: TESSALON PERLES 200 MG PO (10:24)
[2024-09-06 11:15] LABS: Glucose - Point of Care 408 mg/dl (70-99)
[2024-09-06 11:55] LABS: Glucose 381 mg/dl (70-99)
[2024-09-06] MEDS: NOVOLOG FLEXPEN 12 UNITS SC ×2 (12:00→17:52)
[2024-09-06] MEDS: NOVOLOG FLEXPEN-LOW RESISTANCE 5 UNITS SC (12:01)
--- NOTE | 2024-09-06 12:40 | W.PN.HOSP.TC ---
Today's Communication/Plan
-
Monitor vital signs see plan
Still wheezing this morning
Continue with Decadron, nebs
Wean oxygen as tolerated
Discussed with son over the phone
Increase insulin
Assessment / Plan
Assessment / Plan
#Acute hypoxemic respiratory insufficiency
#Community-acquired pneumonia
#Sepsis POA, now resolved
-Chest x-ray with right-sided infiltrate concerning for pneumonia, leukocytosis present
-Has required low levels of oxygen here, does not wear oxygen at baseline
-Was started on IV ceftriaxone and doxycycline empirically; s/p Doxy
-Urine antigen testing negative for Legionella; viral panel negative
-CT C/A/P showed signs of pneumonia superimposed on lung malignancy
-Suspect component of anxiety contributing to her shortness of breath
-On 3-4 L O2; wean o2 as tolerated
Plan
-finished abx
-Trend CBC and temperature curve
-Wean oxygen for SpO2 >90% 88 to 92% in context of emphysema
-Continue with DuoNebs as needed; wheezing, added standing duonebs, inhaled pulmicort
repeat CXR 09/02 with improving PNA, atelectasis
started decadron; wean to 4Q12
#Metastatic lung cancer
-CT C/A/P without contrast showed likely bronchogenic carcinoma the right lung, adrenal mass, C6 bone lesion
-Patient does have previous smoking history despite stopping 24 years ago, smoked as well
-Pulmonology and oncology following, planning for bronchoscopy with biopsy and tissue diagnosis
-Will need formal staging with PET/CT, brain MRI without any malignancy
-Will need to have consideration for PD-1 testing if non-small cell lung cancer noted
-MRI brain with and without contrast did not have signs of metastasis
Pseudo hyponatremia
Monitor
#Hypercalcemia
-Very likely secondary to metastatic lung cancer, unclear histopathology at this time
-S/p pamidronate; nephrology sent paraprotein workup for multiple myeloma
-Follow-up iPTH levels, SPEP/UPEP + ETHAN, PTHrP levels
-Calcium levels normalized, continue to monitor BMP
#CKD 3
-On arrival had serum creatinine 1.2; last labs in November with creatinine 0.9
-Creatinine level has been fairly stable here, between 1.0 and 1.2
-Monitor daily BMP, avoid nephrotoxin
#T2DM with hyperglycemia
-On arrival blood sugar was 377; Home medications include metformin and glipizide
-Metformin held; continued on glipizide and started on ISS with Accu-Cheks
sugar now uncontrolled, on steroids. Started long-acting, short acting insulin
#Hypertension
-Home medication includes losartan, bisoprolol, diltiazem
-No known history of hypertensive systemic disease
-BP currently elevated
-Ordered IV hydralazine as needed
#H/O DVT of RLE
-Home medications include warfarin with INR goal 2�3
-INR up to 3.4; hold Coumadin
-Held warfarin evening of 08/31 and 09/01 for supratherapeutic INR
Anxiety
monitor
#Hypokalemia
-Likely nutritional, monitor
-Continue to trend BMP and replete as needed
DVT prophylaxis: Home warfarin
CODE STATUS: full code
Dr Peters Discussed with patient's 2 sons (Tyson and Gilmar) were present and he provided them with updates. Stated that they would prefer daily updates if possible. Gilmar's phone number [phone], would like results of tests here prior to
giving them to the patient so that they can be present
I spent a total of 51 minutes with the patient or on the floor. More than 50% of this time involved counseling and coordination of care.
General: Well Developed, No Apparent Distress, Comfortable and Obese
HEENT: Normocephalic, Atraumatic, Moist Mucous Membranes and Anicteric
Respiratory: Clear to Auscultation and Non Labored Respirations; Negative Accessory Resp Muscle Use
Cardiac: Regular Rhythm, S1/S2 and Murmur; Negative Rub or Gallop
GI: Soft, Nontender, Nondistended and Normal Bowel Sounds
Musculoskeletal: No Edema
Skin: Warm, Dry and Normal Turgor; Negative Rash
Neuro: AO x 3 and Nonfocal/Grossly Intact
Psych: Anxious
Anticipated Discharge: > 48 hours
Subjective/Interval History
-
Date of Service: September 06, 2024
denies pain
Objective Data
-
Labs:
Laboratory Results
09/06/24 09/06/24
05:57 11:27
WBC 14.2 H
Hgb 10.9 L
Hct 32.0 L
Plt Count 122 L
PT 34.7 H
INR 3.41
Sodium 134 L
Potassium 4.5
Chloride 102
Carbon Dioxide 25
BUN 36 H
Creatinine 0.6
Glucose 274 H 381 H
Calcium 8.0 L
Vital Signs:
Vital Signs
Temp Pulse Resp BP Pulse Ox
97.6 F 72 16 164/84 92
09/06/24 07:35 09/06/24 11:14 09/06/24 11:14 09/06/24 08:11 09/06/24 11:14
I&O
09/05/24 09/06/24 09/07/24
06:59 06:59 06:59
Intake Total 0 / 2160 1400 / 1400
Balance 2160 / 2160 1400 / 1400
--- NOTE | 2024-09-06 14:12 | PTOTSP ---
SPEECH THERAPY SWALLOW EVALUATION:
Patient exhibits grossly functional oropharyngeal swallow at bedside; However, patient is at high risk for dysphagia/aspiration and related complications given complaints of coughing while eating/drinking, tenuous respiratory/pulmonary status, and
newly diagnosed metastatic lung cancer. Currently with pneumonia in right lung, suspicious for aspiration-related infection. Recommend Videofluoroscopic Swallowing Study to further assess swallow physiology. Patient appears safe to continue oral
diet of Regular textures, thin liquids until VSE. Medications whole with liquid as best tolerated. General aspiration precautions. ST to follow with additional recomendations following VSE results.
RECOMMEND:
1) Videofluoroscopic Swallowing Study
2) Regular textures, thin liquids
3) Medications whole with liquid as best tolerated
4) General aspiration precautions
5) ST to follow
--- NOTE | 2024-09-06 14:17 | CM ---
Spoke with Alisha in admissions at [facility] who confirmed receipt of referral and stated that she will be able to accept patient.
Spoke with patient's sons Tyson and Gaurav who are agreeable to patient transferring to [facility] upon discharge.
Plan: Case management will continue to follow and assist with discharge planning. [facility] when stable.
[2024-09-06 14:56] VITALS: BP 141/58
--- NOTE | 2024-09-06 16:00 | PTOTSP ---
Speech Language Pathology
VIDEOFLUOROSCOPIC SWALLOWING EXAMINATION (VSE) completed. Mild pharyngeal dysphagia noted. Supraglottic penetration which fully cleared (PAS 2) noted with thin liquids via tsp/cup and mildly thick liquids via consecutive straw sips. Penetration
to the level of the vocal folds (PAS 5) noted with consecutive straw sips of thin liquids.
Recommend:
(1) Regular solids/thin liquids
(2) Aspiration precautions: single sips, sit upright, slow rate
(3) Meds whole with liquid if able to take with single sip. Otherwise, whole in puree
(4) EXECUTIVE PILOT to continue to follow
[2024-09-06 16:32] VITALS: BP 105/72; BP 75/46; BP 93/58; PULSE 109; PULSE 81; PULSE 95
[2024-09-06 16:58] LABS: Glucose - Point of Care 299 mg/dl (70-99)
[2024-09-06 21:39] LABS: Glucose - Point of Care 408 mg/dl (70-99)
[2024-09-06] MEDS: LANTUS 0.25 UNITS SC (22:07)
[2024-09-06 22:32] LABS: Glucose 303 mg/dl (70-99)
[2024-09-06] MEDS: NOVOLOG FLEXPEN 4 UNITS SC (23:03)
[2024-09-06 23:30] VITALS: BP 168/84
[2024-09-07] MEDS: PULMICORT 0.5 MG INH ×2 (05:53→19:49)
[2024-09-07] MEDS: DUONEB 3 ML INH ×4 (05:53→19:50)
[2024-09-07 07:25] LABS: INR 3.01; PT 31.1 Sec (11.4-14.6)
[2024-09-07 07:45] LABS: Blood Urea Nitrogen 32 mg/dl (7-17); Calcium 7.9 mg/dl (8.4-10.2); Carbon Dioxide 25 mmol/L (22-30); Chloride 102 mmol/L (98-107); Estimated Creatinine Clearance 76 ml/min; Glucose 172 mg/dl (70-99); Potassium 4.5 mmol/L (3.5-5.1); Sodium 135 mmol/L (135-145); eGFR > 60.00
[2024-09-07] MEDS: DECADRON 4 MG IV ×2 (08:00→22:49)
[2024-09-07 08:08] LABS: Hematocrit 32.2 % (37.0-47.0); Mean Corp Hgb Conc. 34.2 g/dL (33.0-37.0); Mean Corpuscular Hgb 30.3 pg (27.0-31.0); Mean Corpuscular Volume 88.7 fL (81.0-99.0); Mean Platelet Volume 10.2 fL (7.4-10.4); Platelet Count 111 10^3/uL (130-400); Red Blood Cell Count 3.63 10^6/uL (4.20-5.40); Red Cell Dist. Width 13.8 % (11.5-14.5); White Blood Cell Count 11.1 10^3/uL (4.8-10.8)
[2024-09-07 08:11] LABS: Glucose - Point of Care 195 mg/dl (70-99)
[2024-09-07 08:57] VITALS: BP 120/80
--- NOTE | 2024-09-07 09:02 | W.PN.PUL3 ---
Today's Communication / Plan
-
Attempt to wean oxygen with goal 88-95% (suspected COPD) --> check ambulatory pulse oximetry prior to discharge
Check right sided chest US --> if sufficient amount of pleural fluid then IR can perform thoracentesis, and send for cytopathology in addition to cultures
Pt is s/p course of ABx
Ultimately she will need repeat imaging in 4-6 weeks to assess for improvement predominantly in R-hemithorax
Continue systemic steroids and wean as she clinically improves
Continue coumadin with goal INR 2-3
DuoNebs + Budesonide
Diet as per [employer] INSPECTOR
Pulmonary service will continue to follow along
Assessment
-
Patient is a 79-year-old female with previous history of diabetes, hyperlipidemia, right lower extremity DVT on Coumadin presenting to ER with generalized weakness, cough complaints, left-sided flank pain over the past week. She had alerted EMS
today because of feeling of weakness, could not get up from commode and felt her legs give way. She denies any shortness of breath with this episode but was noted to be hypoxemic on arrival to ER. She was hypertensive with systolic BP of 200 and
tachycardia of 123. Serum calcium was very elevated at 15.2 which prompted malignancy w/u. Chest x-ray demonstrated possible right basilar disease, follow-up CT abdomen pelvis indicating postobstructive mass versus pneumonia at right base. We are
consulted for eval.
Impression:
Generalized weakness
Nonproductive cough
Abnormal CT, right sided postobstructive pneumonia versus mass
Suspect widely metastatic disease based on CT (liver, bone, adrenal)
Community-acquired pneumonia
Compressive atelectasis
Hypertensive urgency
Tachycardia - resolved
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
Suspect COPD with mild acute exacerbation
Emphysema noted on CT
Conditions present prior to admission:
Varicose veins
Non-pressure chronic ulcer of R ankle
Diabetes
Hyperlipidemia
Right lower extremity DVT on Coumadin
COPD
Former smoker, 30 pack years, quit 24 years ago
Obesity BMI 34
Plan
Respiratory status slowly improving-suspect mild COPD exacerbation in setting of undiagnosed lung cancer with RML/RLL atelectasis
Undoubtedly has underlying emphysema/COPD with [id number] smoking history
Supplemental oxygen as needed-currently on 5 L
Continue nebulizers - DuoNebs QID
Mucolytics
Decadron initiated-4 mg IV every 12 hours-without change today-wean as she clinically improves
Follow radiographically-until clearing - ultimately will need repeat CT chest as an outpatient
Aspiration precautions
Diet as per [employer] H[employer] INSPECTOR --> cleared her for regular solids/thin liquids after VSE on 09/06/2020
Cultures reviewed
Stool cultures negative; Shiga toxin pending
C. difficile negative
MRSA screen 08/25/2024-negative
MRSA screen 09/06/2024-negative
Urine cultures no growth (08/25/2024)
Urine Legionella negative
Check strep PNA urine antigen
Influenza negative
Finished antibiotics
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
Outpatient PET scan
Check R-lung ultrasound and if sufficient pleural fluid would consider IR thoracentesis
Monitor hypercalcemia
Smoking history noted--quit 24 years ago
Smoking cessation continued
DVT prophylaxis-on Coumadin
Nutrition
Physical therapy
Outpatient pulmonary [id number], 6-minute walk test, radiographic follow-up, potential biopsy
Pulmonary service will continue to follow along.
Diagnostic Data
Chest X-Ray: 08/25/24- New findings concerning for right-sided pneumonia.
09/21/15- No active disease.
CT Scan: CAP 08/27/24- Soft tissue fullness in the right hilar and infrahilar region with abrupt cut off of the bronchus intermedius. Findings likely represent a combination of infected neoplasm and postobstructive atelectasis within the right
middle and right lower lobe. Lymphadenopathy within the chest, which is likely neoplastic lymphadenopathy. Small to moderate right pleural effusion.
Patchy parenchymal opacity within the right upper lobe of the lung, which is likely patchy pneumonia. Patchy parenchymal opacity within the posterior aspect of the left lower lobe of the lung, most likely atelectasis, although pneumonia is also
possible. Minimal left pleural effusion. Changes of emphysema in the visualized upper lungs. Cholelithiasis. Mild fatty infiltration liver. Low-density lesion within the anterior left lobe of the liver, nonspecific, but concerning for hepatic
metastatic disease. 3 cm mass arising in the right adrenal gland, and CT features are most suggestive of adenoma or myelolipoma. However, given the rest of the findings on this examination, metastatic disease not completely excluded. Lucent lesions
within the skeleton as described, and raises concern for bony metastatic disease, especially lesion within C6. As warranted, further evaluation with nuclear medicine bone scan could be considered. As warranted, further evaluation with CT examination
with intravenous contrast may be helpful.
Total time spent today was 38 minutes for this encounter. Time includes reviewing laboratory test/imaging results, reviewing pertinent medical records, obtaining and reviewing medical history, performing an appropriate exam, ordering medications,
tests and procedures. Time also includes documentation of this encounter, coordinating patient care and communicating with other healthcare professionals. Total time does not include separately billed tests performed on this date of service.
Subjective Data
-
Date of Service:
Date of Service: September 07, 2024
Chief Complaint: Pulmonary Follow Up and Dyspnea Follow Up
Subjective:
Patient seen and evaluated today. Currently on 5 L/min. She has she has phlegm that is hard for her to get up. Denies chest pain, SANDERS, nausea, fevers or chills. Has occasional shortness of breath.
Review of Systems
General: Other (Negative unless mentioned above)
Objective Data
Data Reviewed
Vital Signs / I&O / Oxygen:
Vital Signs
Temp Pulse Resp BP Pulse Ox
97.7 F 95 20 120/80 90
09/07/24 08:57 09/07/24 08:57 09/07/24 08:57 09/07/24 08:57 09/07/24 08:57
Intake and Output
09/06/24 09/07/24 09/08/24
06:59 06:59 06:59
Intake Total 1400 / 1400 660 / 660
Balance 1400 / 1400 660 / 660
SaO2 90
Nasal Cannula flow liters per 4
minute
Physical Exam
General: Respiratory Distress (n), Comfortable and Other (NAD)
HEENT: Normocephalic, Anicteric and Moist Mucous Membranes
Cardiovascular: S1-S2 and Peripheral Edema (negative)
Respiratory: Wheeze (negative), Crackles (Right base), Rhonchi (negative), Non-Labored Respirations, Accessory Resp Muscle Use (n), Stridor (n) and Other (Diminished breath sounds at right base)
GI: Soft, Non Distended, Non Tender and Normal Bowel Sounds
Neurology: Awake, Alert and Tremors (negative)
Skin: Warm, Dry and Cyanosis (n)
Labs/Micro/Reports
Lab Data
09/07/24 06:14
09/07/24 06:14
Laboratory Results
09/07/24
06:14
PT 31.1 H
INR 3.01
Microbiology
09/06/24 05:36 Nose MRSA Screen - Final
No Methicillin Resistant Staphylococcus aureus isolated.
09/06/24 15:48 Feces/Stool C. difficile GDH Antigen & Toxins - Final
Negative for toxigenic C.difficile
09/06/24 15:48 Feces/Stool - Final
Negative for Norovirus GI and GII.
09/06/24 15:48 Feces/Stool Stool Leukocytes - Final
[2024-09-07] MEDS: NOVOLOG FLEXPEN-LOW RESISTANCE 1 UNITS SC (09:21)
[2024-09-07] MEDS: GLUCOTROL 2.5 MG PO (09:22)
[2024-09-07] MEDS: COZAAR 100 MG PO (09:22)
[2024-09-07] MEDS: ZEBETA 5 MG PO (09:22)
[2024-09-07] MEDS: MUCINEX 600 MG PO (09:22)
[2024-09-07] MEDS: ZOLOFT 50 MG PO (09:23)
[2024-09-07] MEDS: LIPITOR 20 MG PO (09:23)
[2024-09-07] MEDS: CARDIZEM CD 240 MG PO (09:23)
[2024-09-07] MEDS: TESSALON PERLES 200 MG PO ×2 (09:26→17:29)
[2024-09-07] MEDS: NOVOLOG FLEXPEN SC (09:38)
[2024-09-07 11:16] LABS: Absolute Neutrophils -Man Diff 8.3 10^3/uL (1.4-6.5); Band Neutrophils 11 % (0-3); Eosinophils 1 % (0-6); Lymphocytes 15 % (20-51); Monocytes 2 % (2-9); Segmented Neutrophils 64 % (42-75)
[2024-09-07 11:17] LABS: Metamyelocytes 4 % (-); Myelocytes 3 % (-)
[2024-09-07 11:19] LABS: Anisocytosis Slight; Hypochromasia Slight; Normal RBC Morphology No; Ovalocytes Slight; Platelets Checked Yes; Total Cells Counted 100
[2024-09-07 12:32] LABS: NT-proBNP 531 pg/ml
[2024-09-07 12:34] LABS: Glucose - Point of Care 307 mg/dl (70-99)
--- NOTE | 2024-09-07 12:49 | W.PN.HOSP.TC ---
Today's Communication/Plan
-
Monitor vital signs see plan
Continues to require oxygenation
Continue with steroids since, nebs
Pulmonary to see today
Wean O2 as tolerated
proBNP checked, normal
Assessment / Plan
Assessment / Plan
#Acute hypoxemic respiratory insufficiency
#Community-acquired pneumonia
#Sepsis POA, now resolved
-Chest x-ray with right-sided infiltrate concerning for pneumonia, leukocytosis present
-Has required low levels of oxygen here, does not wear oxygen at baseline
-Was started on IV ceftriaxone and doxycycline empirically; s/p Doxy
-Urine antigen testing negative for Legionella; viral panel negative
-CT C/A/P showed signs of pneumonia superimposed on lung malignancy
-Suspect component of anxiety contributing to her shortness of breath
-On 3-4 L O2; wean o2 as tolerated
Plan
-finished abx
-Trend CBC and temperature curve
-Wean oxygen for SpO2 >90% 88 to 92% in context of emphysema
-Continue with DuoNebs as needed; wheezing, added standing duonebs, inhaled pulmicort
repeat CXR 09/02 with improving PNA, atelectasis
started decadron; wean to 4Q12
#Metastatic lung cancer
-CT C/A/P without contrast showed likely bronchogenic carcinoma the right lung, adrenal mass, C6 bone lesion
-Patient does have previous smoking history despite stopping 24 years ago, smoked as well
-Pulmonology and oncology following, planning for bronchoscopy with biopsy and tissue diagnosis
-Will need formal staging with PET/CT, brain MRI without any malignancy
-Will need to have consideration for PD-1 testing if non-small cell lung cancer noted
-MRI brain with and without contrast did not have signs of metastasis
Pseudo hyponatremia
Monitor
#Hypercalcemia
-Very likely secondary to metastatic lung cancer, unclear histopathology at this time
-S/p pamidronate; nephrology sent paraprotein workup for multiple myeloma
-Follow-up iPTH levels, SPEP/UPEP + ETHAN, PTHrP levels
-Calcium levels normalized, continue to monitor BMP
#CKD 3
-On arrival had serum creatinine 1.2; last labs in November with creatinine 0.9
-Creatinine level has been fairly stable here, between 1.0 and 1.2
-Monitor daily BMP, avoid nephrotoxin
#T2DM with hyperglycemia
-On arrival blood sugar was 377; Home medications include metformin and glipizide
-Metformin held; continued on glipizide and started on ISS with Accu-Cheks
sugar now uncontrolled, on steroids. Started long-acting, short acting insulin
#Hypertension
-Home medication includes losartan, bisoprolol, diltiazem
-No known history of hypertensive systemic disease
-BP currently elevated
-Ordered IV hydralazine as needed
#H/O DVT of RLE
-Home medications include warfarin with INR goal 2�3
-INR up to 3; restarted Coumadin at 3 mg
-Held warfarin evening of 08/31 and 09/01 for supratherapeutic INR
Anxiety
monitor
#Hypokalemia
-Likely nutritional, monitor
-Continue to trend BMP and replete as needed
DVT prophylaxis: Home warfarin
CODE STATUS: full code
Dr Peters Discussed with patient's 2 sons (Tyson and Gilmar) were present and he provided them with updates. Stated that they would prefer daily updates if possible. Gilmar's phone number [phone], would like results of tests here prior to
giving them to the patient so that they can be present
I spent a total of 52 minutes with the patient or on the floor. More than 50% of this time involved counseling and coordination of care.
General: Well Developed, No Apparent Distress, Comfortable and Obese
HEENT: Normocephalic, Atraumatic, Moist Mucous Membranes and Anicteric
Respiratory: Clear to Auscultation and Non Labored Respirations; Negative Accessory Resp Muscle Use
Cardiac: Regular Rhythm, S1/S2 and Murmur; Negative Rub or Gallop
GI: Soft, Nontender, Nondistended and Normal Bowel Sounds
Musculoskeletal: No Edema
Skin: Warm, Dry and Normal Turgor; Negative Rash
Neuro: AO x 3 and Nonfocal/Grossly Intact
Psych: Anxious
Anticipated Discharge: > 48 hours
Subjective/Interval History
-
Date of Service: September 07, 2024
denies pain
Objective Data
-
Labs:
Laboratory Results
09/07/24
06:14
WBC 11.1 H
Hgb 11.0 L
Hct 32.2 L
Plt Count 111 L
PT 31.1 H
INR 3.01
Sodium 135
Potassium 4.5
Chloride 102
Carbon Dioxide 25
BUN 32 H
Creatinine 0.6
Glucose 172 H
Calcium 7.9 L
Vital Signs:
Vital Signs
Temp Pulse Resp BP Pulse Ox
97.7 F 81 16 120/80 92
09/07/24 08:57 09/07/24 11:12 09/07/24 11:12 09/07/24 08:57 09/07/24 11:12
I&O
09/06/24 09/07/24 09/08/24
06:59 06:59 06:59
Intake Total 1400 / 1400 660 / 660
Balance 1400 / 1400 660 / 660
[2024-09-07] MEDS: NOVOLOG FLEXPEN-LOW RESISTANCE 4 UNITS SC (13:25)
[2024-09-07] MEDS: NOVOLOG FLEXPEN 15 UNITS SC ×2 (13:25→17:31)
--- NOTE | 2024-09-07 15:03 | PTCARENOTE ---
PT very SOB when she lies flat with care. pulse ox 87% on 4 liers with visible dyspnea. Pt put up to 90degress and she stayed at 87 with sob. oxygen increased to 5 liters nc 90%. it took 6 minutes for patient to recover after being flat
[2024-09-07 15:34] VITALS: BP 147/67; BP 151/70; BP 155/53; PULSE 79; PULSE 90; O2SAT 92
[2024-09-07 16:26] VITALS: BP 147/67
[2024-09-07 17:29] LABS: Glucose - Point of Care 139 mg/dl (70-99)
[2024-09-07] MEDS: COUMADIN 3 MG PO (17:29)
[2024-09-07] MEDS: ATIVAN 0.5 MG PO (17:30)
[2024-09-07] MEDS: NOVOLOG FLEXPEN-LOW RESISTANCE SC (17:31)
[2024-09-07 21:21] LABS: Glucose - Point of Care 130 mg/dl (70-99)
[2024-09-07] MEDS: MUCINEX 1200 MG PO (22:48)
[2024-09-07] MEDS: LANTUS 0.3 UNITS SC (22:49)
[2024-09-07 23:58] VITALS: BP 141/68
[2024-09-08 05:59] VITALS: BMI 34.0
[2024-09-08 06:50] LABS: INR 2.88; PT 30.1 Sec (11.4-14.6)
[2024-09-08 06:57] LABS: Blood Urea Nitrogen 38 mg/dl (7-17); Calcium 7.7 mg/dl (8.4-10.2); Carbon Dioxide 26 mmol/L (22-30); Chloride 102 mmol/L (98-107); Estimated Creatinine Clearance 64 ml/min; Glucose 121 mg/dl (70-99); Phosphorus 3.6 mg/dl (2.5-4.5); Potassium 4.9 mmol/L (3.5-5.1); Sodium 134 mmol/L (135-145); eGFR > 60.00
[2024-09-08 06:58] LABS: Hematocrit 31.1 % (37.0-47.0); Hemoglobin 10.2 g/dL (12.0-16.0); Mean Corp Hgb Conc. 32.8 g/dL (33.0-37.0); Mean Corpuscular Hgb 29.5 pg (27.0-31.0); Mean Corpuscular Volume 89.9 fL (81.0-99.0); Red Blood Cell Count 3.46 10^6/uL (4.20-5.40); Red Cell Dist. Width 14.1 % (11.5-14.5); White Blood Cell Count 9.3 10^3/uL (4.8-10.8)
[2024-09-08 07:05] LABS: Magnesium 2.2 mg/dl (1.6-2.3)
[2024-09-08 07:18] LABS: Glucose - Point of Care 114 mg/dl (70-99)
[2024-09-08 07:22] LABS: LDH 3612 U/L (120-246)
[2024-09-08] MEDS: NOVOLOG FLEXPEN-LOW RESISTANCE SC ×3 (07:59→17:26)
[2024-09-08] MEDS: DUONEB 3 ML INH ×4 (08:11→20:23)
[2024-09-08] MEDS: PULMICORT 0.5 MG INH ×2 (08:11→20:23)
[2024-09-08] MEDS: GLUCOTROL 2.5 MG PO (08:14)
[2024-09-08] MEDS: ZEBETA 5 MG PO (08:15)
[2024-09-08] MEDS: COZAAR 100 MG PO (08:25)
[2024-09-08] MEDS: LIPITOR 20 MG PO (08:25)
[2024-09-08] MEDS: MUCINEX 1200 MG PO ×2 (08:25→20:59)
[2024-09-08] MEDS: CARDIZEM CD 240 MG PO (08:25)
[2024-09-08] MEDS: ZOLOFT 50 MG PO (08:25)
[2024-09-08 09:08] VITALS: BP 148/57
[2024-09-08 09:20] LABS: Absolute Neutrophils -Man Diff 6.6 10^3/uL (1.4-6.5); Band Neutrophils 10 % (0-3); Lymphocytes 20 % (20-51); Mean Platelet Volume 9.9 fL (7.4-10.4); Metamyelocytes 2 % (-); Monocytes 2 % (2-9); Myelocytes 4 % (-); Platelet Count 92 10^3/uL (130-400); Platelets Checked Yes; Segmented Neutrophils 62 % (42-75)
[2024-09-08 09:21] LABS: Normal RBC Morphology Yes; Total Cells Counted 100
--- NOTE | 2024-09-08 09:25 | W.PN.PUL3 ---
Today's Communication / Plan
-
Attempt to wean oxygen with goal 88-95% (suspected COPD) --> check ambulatory pulse oximetry prior to discharge
Right sided chest US shows moderate pleural effusion --> pending IR R-sided thoracentesis, send for cultures, cell count and cytopathology
Pt is s/p course of ABx
Ultimately she will need repeat imaging in 4-6 weeks to assess for improvement predominantly in R-hemithorax
Continue systemic steroids and wean as she clinically improves
Continue coumadin with goal INR 2-3
Aspiration precautions
Antitussants prn
DuoNebs + Budesonide
Diet as per DELIVERY SALES WORKER
Pulmonary service will continue to follow along
Assessment
-
Patient is a 79-year-old female with previous history of diabetes, hyperlipidemia, right lower extremity DVT on Coumadin presenting to ER with generalized weakness, cough complaints, left-sided flank pain over the past week. She had alerted EMS
today because of feeling of weakness, could not get up from commode and felt her legs give way. She denies any shortness of breath with this episode but was noted to be hypoxemic on arrival to ER. She was hypertensive with systolic BP of 200 and
tachycardia of 123. Serum calcium was very elevated at 15.2 which prompted malignancy w/u. Chest x-ray demonstrated possible right basilar disease, follow-up CT abdomen pelvis indicating postobstructive mass versus pneumonia at right base. We are
consulted for eval.
Impression:
Generalized weakness
Nonproductive cough
Abnormal CT, right sided postobstructive pneumonia versus mass
Suspect widely metastatic disease based on CT (liver, bone, adrenal)
Community-acquired pneumonia
Compressive atelectasis
Hypertensive urgency - resolved
Tachycardia - resolved
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
Suspect COPD with mild acute exacerbation
Emphysema noted on CT
Conditions present prior to admission:
Varicose veins
Non-pressure chronic ulcer of R ankle
Diabetes
Hyperlipidemia
Right lower extremity DVT on Coumadin
COPD
Former smoker, 30 pack years, quit 24 years ago
Obesity BMI 34
Plan
Respiratory status slowly improving-suspect mild COPD exacerbation in setting of undiagnosed lung cancer with RML/RLL atelectasis + post-obstructive PNA
Undoubtedly has underlying emphysema/COPD with [id number] smoking history
Supplemental oxygen as needed-currently on 5 L
Continue nebulizers - DuoNebs QID
Mucolytics
Decadron initiated-4 mg IV every 12 hours-without change today-wean as she clinically improves
Follow radiographically-until clearing - ultimately will need repeat CT chest as an outpatient
Aspiration precautions
Diet as per DELIVERY SALES WORKER --> cleared her for regular solids/thin liquids after VSE on 09/06/2020
Cultures reviewed
Stool cultures negative; Shiga toxin pending
C. difficile negative
MRSA screen 08/25/2024-negative
MRSA screen 09/06/2024-negative
Urine cultures no growth (08/25/2024)
Urine Legionella negative and Strep PNA urine antigen negative
Influenza negative
Finished antibiotics
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
Outpatient PET scan
R-lung ultrasound checked on 09/08/2024 showing moderate size right pleural effusion ---> Dr. Almaraz discussed the case with IR and patient is awaiting R-sided thoracentesis
Monitor hypercalcemia
Smoking history noted--quit 24 years ago
Smoking cessation continued
DVT prophylaxis-on Coumadin with goal 2-3
Nutrition
Physical therapy
Outpatient pulmonary [id number], 6-minute walk test, radiographic follow-up, potential biopsy
Pulmonary service will continue to follow along.
Diagnostic Data
Chest X-Ray: 08/25/24- New findings concerning for right-sided pneumonia.
09/21/15- No active disease.
CT Scan: CAP 08/27/24- Soft tissue fullness in the right hilar and infrahilar region with abrupt cut off of the bronchus intermedius. Findings likely represent a combination of infected neoplasm and postobstructive atelectasis within the right
middle and right lower lobe. Lymphadenopathy within the chest, which is likely neoplastic lymphadenopathy. Small to moderate right pleural effusion.
Patchy parenchymal opacity within the right upper lobe of the lung, which is likely patchy pneumonia. Patchy parenchymal opacity within the posterior aspect of the left lower lobe of the lung, most likely atelectasis, although pneumonia is also
possible. Minimal left pleural effusion. Changes of emphysema in the visualized upper lungs. Cholelithiasis. Mild fatty infiltration liver. Low-density lesion within the anterior left lobe of the liver, nonspecific, but concerning for hepatic
metastatic disease. 3 cm mass arising in the right adrenal gland, and CT features are most suggestive of adenoma or myelolipoma. However, given the rest of the findings on this examination, metastatic disease not completely excluded. Lucent lesions
within the skeleton as described, and raises concern for bony metastatic disease, especially lesion within C6. As warranted, further evaluation with nuclear medicine bone scan could be considered. As warranted, further evaluation with CT examination
with intravenous contrast may be helpful.
Total time spent today was 37 minutes for this encounter. Time includes reviewing laboratory test/imaging results, reviewing pertinent medical records, obtaining and reviewing medical history, performing an appropriate exam, ordering medications,
tests and procedures. Time also includes documentation of this encounter, coordinating patient care and communicating with other healthcare professionals. Total time does not include separately billed tests performed on this date of service.
Subjective Data
-
Date of Service:
Date of Service: September 08, 2024
Chief Complaint: Pulmonary Follow Up and Dyspnea Follow Up
Subjective:
Patient seen and evaluated today at bedside. Currently saturating 89% on 5 L/min nasal cannula. She still feels short of breath and has a cough with difficulty bringing up her phlegm. She says she feels like she is 'choking,' sometimes when she
starts coughing she has a hard time stopping her coughing spell. She currently denies chest pain, SANDERS, nausea, fevers or chills.
Review of Systems
General: Other (Negative unless mentioned above)
Objective Data
Data Reviewed
Vital Signs / I&O / Oxygen:
Vital Signs
Temp Pulse Resp BP Pulse Ox
98.3 F 80 18 148/57 88
09/08/24 09:08 09/08/24 09:08 09/08/24 09:08 09/08/24 09:08 09/08/24 09:08
Intake and Output
09/07/24 09/08/24 09/09/24
06:59 06:59 06:59
Intake Total 660 / 660 220 / 220
Balance 660 / 660 220 / 220
SaO2 88
Nasal Cannula flow liters per 5
minute
Physical Exam
General: Respiratory Distress (n), Comfortable and Other (NAD)
HEENT: Normocephalic, Anicteric and Moist Mucous Membranes
Cardiovascular: S1-S2, Rub (n) and Peripheral Edema (negative)
Respiratory: Wheeze (negative), Crackles (Bilaterally (R >L)), Rhonchi (negative), Non-Labored Respirations, Accessory Resp Muscle Use (n), Stridor (n) and Other (Diminished breath sounds at right base)
GI: Soft, Distended (Abdominal obesity), Non Tender and Normal Bowel Sounds
Neurology: Awake, Alert and Tremors (negative)
Skin: Warm, Dry and Cyanosis (n)
Labs/Micro/Reports
Lab Data
09/08/24 06:08
09/08/24 06:08
Laboratory Results
09/08/24
06:08
PT 30.1 H
INR 2.88
Microbiology
09/06/24 15:48 Feces/Stool Salmonella/Shigella Culture - Final
No Salmonella, Shigella, Aeromonas or Plesiomonas species
isolated.
09/06/24 15:48 Feces/Stool Campylobacter Culture - Final
No Campylobacter species isolated.
09/08/24 05:33 Urine Streptococcus pneumoniae Antigen (M - Final
Negative for Streptococcus pneumoniae antigen.
A negative result does not exclude infection with
Streptococcus pneumoniae. Clinical correlation is
recommended.
09/06/24 05:36 Nose MRSA Screen - Final
No Methicillin Resistant Staphylococcus aureus isolated.
09/06/24 15:48 Feces/Stool C. difficile GDH Antigen & Toxins - Final
Negative for toxigenic C.difficile
09/06/24 15:48 Feces/Stool - Final
Negative for Norovirus GI and GII.
09/06/24 15:48 Feces/Stool Stool Leukocytes - Final
[2024-09-08] MEDS: ATIVAN 0.5 MG PO ×2 (09:30→16:54)
[2024-09-08] MEDS: TESSALON PERLES 200 MG PO ×3 (09:30→16:54)
[2024-09-08] MEDS: NOVOLOG FLEXPEN 15 UNITS SC ×2 (09:58→13:59)
[2024-09-08] MEDS: DECADRON 4 MG IV ×2 (10:06→22:14)
--- NOTE | 2024-09-08 11:34 | W.PN.HOSP.TC ---
Today's Communication/Plan
-
Monitor vital signs
see plan
Ultrasound chest today
Continue with Decadron, nebs
Discussed with jeanna Mehta over the phone
Wean oxygen as tolerated
Assessment / Plan
Assessment / Plan
#Acute hypoxemic respiratory failure
#Community-acquired pneumonia
Pleural effusion
#Sepsis POA, now resolved
-Chest x-ray with right-sided infiltrate concerning for pneumonia, leukocytosis present
-Has required low levels of oxygen here, does not wear oxygen at baseline
-Was started on IV ceftriaxone and doxycycline empirically; s/p Doxy
-Urine antigen testing negative for Legionella; viral panel negative
-CT C/A/P showed signs of pneumonia superimposed on lung malignancy
-Suspect component of anxiety contributing to her shortness of breath
-On 4-5 L O2; wean o2 as tolerated
US today; IR consulted by pulmonary for possible need for thoracentesis. Will also check cytology.
Plan
-finished abx
-Trend CBC and temperature curve
-Wean oxygen for SpO2 >90% 88 to 92% in context of emphysema
-Continue with DuoNebs as needed; wheezing, added standing duonebs, inhaled pulmicort
repeat CXR 09/02 with improving PNA, atelectasis
started decadron; wean to 4Q12
US today; IR consulted by pulmonary for possible need for thoracentesis. Will also check cytology.
Thrombocytopenia
monitor
#Metastatic lung cancer
-CT C/A/P without contrast showed likely bronchogenic carcinoma the right lung, adrenal mass, C6 bone lesion
-Patient does have previous smoking history despite stopping 24 years ago, smoked as well
-Pulmonology and oncology following, planning for bronchoscopy with biopsy and tissue diagnosis
-Will need formal staging with PET/CT, brain MRI without any malignancy
-Will need to have consideration for PD-1 testing if non-small cell lung cancer noted
-MRI brain with and without contrast did not have signs of metastasis
hyponatremia
Monitor
#Hypercalcemia
-Very likely secondary to metastatic lung cancer, unclear histopathology at this time
-S/p pamidronate; nephrology sent paraprotein workup for multiple myeloma
-Follow-up iPTH levels, SPEP/UPEP + ETHAN, PTHrP levels
-Calcium levels normalized, continue to monitor BMP
#CKD 3
-On arrival had serum creatinine 1.2; last labs in November with creatinine 0.9
-Creatinine level has been fairly stable here, between 1.0 and 1.2
-Monitor daily BMP, avoid nephrotoxin
#T2DM with hyperglycemia
-On arrival blood sugar was 377; Home medications include metformin and glipizide
-Metformin held; continued on glipizide and started on ISS with Accu-Cheks
sugar now uncontrolled, on steroids. Started long-acting, short acting insulin
#Hypertension
-Home medication includes losartan, bisoprolol, diltiazem
-No known history of hypertensive systemic disease
-BP currently elevated
-Ordered IV hydralazine as needed
#H/O DVT of RLE
-Home medications include warfarin with INR goal 2�3
-INR now 2.8; restarted Coumadin at 3 mg
-Held warfarin evening of 08/31 and 09/01 for supratherapeutic INR
Anxiety
monitor
#Hypokalemia
-Likely nutritional, monitor
-Continue to trend BMP and replete as needed
DVT prophylaxis: Home warfarin
CODE STATUS: full code
Dr Peters Discussed with patient's 2 sons (Tyson and Gilmar) were present and he provided them with updates. Stated that they would prefer daily updates if possible. Gilmar's phone number [phone], would like results of tests here prior to
giving them to the patient so that they can be present
I spent a total of 52 minutes with the patient or on the floor. More than 50% of this time involved counseling and coordination of care.
General: Well Developed, No Apparent Distress, Comfortable and Obese
HEENT: Normocephalic, Atraumatic, Moist Mucous Membranes and Anicteric
Respiratory: Clear to Auscultation and Non Labored Respirations; Negative Accessory Resp Muscle Use
Cardiac: Regular Rhythm, S1/S2 and Murmur; Negative Rub or Gallop
GI: Soft, Nontender, Nondistended and Normal Bowel Sounds
Musculoskeletal: No Edema
Skin: Warm, Dry and Normal Turgor; Negative Rash
Neuro: AO x 3 and Nonfocal/Grossly Intact
Psych: Anxious
Anticipated Discharge: > 48 hours
Subjective/Interval History
-
Date of Service: September 08, 2024
sob
Objective Data
-
Labs:
Laboratory Results
09/08/24
06:08
WBC 9.3
Hgb 10.2 L
Hct 31.1 L
Plt Count 92 L
PT 30.1 H
INR 2.88
Sodium 134 L
Potassium 4.9
Chloride 102
Carbon Dioxide 26
BUN 38 H
Creatinine 0.7
Glucose 121 H
Calcium 7.7 L
Vital Signs:
Vital Signs
Temp Pulse Resp BP Pulse Ox
98.3 F 77 18 148/57 91
09/08/24 09:08 09/08/24 11:31 09/08/24 11:31 09/08/24 09:08 09/08/24 11:31
I&O
09/07/24 09/08/24 09/09/24
06:59 06:59 06:59
Intake Total 660 / 660 220 / 220
Balance 660 / 660 220 / 220
[2024-09-08 11:51] LABS: Glucose - Point of Care 143 mg/dl (70-99)
[2024-09-08 12:33] VITALS: BP 111/45
[2024-09-08 16:11] VITALS: BP 99/50
--- NOTE | 2024-09-08 17:02 | W.PN.UPDATE ---
Update Note
Progress Note Update
Was asked to see the patient because of higher FiO2 need.
Patient resting in her bed. On nasal cannula. No acute respiratory distress noted. Respiratory rate 18.
Patient is compared to yesterday her breathing is better. Compared to this morning the breathing is no different. Currently on mid flow nasal cannula at 15 L.
Denies any chest pain or palpitations. No nausea.
Chest with the decreased breath sounds in the right base along with the bronchial breathing in the right lower zone. No wheeze or rhonchi.
No JVD noted. No lower extremity edema.
Chart noted.
Patient with abnormal chest CT, right-sided post obstructive pneumonia versus mass. Suspected widely metastatic disease to liver, bone and adrenal glands.
Emphysema also noted. Known to have COPD.
Patient has right pleural effusion with she is moderate and quality on chest ultrasound.
Will repeat a chest x-ray and if increasing pleural fluid will consult IR for tap.
Will check oxygen saturation on 10 L if still requires a high FiO2 then then we will transfer her to IMU.
Patient on Coumadin for DVT with therapeutic INR, doubt PE. She is without chest pain.
SUNNY RN and family at bedside.
[2024-09-08 17:06] LABS: Glucose - Point of Care 81 mg/dl (70-99)
[2024-09-08] MEDS: NOVOLOG FLEXPEN SC (17:25)
[2024-09-08 19:31] VITALS: BP 144/60; BP_SYST 84
[2024-09-08 19:55] VITALS: BP 143/58; BP_SYST 81
--- NOTE | 2024-09-08 20:01 | W.PN.UPDATE ---
Update Note
Progress Note Update
Right thoracentesis performed, yielding 800 cc of blood tinged serous fluid. Sent for laboratory analysis.
[2024-09-08 20:52] LABS: Body Fluid pH 7.37
[2024-09-08] MEDS: TYLENOL 650 MG PO (20:59)
[2024-09-08 21:02] LABS: Body Fluid Mononuclear 97.6 %; Body Fluid Polymorphonuclear 2.4 %; Body Fluid WBC 18350 /CUMM
[2024-09-08 21:06] LABS: Body Fluid Amylase < 30 U/L; Body Fluid Glucose 117 mg/dl; Body Fluid LDH 1000 U/L
[2024-09-08 21:08] LABS: Body Fluid Triglycerides < 30 mg/dl
[2024-09-08 21:18] LABS: Body Fluid Second Tech CMC
[2024-09-08 21:44] LABS: Glucose - Point of Care 118 mg/dl (70-99)
[2024-09-08] MEDS: LANTUS 0.3 UNITS SC (22:14)
[2024-09-08 23:50] VITALS: BP 123/56
[2024-09-09 06:55] LABS: INR 2.75
[2024-09-09 07:09] LABS: Blood Urea Nitrogen 42 mg/dl (7-17); Calcium 7.5 mg/dl (8.4-10.2); Carbon Dioxide 24 mmol/L (22-30); Chloride 104 mmol/L (98-107); Estimated Creatinine Clearance 56 ml/min; Glucose 87 mg/dl (70-99); Potassium 5.1 mmol/L (3.5-5.1); Sodium 135 mmol/L (135-145); eGFR > 60.00
[2024-09-09 07:30] LABS: Hematocrit 30.5 % (37.0-47.0); Hemoglobin 10.3 g/dL (12.0-16.0); Mean Corp Hgb Conc. 33.8 g/dL (33.0-37.0); Mean Corpuscular Volume 88.9 fL (81.0-99.0); Mean Platelet Volume 10.6 fL (7.4-10.4); Platelet Count 92 10^3/uL (130-400); Red Blood Cell Count 3.43 10^6/uL (4.20-5.40); Red Cell Dist. Width 14.3 % (11.5-14.5); White Blood Cell Count 7.8 10^3/uL (4.8-10.8)
[2024-09-09] MEDS: PULMICORT 0.5 MG INH ×2 (07:36→19:40)
[2024-09-09] MEDS: DUONEB 3 ML INH ×4 (07:36→19:41)
[2024-09-09 07:43] VITALS: BP 143/67
[2024-09-09 08:04] LABS: Glucose - Point of Care 82 mg/dl (70-99)
--- NOTE | 2024-09-09 08:05 | W.PN.HOSP.TC ---
Today's Communication/Plan
-
.
Assessment / Plan
Assessment / Plan
Ms. Donna Stein is a 79yoF pmh metastatic lung cancer, HTN, CKD stage 3, type 2 DM admitted for hypercalcemia.
Acute hypoxemic respiratory failure
Community-acquired pneumonia
Pleural effusion
Sepsis POA, now resolved
- CXR: right-sided infiltrate concerning for pneumonia
- started on IV ceftriaxone and doxycycline empirically
- Urine antigen testing negative for Legionella
- viral panel negative
- CT C/A/P: signs of pneumonia superimposed on lung malignancy
- wean o2 as tolerated with goal of 88-92%
- thoracentesis 09/08 - 800cc drained. Light's criteria met - exudate effusion. Likely due to malignancy
Metastatic lung cancer
- CT C/A/P without contrast showed likely bronchogenic carcinoma the right lung, adrenal mass, C6 bone lesion
- Patient does have previous smoking history despite stopping 24 years ago, smoked as well
- Pulmonology and oncology following, planning for bronchoscopy with biopsy and tissue diagnosis
- Will need formal staging with PET/CT, brain MRI without any malignancy
Thrombocytopenia
- stable
- monitor
hyponatremia
- resolved
- Monitor
Hypercalcemia
- Very likely secondary to metastatic lung cancer, unclear histopathology at this time
- S/p pamidronate; negative workup for multiple myeloma
- iPTH levels, SPEP/UPEP + ETHAN - WNL
- elevated PTHrP levels
- Calcium levels normalized, continue to monitor BMP
CKD 3
- Monitor daily BMP, avoid nephrotoxin
T2DM with hyperglycemia
Obesity due to excess calories
- Metformin held; continued on glipizide and started on ISS with Accu-Cheks
- sugar now uncontrolled, on steroids. Started long-acting, short acting insulin
Hypertension
- Home medication includes losartan, bisoprolol, diltiazem
- No known history of hypertensive systemic disease
- Ordered IV hydralazine as needed
H/O DVT of RLE
- Home medications include warfarin with INR goal 2�3
- INR now 2.75; restarted Coumadin at 2 mg
Anxiety
- monitor
Hypokalemia
- resolved, overrepleted
- monitor BMP
Diarrhea
- norovirus, c. diff
dermal openings sacral/buttocks/posterior thigh
- likely secondary to moisture/diarrhea
- pressure redistributing device
- calazime lotion
Diet: diabetic diet
DVT prophylaxis: warfarin
CODE STATUS: FULL CODE
Anticipated Discharge: > 48 hours
Subjective/Interval History
-
Date of Service: September 09, 2024
Ms. Donna Stein is a 79yoF h metastatic lung cancer, HTN, CKD stage 3, type 2 DM admitted for hypercalcemia. Pt is dyspneic and has been having multiple loose stools. No hematochezia.
Objective Data
-
Labs:
Laboratory Results
09/09/24
06:29
WBC 7.8
Hgb 10.3 L
Hct 30.5 L
Plt Count 92 L
PT 29.0 H
INR 2.75
Sodium 135
Potassium 5.1
Chloride 104
Carbon Dioxide 24
BUN 42 H
Creatinine 0.8
Glucose 87
Calcium 7.5 L
Vital Signs:
Vital Signs
Temp Pulse Resp BP Pulse Ox
97.7 F 79 14 143/67 92
09/09/24 07:43 09/09/24 07:43 09/09/24 07:43 09/09/24 07:43 09/09/24 07:43
I&O
09/08/24 09/09/24 09/10/24
06:59 06:59 06:59
Intake Total 220 / 220 600 / 600 240 / 240
Balance 220 / 220 600 / 600 240 / 240
Review of Systems
-
History Source: Patient
Constitutional: Reports No Symptoms
EENT: Reports No Symptoms Reported
Respiratory: Reports Trouble Breathing; Denies Hemoptysis
Abdomen/GI: Reports Diarrhea; Denies Nausea, Vomiting or Bloody Stools
Genitourinary: Reports No Symptoms
Musculoskeletal: Reports No Symptoms
Physical Exam
-
General: Well Developed and Well Nourished
HEENT: Normocephalic, Atraumatic and Moist Mucous Membranes
Respiratory: Wheezes and Decreased Breath Sounds
Cardiac: Regular Rhythm, S1/S2 and Murmur; Negative Rub or Gallop
GI: Soft, Nontender, Nondistended and Normal Bowel Sounds
Musculoskeletal: No Clubbing, No Cyanosis and No Edema
Neuro: AO x 3
Psych: Calm
[2024-09-09] MEDS: NOVOLOG FLEXPEN-LOW RESISTANCE SC (08:09)
[2024-09-09] MEDS: NOVOLOG FLEXPEN SC (08:09)
[2024-09-09 08:30] LABS: Absolute Neutrophils -Man Diff 5.1 10^3/uL (1.4-6.5); Band Neutrophils 13 % (0-3); Lymphocytes 28 % (20-51); Metamyelocytes 3 % (-); Monocytes 2 % (2-9); Myelocytes 1 % (-); Platelets Checked Yes; Segmented Neutrophils 53 % (42-75)
[2024-09-09 08:31] LABS: Normal RBC Morphology Yes; Total Cells Counted 100
[2024-09-09] MEDS: GLUCOTROL 2.5 MG PO (08:43)
[2024-09-09] MEDS: ZOLOFT 50 MG PO (08:43)
[2024-09-09] MEDS: COZAAR 100 MG PO (08:43)
[2024-09-09] MEDS: MUCINEX 1200 MG PO ×2 (08:43→20:38)
[2024-09-09] MEDS: CARDIZEM CD 240 MG PO (08:44)
[2024-09-09] MEDS: LIPITOR 20 MG PO (08:44)
[2024-09-09] MEDS: ZEBETA 5 MG PO (08:44)
[2024-09-09] MEDS: DECADRON 4 MG IV ×2 (09:29→21:51)
[2024-09-09] MEDS: TESSALON PERLES 200 MG PO (09:29)
[2024-09-09] MEDS: ATIVAN 0.5 MG PO ×3 (09:38→22:03)
[2024-09-09] MEDS: TYLENOL 650 MG PO ×3 (09:55→22:03)
--- NOTE | 2024-09-09 10:45 | WOUNDNOTE ---
[facility] RN note: Patient admitted with hypercalcemia, thrombocytopenia. Patient lives in an apartment.
See H&P for complete history.
PMH: metastatic lung ca, CKD3, DVT RLE, anxiety.
Wound Location and type/assessment: Patient has scattered dermal openings sacral/buttocks/posterior thigh suspect r/t moisture. Patient's been having diarrhea. Calazime being used. GI following.
Appetite: she reports a good appetite.
Pressure redistribution devices in place: Centrella Pro mattress. DELORIS Toney is planning to apply an air overlay mattress. She assists with turning.
Plan: Skin cleansed gently with saline, Calazime ointment applied. Patient turned to L semi side lying position with help from DELORIS Toney. Heels off bed with air chair cushion. Instructed patient to take air chair cushion when discharged.
Will confirm orders with hospitalist/resident and discussed with DELORIS Toney.
Care plan to be updated and will follow as needed.
[2024-09-09 12:10] LABS: Glucose - Point of Care 194 mg/dl (70-99)
--- NOTE | 2024-09-09 13:40 | W.PN.PUL3 ---
Today's Communication / Plan
-
Trial of 20 mg of Lasix given persistent hypoxemia
Continue nebulizer therapy
Continue Incentive spirometry
Increase activity as able
Follow cytology
Continue IV corticosteroids, will consider transition to prednisone in the next 24 hours
Wean FiO2 as able
Assessment
-
Patient is a 79-year-old female with previous history of diabetes, hyperlipidemia, right lower extremity DVT on Coumadin presenting to ER with generalized weakness, cough complaints, left-sided flank pain over the past week. She had alerted EMS
today because of feeling of weakness, could not get up from commode and felt her legs give way. She denies any shortness of breath with this episode but was noted to be hypoxemic on arrival to ER. She was hypertensive with systolic BP of 200 and
tachycardia of 123. Serum calcium was very elevated at 15.2 which prompted malignancy w/u. Chest x-ray demonstrated possible right basilar disease, follow-up CT abdomen pelvis indicating postobstructive mass versus pneumonia at right base. We are
consulted for eval.
Impression:
Generalized weakness
Nonproductive cough
Abnormal CT, right sided postobstructive pneumonia versus mass
Suspect widely metastatic disease based on CT (liver, bone, adrenal)
Community-acquired pneumonia
Right pleural effusion compressive atelectasis
Status post thoracentesis this admission
Hypertensive urgency - resolved
Tachycardia - resolved
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
Suspect COPD with mild acute exacerbation
Emphysema noted on CT
Conditions present prior to admission:
Varicose veins
Non-pressure chronic ulcer of R ankle
Diabetes
Hyperlipidemia
Right lower extremity DVT on Coumadin
COPD
Former smoker, 30 pack years, quit 24 years ago
Obesity BMI 34
Plan
Respiratory status slowly improving-suspect mild COPD exacerbation in setting of undiagnosed lung cancer with RML/RLL atelectasis + ?post-obstructive PNA
-
Undoubtedly has underlying emphysema/COPD with [id number] smoking history
Currently on mid flow oxygen-10L
coarse breath sounds bilaterally. Not bronchospastic. 09/09/2024
Continue nebulizers - DuoNebs QID/budesonide while in the hospital.
Mucolytics encourage incentive spirometry
Decadron initiated-4 mg IV every 12 hours-without change today-wean as she clinically improves repeat-hopefully can transition to prednisone in the next 24 to 48 hours.
Chest x-ray postthoracentesis noted:.Continues to have bilateral infiltrates.
Follow radiographically-until clearing - ultimately will need repeat CT chest as an outpatient
Unclear if persistent interstitial abnormalities are related to lymphangitic spread of the tumor, cannot rule out some degree of volume but clinically she does not appear volume overloaded. Clinically does not appear overloaded.
Will need radiographic follow-up. If there is no onoing improvement on hypoxemia, will need to repeat CT chest in next few days.
-
Diet as per CHANNELER --> cleared her for regular solids/thin liquids after VSE on 09/06/2020
Remains afebrile without leukocytosis
Cultures reviewed
Stool cultures negative; Shiga toxin pending
C. difficile negative
MRSA screen 08/25/2024-negative
MRSA screen 09/06/2024-negative
Urine cultures no growth (08/25/2024)
Urine Legionella negative and Strep PNA urine antigen negative
Influenza negative
Completed antibiotics.
CT chest abdomen pelvis noted-likely bronchogenic carcinoma with adrenal and C6 bone lesion MRI negative for metastatic disease
Outpatient PET scan
R-lung ultrasound checked on 09/08/2024 showing moderate size right pleural effusion ---> status post thoracentesis 09/08/2024
pH 7.37/white blood cells 18,358/97% mononuclears/glucose 117/total protein 3/LDH 1000
Negative amylase and triglycerides.
Exudative. Could be malignant versus parapneumonic
Cytology pending as of 09/09/2024
Monitor hypercalcemia-currently resolved status post pamidronate.
Status post IV fluid resuscitation
Wondering if some of the hypoxemia and bilateral infiltrates may be post IV fluid resuscitation.
Echocardiogram 08/28/2024: Showed normal biventricular size and systolic function without regional wall abnormalities. Moderate .
Will try 20 mg of IV Lasix now.
Smoking history noted--quit 24 years ago
Has history of DVT of the right lower extremity.
DVT prophylaxis-on Coumadin with goal 2-3
Outpatient pulmonary [id number], 6-minute walk test, radiographic follow-up, potential biopsy
Pulmonary service will continue to follow along.

Diagnostic Data
Chest X-Ray: 08/25/24- New findings concerning for right-sided pneumonia.
09/21/15- No active disease.
CT Scan: CAP 08/27/24- Soft tissue fullness in the right hilar and infrahilar region with abrupt cut off of the bronchus intermedius. Findings likely represent a combination of infected neoplasm and postobstructive atelectasis within the right
middle and right lower lobe. Lymphadenopathy within the chest, which is likely neoplastic lymphadenopathy. Small to moderate right pleural effusion.
Patchy parenchymal opacity within the right upper lobe of the lung, which is likely patchy pneumonia. Patchy parenchymal opacity within the posterior aspect of the left lower lobe of the lung, most likely atelectasis, although pneumonia is also
possible. Minimal left pleural effusion. Changes of emphysema in the visualized upper lungs. Cholelithiasis. Mild fatty infiltration liver. Low-density lesion within the anterior left lobe of the liver, nonspecific, but concerning for hepatic
metastatic disease. 3 cm mass arising in the right adrenal gland, and CT features are most suggestive of adenoma or myelolipoma. However, given the rest of the findings on this examination, metastatic disease not completely excluded. Lucent lesions
within the skeleton as described, and raises concern for bony metastatic disease, especially lesion within C6. As warranted, further evaluation with nuclear medicine bone scan could be considered. As warranted, further evaluation with CT examination
with intravenous contrast may be helpful.
Subjective Data
-
Date of Service:
Date of Service: September 09, 2024
Chief Complaint: Pulmonary Follow Up and Dyspnea Follow Up
Subjective:
Remain hypoxemic
No significant hemoptysis or phlegm production.
Review of Systems
Cardiopulmonary: Dyspnea and Dyspnea on Exertion
Objective Data
Data Reviewed
Vital Signs / I&O / Oxygen:
Vital Signs
Temp Pulse Resp BP Pulse Ox
97.7 F 72 18 143/67 93
09/09/24 07:43 09/09/24 11:34 09/09/24 11:34 09/09/24 07:43 09/09/24 11:34
Intake and Output
09/08/24 09/09/24 09/10/24
06:59 06:59 06:59
Intake Total 220 / 220 600 / 600 240 / 240
Balance 220 / 220 600 / 600 240 / 240
SaO2 93
Nasal Cannula flow liters per 10
minute
Physical Exam
General: Respiratory Distress (n), Comfortable and Other (NAD)
HEENT: Normocephalic, Anicteric and Moist Mucous Membranes
Cardiovascular: S1-S2, Rub (n) and Peripheral Edema (negative)
Respiratory: Wheeze (negative), Crackles (Bilaterally (R >L)), Rhonchi (negative), Non-Labored Respirations, Accessory Resp Muscle Use (n), Stridor (n) and Other (Diminished breath sounds at right base)
GI: Soft, Distended (Abdominal obesity), Non Tender and Normal Bowel Sounds
Neurology: Awake, Alert and Tremors (negative)
Skin: Warm, Dry and Cyanosis (n)
Labs/Micro/Reports
Lab Data
09/09/24 06:29
09/09/24 06:29
Laboratory Results
09/09/24
06:29
PT 29.0 H
INR 2.75
Microbiology
09/09/24 10:13 Feces/Stool C. difficile GDH Antigen & Toxins - Final
Negative for toxigenic C.difficile
09/08/24 20:09 Pleural Fluid Gram Stain - Preliminary
09/06/24 15:48 Feces/Stool Salmonella/Shigella Culture - Final
No Salmonella, Shigella, Aeromonas or Plesiomonas species
isolated.
09/06/24 15:48 Feces/Stool Campylobacter Culture - Final
No Campylobacter species isolated.
09/06/24 15:48 Feces/Stool Shiga Toxin Test - Final
No E. coli Shiga Toxin 1 or 2 detected.
09/08/24 05:33 Urine Streptococcus pneumoniae Antigen (M - Final
Negative for Streptococcus pneumoniae antigen.
A negative result does not exclude infection with
Streptococcus pneumoniae. Clinical correlation is
recommended.
09/06/24 05:36 Nose MRSA Screen - Final
No Methicillin Resistant Staphylococcus aureus isolated.
09/06/24 15:48 Feces/Stool C. difficile GDH Antigen & Toxins - Final
Negative for toxigenic C.difficile
09/06/24 15:48 Feces/Stool - Final
Negative for Norovirus GI and GII.
09/06/24 15:48 Feces/Stool Stool Leukocytes - Final
[2024-09-09] MEDS: NOVOLOG FLEXPEN 15 UNITS SC ×2 (14:03→17:44)
[2024-09-09] MEDS: NOVOLOG FLEXPEN-LOW RESISTANCE 1 UNITS SC ×2 (14:04→17:45)
[2024-09-09 15:25] VITALS: PULSE 72; PULSE 75; O2SAT 86
[2024-09-09] MEDS: LASIX 20 MG IV (15:51)
[2024-09-09 15:53] VITALS: BP 107/55
[2024-09-09 16:51] LABS: Glucose - Point of Care 178 mg/dl (70-99)
[2024-09-09] MEDS: COUMADIN 2 MG PO (17:23)
[2024-09-09 21:51] LABS: Glucose - Point of Care 113 mg/dl (70-99)
[2024-09-09] MEDS: LANTUS 0.3 UNITS SC (21:56)
[2024-09-09 23:15] VITALS: BP 149/65
[2024-09-10] MEDS: TYLENOL 650 MG PO (05:51)
[2024-09-10] MEDS: TESSALON PERLES 200 MG PO (05:52)
[2024-09-10 06:00] VITALS: BMI 34.3
[2024-09-10] MEDS: DUONEB 3 ML INH ×3 (06:02→16:44)
[2024-09-10] MEDS: PULMICORT 0.5 MG INH (06:02)
[2024-09-10 06:38] LABS: Hematocrit 31.4 % (37.0-47.0); Hemoglobin 10.4 g/dL (12.0-16.0); Mean Corp Hgb Conc. 33.1 g/dL (33.0-37.0); Mean Corpuscular Hgb 29.5 pg (27.0-31.0); Mean Corpuscular Volume 89.2 fL (81.0-99.0); Platelet Count 76 10^3/uL (130-400); Red Blood Cell Count 3.52 10^6/uL (4.20-5.40); Red Cell Dist. Width 14.3 % (11.5-14.5); White Blood Cell Count 6.7 10^3/uL (4.8-10.8)
[2024-09-10 06:53] LABS: Blood Urea Nitrogen 46 mg/dl (7-17); Calcium 7.8 mg/dl (8.4-10.2); Carbon Dioxide 23 mmol/L (22-30); Chloride 106 mmol/L (98-107); Estimated Creatinine Clearance 56 ml/min; Glucose 70 mg/dl (70-99); Potassium 4.8 mmol/L (3.5-5.1); Sodium 134 mmol/L (135-145); eGFR > 60.00
--- NOTE | 2024-09-10 07:35 | W.PN.HOSP.TC ---
Today's Communication/Plan
-
.
Assessment / Plan
Assessment / Plan
Ms. Donna Stein is a 79yoF pmh metastatic lung cancer, HTN, CKD stage 3, type 2 DM admitted for hypercalcemia.
Acute hypoxemic respiratory failure
Community-acquired pneumonia
Pleural effusion
Sepsis POA, now resolved
- CXR: right-sided infiltrate concerning for pneumonia
- started on IV ceftriaxone and doxycycline empirically
- Urine antigen testing negative for Legionella
- viral panel negative
- CT C/A/P: signs of pneumonia superimposed on lung malignancy
- wean o2 as tolerated with goal of 88-92%
- thoracentesis 09/08 - 800cc drained. Light's criteria met - exudate effusion. Likely due to malignancy
- CXR 09/10 - Diffuse bilateral interstitial pneumonia with small right pleural effusion
- upgrade to ICU for respiratory decompensation requiring 15L O2 NRM
Metastatic lung cancer
- CT C/A/P without contrast showed likely bronchogenic carcinoma the right lung, adrenal mass, C6 bone lesion
- Patient does have previous smoking history despite stopping 24 years ago, smoked as well
- Pulmonology and oncology following, planning for bronchoscopy with biopsy and tissue diagnosis
- Will need formal staging with PET/CT, brain MRI without any malignancy
Thrombocytopenia
- stable
- monitor
Hypercalcemia
- Very likely secondary to metastatic lung cancer, unclear histopathology at this time
- S/p pamidronate; negative workup for multiple myeloma
- iPTH levels, SPEP/UPEP + ETHAN - WNL
- elevated PTHrP levels
- Calcium levels normalized, continue to monitor BMP
CKD 3
- Monitor daily BMP, avoid nephrotoxins
T2DM with hyperglycemia
Obesity due to excess calories
- Metformin held; continued on glipizide and started on ISS with Accu-Cheks
- sugar now uncontrolled, on steroids. Started long-acting, short acting insulin
Hypertension
- Home medication includes losartan, bisoprolol, diltiazem
- No known history of hypertensive systemic disease
- Ordered IV hydralazine as needed
H/O DVT of RLE
- Home medications include warfarin with INR goal 2�3
- INR now 2.75; restarted Coumadin at 2 mg
Anxiety
- monitor
Diarrhea
- norovirus, c. diff - negative
Dermal openings sacral/buttocks/posterior thigh
- likely secondary to moisture/diarrhea
- pressure redistributing device
- calazime lotion
Diet: diabetic diet
DVT prophylaxis: warfarin
CODE STATUS: FULL CODE
Anticipated Discharge: > 48 hours
Subjective/Interval History
-
Date of Service: September 10, 2024
Ms. Donna Stein is a 79yoF h metastatic lung cancer, HTN, CKD stage 3, type 2 DM admitted for hypercalcemia. Dyspneic and hypoxic to low SpO2 low 80s%, requiring 15L O2 NRM.
Objective Data
-
Labs:
Laboratory Results
09/10/24
05:35
WBC 6.7
Hgb 10.4 L
Hct 31.4 L
Plt Count 76 L
Sodium 134 L
Potassium 4.8
Chloride 106
Carbon Dioxide 23
BUN 46 H
Creatinine 0.8
Glucose 70
Calcium 7.8 L
Vital Signs:
Vital Signs
Temp Pulse Resp BP Pulse Ox
97.8 F 74 23 149/65 92
09/09/24 23:15 09/10/24 06:05 09/10/24 06:05 09/09/24 23:15 09/10/24 06:05
I&O
09/09/24 09/10/24 09/11/24
06:59 06:59 06:59
Intake Total 600 / 600 900 / 900
Output Total 480 / 480
Balance 600 / 600 420 / 420
Review of Systems
-
History Source: Patient
Constitutional: Reports No Symptoms
EENT: Reports No Symptoms Reported
Respiratory: Reports Trouble Breathing and Wheezing; Denies Hemoptysis
Cardiac: Reports No Symptoms
Abdomen/GI: Reports Diarrhea; Denies Abdominal Pain, Nausea, Vomiting or Bloody Stools
Skin: Reports No Symptoms
Physical Exam
-
General: Well Developed, Well Nourished, Respiratory Distress and Obese
HEENT: Normocephalic, Atraumatic, Moist Mucous Membranes, Anicteric and Oxygen (15L O2 nonrebreather mask)
Respiratory: Wheezes and Accessory Resp Muscle Use
Cardiac: Regular Rhythm and S1/S2
GI: Soft, Nontender, Nondistended and Normal Bowel Sounds
Musculoskeletal: No Clubbing, No Cyanosis and No Edema
Neuro: Awake
[2024-09-10 07:45] VITALS: BP 138/66
[2024-09-10 08:01] LABS: Glucose - Point of Care 102 mg/dl (70-99)
[2024-09-10 08:10] VITALS: BP 153/68
[2024-09-10] MEDS: NOVOLOG FLEXPEN SC ×3 (08:19→17:51)
[2024-09-10] MEDS: NOVOLOG FLEXPEN-LOW RESISTANCE SC ×3 (08:20→17:51)
--- NOTE | 2024-09-10 08:29 | PTCARENOTE ---
RN was called to room by PCT as pt's SpO2 was 85% on 12L NC. Pt oxygen sat was not improving with increased NC and NRB was placed on patient. Pt endorsed feeling SOB, RR was 28. RN called rapid response as pt's oxygen saturation was only 87% on NRB.
Hospitalist an RT came to bedside to assess patient. Orders placed for flu, covid, portable chest x-ray, ekg. See flowsheets/MAT for further care details.
[2024-09-10] MEDS: LASIX 40 MG IV (08:51)
[2024-09-10 09:01] LABS: COVID-19 Antigen Negative (Negative)
[2024-09-10 09:22] LABS: PT 27.8 Sec (11.4-14.6)
--- NOTE | 2024-09-10 09:31 | W.PN.UPDATE ---
Update Note
Progress Note Update
Discussed with pt and her son (POA) about her code status. Patient does not wish to have life saving measures including CPR, breathing tube, or being on a ventilator. She wishes to be DNR.
[2024-09-10] MEDS: ATIVAN 0.5 MG IV ×3 (09:53→23:46)
[2024-09-10] MEDS: CARDIZEM CD PO (10:42)
[2024-09-10] MEDS: COZAAR PO (10:42)
[2024-09-10] MEDS: LIPITOR PO (10:43)
[2024-09-10] MEDS: GLUCOTROL PO (10:43)
[2024-09-10] MEDS: MUCINEX PO ×2 (10:43→18:39)
[2024-09-10] MEDS: ZOLOFT PO (10:44)
[2024-09-10] MEDS: ZEBETA PO (10:44)
[2024-09-10 10:56] LABS: NT-proBNP 170 pg/ml
[2024-09-10 11:41] LABS: Glucose - Point of Care 75 mg/dl (70-99)
[2024-09-10 11:50] VITALS: BP 133/71
[2024-09-10 11:55] VITALS: BP 86/59
[2024-09-10 12:16] VITALS: BMI 34.3
[2024-09-10] MEDS: MORPHINE SULFATE IV ×3 (12:21→16:16)
--- NOTE | 2024-09-10 12:42 | CM ---
Addendum entered by Debo Sarah 09/10/24 14:40:
CM consult for hospice
Referred to Hospice for GIP
Discussion with Vangie, plan for comfort care, morphine drip
Plan for GIP admission in next day or two if pt does not pass
Discharge Disposition- comfort vs GIP
Original Note:
CM reviewed chart and pt with nursing- ADC>48 hours
Pt with rapid response today
On 15L mid flow with NRB
Per chart review, plan for [facility] on dc
Discharge Disposition- [facility]
[2024-09-10] MEDS: MORPHINE SULFATE 1 MG IV ×3 (12:52→14:43)
[2024-09-10] MEDS: DECADRON 4 MG IV (12:57)
--- NOTE | 2024-09-10 12:57 | W.PN.PUL3 ---
Today's Communication / Plan
-
Comfort measures
IV morphine
Ativan as needed
Oxygen supplementation
Discontinue unnecessary medication
Discussed with primary team
Sign off
Assessment
-
Patient is a 79-year-old female with previous history of diabetes, hyperlipidemia, right lower extremity DVT on Coumadin presenting to ER with generalized weakness, cough complaints, left-sided flank pain over the past week. She had alerted EMS
today because of feeling of weakness, could not get up from commode and felt her legs give way. She denies any shortness of breath with this episode but was noted to be hypoxemic on arrival to ER. She was hypertensive with systolic BP of 200 and
tachycardia of 123. Serum calcium was very elevated at 15.2 which prompted malignancy w/u. Chest x-ray demonstrated possible right basilar disease, follow-up CT abdomen pelvis indicating postobstructive mass versus pneumonia at right base. We are
consulted for eval.
Impression:
Generalized weakness
Nonproductive cough
Abnormal CT, right sided postobstructive pneumonia versus mass
Suspect widely metastatic disease based on CT (liver, bone, adrenal)
Community-acquired pneumonia
Right pleural effusion compressive atelectasis
Status post thoracentesis this admission
Hypertensive urgency - resolved
Tachycardia - resolved
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
Suspect COPD with mild acute exacerbation
Emphysema noted on CT
Conditions present prior to admission:
Varicose veins
Non-pressure chronic ulcer of R ankle
Diabetes
Hyperlipidemia
Right lower extremity DVT on Coumadin
COPD
Former smoker, 30 pack years, quit 24 years ago
Obesity BMI 34
Plan
Respiratory status slowly improving-suspect mild COPD exacerbation in setting of undiagnosed lung cancer with RML/RLL atelectasis + ?post-obstructive PNA
-
Unfortunately, despite maximal therapy including antibiotics, IV steroids, nebulizers and diuretics.
Chest x-ray is worse today.
Her proBNP is normal-less likely volume overload.
I am suspecting lymphangitic spread of the tumor. Presumptive stage IV lung cancer. Based on imaging-again, cytology pending.
No signs of infection, no leukocytosis or fevers.
Unless there is a component of aspiration pneumonitis which is less likely.
-
Patient gasping for air, on the nonrebreather mask
She would not want intubation or aggressive care.
Family is at the bedside.
They were told cytology from the pleural effusion is pending but possibly is malignant.
-
Discussed with Dr. Peters from internal medicine who has ordered morphine.
Hospice has been consulted.
Patient would like to proceed with comfort/hospice measures.
-
Would discontinue all unnecessary medications at this point.
-
Continue oxygen supplementation for comfort.
No further recommendation from the pulmonary perspective.
Sign off

Diagnostic Data
Chest X-Ray: 08/25/24- New findings concerning for right-sided pneumonia.
09/21/15- No active disease.
CT Scan: CAP 08/27/24- Soft tissue fullness in the right hilar and infrahilar region with abrupt cut off of the bronchus intermedius. Findings likely represent a combination of infected neoplasm and postobstructive atelectasis within the right
middle and right lower lobe. Lymphadenopathy within the chest, which is likely neoplastic lymphadenopathy. Small to moderate right pleural effusion.
Patchy parenchymal opacity within the right upper lobe of the lung, which is likely patchy pneumonia. Patchy parenchymal opacity within the posterior aspect of the left lower lobe of the lung, most likely atelectasis, although pneumonia is also
possible. Minimal left pleural effusion. Changes of emphysema in the visualized upper lungs. Cholelithiasis. Mild fatty infiltration liver. Low-density lesion within the anterior left lobe of the liver, nonspecific, but concerning for hepatic
metastatic disease. 3 cm mass arising in the right adrenal gland, and CT features are most suggestive of adenoma or myelolipoma. However, given the rest of the findings on this examination, metastatic disease not completely excluded. Lucent lesions
within the skeleton as described, and raises concern for bony metastatic disease, especially lesion within C6. As warranted, further evaluation with nuclear medicine bone scan could be considered. As warranted, further evaluation with CT examination
with intravenous contrast may be helpful.
Subjective Data
-
Date of Service:
Date of Service: September 10, 2024
Chief Complaint: Pulmonary Follow Up and Dyspnea Follow Up
Subjective:
Unfortunately, more short of breath, more hypoxemic
Anxious
Gasping for air
Denies any hemoptysis or phlegm production.
Review of Systems
Cardiopulmonary: Dyspnea, Dyspnea on Exertion and Cough
GI: Abdominal Pain (n) and Nausea (n)
Objective Data
Data Reviewed
Vital Signs / I&O / Oxygen:
Vital Signs
Temp Pulse Resp BP Pulse Ox
97.1 F 104 23 133/71 90
09/10/24 08:10 09/10/24 12:00 09/10/24 12:00 09/10/24 11:50 09/10/24 12:00
Intake and Output
09/09/24 09/10/24 09/11/24
06:59 06:59 06:59
Intake Total 600 / 600 900 / 900
Output Total 480 / 480
Balance 600 / 600 420 / 420
SaO2 90
Nasal Cannula flow liters per 12
minute
Physical Exam
General: Respiratory Distress (Moderate arrest) and Other (NAD)
HEENT: Normocephalic, Anicteric and Moist Mucous Membranes
Cardiovascular: S1-S2, Rub (n) and Peripheral Edema (negative)
Respiratory: Wheeze (negative), Crackles (Bilaterally (R >L)), Rhonchi (negative), Non-Labored Respirations, Accessory Resp Muscle Use (n), Stridor (n) and Other (Diminished breath sounds at right base)
GI: Soft, Distended (Abdominal obesity), Non Tender and Normal Bowel Sounds
Neurology: Awake, Alert and Tremors (negative)
Skin: Warm, Dry and Cyanosis (n)
Labs/Micro/Reports
Lab Data
09/10/24 05:35
09/10/24 05:35
Laboratory Results
09/10/24
08:59
PT 27.8 H
INR 2.60
Microbiology
09/10/24 08:34 Nasal Swab Influenza Types A & B (NELL) - Final
Negative for Influenza A & B, NAAT
Negative results must be combined with clinical observations
and patient history.
Nucleic Acid Amplification test (NAAT)performed on the
[employer] platform.
09/08/24 20:09 Pleural Fluid Body Fluid Culture - Preliminary
No Growth After 18-24 Hours
09/08/24 20:09 Pleural Fluid Gram Stain - Preliminary
09/09/24 10:13 Feces/Stool C. difficile GDH Antigen & Toxins - Final
Negative for toxigenic C.difficile
09/06/24 15:48 Feces/Stool Salmonella/Shigella Culture - Final
No Salmonella, Shigella, Aeromonas or Plesiomonas species
isolated.
09/06/24 15:48 Feces/Stool Campylobacter Culture - Final
No Campylobacter species isolated.
09/06/24 15:48 Feces/Stool Shiga Toxin Test - Final
No E. coli Shiga Toxin 1 or 2 detected.
09/08/24 05:33 Urine Streptococcus pneumoniae Antigen (M - Final
Negative for Streptococcus pneumoniae antigen.
A negative result does not exclude infection with
Streptococcus pneumoniae. Clinical correlation is
recommended.
--- NOTE | 2024-09-10 13:18 | PTOTSP ---
CHART REVIEWED AND SPOKE WITH RN. PATIENT WITH DECLINE IN MEDICAL STATUS, S/P RAPID RESPONSE, REQUIRING 15L AND NRB MASK. PATIENT HAS DECIDED TO PURSUE COMFORT MEASURES/HOSPICE. WILL DISCHARGE FROM THERAPY AT THIS TIME.
--- NOTE | 2024-09-10 13:18 | HOSPNOTE ---
Addendum entered by Vangie Santoyo RN 09/10/24 14:30:
Met with family and discussed hospice and the philosophy. Both sons are in agreement to keep the patient comfortable. After discussing with Attending a morphine drip will be started and we will wean down the oxygen support. All medications were
discontinued and comfort meds only per family. I assured them we will manage the patients shortness of breath and any anxiety. We will continue to follow and support. Attending and CM aware. Floor RN updated.
Original Note:
Referral received for hospice care. Will assess patient and will discuss with attending.
[2024-09-10] MEDS: MORPHINE 100 IV (15:26)
[2024-09-10] MEDS: MORPHINE SULFATE 2 MG IV ×6 (16:22→23:39)
[2024-09-10 16:33] VITALS: BP 83/43
[2024-09-10] MEDS: COUMADIN PO (18:39)
--- NOTE | 2024-09-10 19:30 | PTCARENOTE ---
pt was tachypneic RR in the 30's. followed comfort measure protocol.
[2024-09-10] MEDS: PULMICORT INH (20:56)
[2024-09-10] MEDS: DUONEB INH (20:56)
[2024-09-10 23:00] VITALS: BP 83/38
[2024-09-10] MEDS: NSS (PRESERVATIVE FREE) 0.25 ML IV (23:46)
[2024-09-11] MEDS: MORPHINE SULFATE 2 MG IV ×6 (00:42→04:39)
--- NOTE | 2024-09-11 07:47 | W.PN.HOSP.TC ---
Today's Communication/Plan
-
.
Assessment / Plan
Assessment / Plan
Ms. Donna Stein is a 79yoF pmh metastatic lung cancer, HTN, CKD stage 3, type 2 DM admitted for hypercalcemia.
Acute hypoxemic respiratory failure
Community-acquired pneumonia
Pleural effusion
Sepsis POA, now resolved
- CT C/A/P: signs of pneumonia superimposed on lung malignancy
- wean o2 as tolerated with goal of 88-92%
- CXR 09/10 - Diffuse bilateral interstitial pneumonia with small right pleural effusion
Metastatic lung cancer
- CT C/A/P without contrast showed likely bronchogenic carcinoma the right lung, adrenal mass, C6 bone lesion
- holding life saving medications at this time, on comfort care
- hospice consulted
Hypercalcemia
- Very likely secondary to metastatic lung cancer, unclear histopathology at this time
- S/p pamidronate; negative workup for multiple myeloma
- iPTH levels, SPEP/UPEP + ETHAN - WNL
- elevated PTHrP levels
T2DM with hyperglycemia
Obesity due to excess calories
- medications held
Hypertension
- holding medications
Anxiety
- monitor
Diet: regular diet
DVT prophylaxis: none
CODE STATUS: DNR
Anticipated Discharge: 24 - 48 hours
Subjective/Interval History
-
Date of Service: September 11, 2024
Ms. Donna Stein is a 79yoF pmh metastatic lung cancer, HTN, CKD stage 3, type 2 DM admitted for hypercalcemia. Pt and family decided to change code status to DNR and she is now on comfort care measures. Pt sleeping. Per her son, she is much more
comfortable than yesterday.
Objective Data
-
Vital Signs:
Vital Signs
Temp Pulse Resp BP Pulse Ox
98.4 F 110 26 83/38 86
09/10/24 23:00 09/11/24 00:00 09/11/24 00:00 09/10/24 23:00 09/11/24 00:24
I&O
09/10/24 09/11/24 09/12/24
06:59 06:59 06:59
Intake Total 900 / 900 0 / 0
Output Total 480 / 480
Balance 420 / 420 0 / 0
Review of Systems
-
Unable to obtain full review of systems at this time due to: Other (pt sleeping)
Physical Exam
-
General: Well Developed, Well Nourished and Comfortable
HEENT: Normocephalic, Atraumatic and Anicteric
Respiratory: Wheezes and Non Labored Respirations
Cardiac: Regular Rhythm and S1/S2
GI: Soft, Nontender, Nondistended and Normal Bowel Sounds
Musculoskeletal: No Clubbing, No Cyanosis and No Edema
[2024-09-11] MEDS: MORPHINE 100 IV (09:43)
[2024-09-11] MEDS: ATIVAN 0.5 MG IV (11:36)
--- NOTE | 2024-09-11 11:46 | PTCARENOTE ---
End of life morphine infusion/bolus. Pt currently on step 5 at 8mg/hr. Per protocol pt would receive morphine 8mg IV for breakthrough. Overnight pt did not received more than 2mg IV of morphine for breakthrough. Called Dr. Peters and pharm. Dr. Peters
stated to keep pt at step 5 - 8mg/hr and call if morphine bolus needed.
[2024-09-11] MEDS: MORPHINE SULFATE 4 MG IV (12:36)
[2024-09-11] MEDS: MORPHINE SULFATE 6 MG IV (14:39)
[2024-09-11] MEDS: MORPHINE SULFATE 8 MG IV ×2 (16:00→17:49)
--- NOTE | 2024-09-11 18:21 | W.PN.DEATH ---
Pronouncement of
-
Called to see patient to pronounce.
No spontaneous heart tones or respirations noted.
Patient not responsive to verbal stimuli.
No neurological signs of life present
Patient is pronounced .
Time of : 18:10
Date of : 09/11/24
Cause of : Acute hypoxemic respiratory failure, metastatic lung cancer with possible lymphangitic spread
Family Notified: Yes
--- NOTE | 2024-09-11 18:21 | W.DCSUMMARY ---
Discharge Summary
Discharge Data
Date of Admission: 08/25/24
Date of Discharge: 09/11/24
-
Pending Results: No
Hospital Course
79-year-old female with history of DVT on warfarin that presented with dyspnea and hypercalcemia. 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 Was planned to have bronchoscopy with
biopsy though clinically worsened. Suspect development of ARDS versus lymphangitic spread of her tumor. Family elected for hospice care on 09/06/2024. Was placed on the comfort measures with IV morphine drip for air hunger. Patient passed at
1810 on 09/11/2024.
Discharge Plan
-
Patient Disposition:
Activity Restrictions/Additional Instructions:
Wound Care Instructions
Sacral/buttocks/posterior thigh open areas-clean gently with mild skin cleanser, zinc barrier ointment (i.e. Calazime) 3 times a day and as needed for incontinence.
Evaluate for an air mattress.
Elevate heels off bed with pillow/s.
Pressure redistributing chair cushion (i.e. Air chair cushion).
Follow up at wound care center if needed, call for an appointment.
Referrals:
Portia Lao DO [Active] - in one to two weeks (PFTs)
Lilian Carrera DO [Family Provider] -
Prescriptions:
No Action
metformin 500 mg Tablet
500 mg PO BID
atorvastatin 20 mg Tablet
20 mg PO DAILY
diltiazem HCl 240 mg Capsule,Extended Release 24hr
240 mg PO DAILY
bisoprolol fumarate 5 mg Tablet
5 mg PO DAILY
warfarin 5 mg Tablet
9 mg PO DAILY
Patient Comments:
patient stated that on 08/26/24 her inr doctor told her to hold warfarin for 3 days then on 08/28/24 her md called again stating to hold the warfarin for nother 3 days.
pioglitazone 30 mg Tablet
30 mg PO DAILY
losartan 100 mg Tablet
100 mg PO DAILY
sertraline 50 mg Tablet
50 mg PO DAILY
acetaminophen [Tylenol] 325 mg Tablet
650 mg PO Q4HPRN PRN (Reason: back pain)
Coricidin 2-325 mg Tablet
1 tab PO DAILYPRN PRN (Reason: cough)
guaifenesin [Mucinex] 600 mg Tablet Extended Release 12hr
600 mg PO BIDPRN PRN (Reason: cough)
Discharge Date and Time
Print Language: ARMENIAN
--- NOTE | 2024-09-11 19:09 | PTCARENOTE ---
Pt at 1809. Dr Peters notified and came to see pt at bedside. Morphine gtt discontinued and remaining morphine wasted with second RN. [facility] called. Family at bedside.
== END 2024-09-11 18:10 | disposition expired | DRG 871 ==
LOC: 3 WEST ACU 02:16
PROVIDERS: Hospitalist; Internal Medicine; Internal Medicine Critical Care Medicine; Physician Assistant; Radiology Vascular & Interventional Radiology; Specialist; ADMITTING PHYSICIAN Internal Medicine; ATTENDING PHYSICIAN Internal Medicine; CONSULT PHYSICIAN Internal Medicine; EMERGENCY PHYSICIAN Emergency Medicine; FAMILY PHYSICIAN Family Medicine; OTHER PHYSICIAN Internal Medicine Hematology & Oncology; OTHER PHYSICIAN Student in an Organized Health Care Education/Training Program
PROC: 0W993ZZ Drainage of Right Pleural Cavity, Percutaneous Approach (ICD-10-PCS; 2024-09-08)
DX: A41.9 Sepsis, unspecified organism (principal); J18.9 Pneumonia, unspecified organism; C34.91 Malignant neoplasm of unspecified part of right bronchus or lung; C78.7 Secondary malignant neoplasm of liver and intrahepatic bile duct; C79.51 Secondary malignant neoplasm of bone; J91.0 Malignant pleural effusion; L97.319 Non-pressure chronic ulcer of right ankle with unspecified severity; C79.71 Secondary malignant neoplasm of right adrenal gland; E78.00 Pure hypercholesterolemia, unspecified; Z66 Do not resuscitate; Z51.5 Encounter for palliative care; E83.52 Hypercalcemia; E11.65 Type 2 diabetes mellitus with hyperglycemia; I16.0 Hypertensive urgency; J43.9 Emphysema, unspecified; I08.0 Rheumatic disorders of both mitral and aortic valves; E87.6 Hypokalemia; N18.30 Chronic kidney disease, stage 3 unspecified; E11.22 Type 2 diabetes mellitus with diabetic chronic kidney disease; I12.9 Hypertensive chronic kidney disease with stage 1 through stage 4 chronic kidney disease, or unspecified chronic kidney disease; E66.9 Obesity, unspecified; D69.6 Thrombocytopenia, unspecified; F41.9 Anxiety disorder, unspecified; R19.7 Diarrhea, unspecified; E11.621 Type 2 diabetes mellitus with foot ulcer; K59.00 Constipation, unspecified; Z11.52 Encounter for screening for COVID-19; Z68.34 Body mass index [BMI] 34.0-34.9, adult; Z79.01 Long term (current) use of anticoagulants; Z79.84 Long term (current) use of oral hypoglycemic drugs; Z79.899 Other long term (current) drug therapy; Z86.718 Personal history of other venous thrombosis and embolism; Z87.891 Personal history of nicotine dependence
CPT/HCPCS: 88305; 32555; 70553; 71045; 71046; 71250; 74176; 74230; 76604; 80048; 80053; 81003; 81015; 82150; 82306; 82330; 82570; 82652; 82945; 82947; 82962; 83519; 83615; 83735; 83880; 83970; 83986; 84100; 84155; 84156; 84157; 84165; 84443; 84478; 84484; 85025; 85027; 85610; 85730; 87015; 87045; 87046; 87070; 87086; 87102; 87116; 87205; 87324; 87427; 87449; 87502; 87798; 87811; 87899; 88112; 88341; 88342; 89051; 89055; 92610; 92611; 93005; 93306; 94640; 96361; 96365; 96375; 97116; 97167; 97530; 97535; 99285; A9575; J2430